=== PATIENT | female | born 2000 | race Caucasian/White ===

== ENCOUNTER 2020-08-25 10:22 | Emergency (ER) | payer OTHER, SELFPAY ==
[2020-08-25 10:36] VITALS: BP 128/79; PULSE 81; RESP 16; TEMP 37.4; O2SAT 96; BMI 24.1
--- NOTE | 2020-08-25 10:43 | ED.ABDPAIN ---
HPI - Abdominal Pain General Chief Complaint: Abdominal Pain Stated Complaint: ABD PAIN Time Seen by Provider: 08/25/20 10:35 Source: patient Mode of arrival: ambulatory Limitations: no limitations History of Present Illness HPI narrative: Patient comes to emergency room complaining of watery diarrhea for 1 week. Patient states she has mild intermittent abdominal cramping, at this time no pain. Patient denies vomiting, no fever. MD elicited complaint: other ( Diarrhea) Related Data Previous Rx's Medication Instructions Recorded loperamide 2 mg PO Q6H PRN #10 tab 08/25/20 Allergies Allergy/AdvReac Type Severity Reaction Status Date / Time No Known Allergies Allergy Unverified 07/18/20 16:43 [No Known Allergies*] Review of Systems Review of Systems Constitutional : No Weight loss, No Fever, No Chills, No Night Sweats, No Fatigue, No Malaise ENT/Mouth : No Hearing loss, No Ear Pain, No Nasal Congestion, No Sinus Pain, No Hoarseness, No sore throat, No Rhinorrhea, No Swallowing Difficulty Eyes: No Eye Pain, No Swelling, No Redness, No Foreign Body, No Discharge, No Vision Changes Cardiovascular : No Chest Pain, No SOB, No Dyspnea on Exertion, No Orthopnea, No Edema, No Palpitations Respiratory : No Cough, No Sputum, No Wheezing, No Smoke Exposure, No Dyspnea Gastrointestinal : No Nausea, No Vomiting, complaining of watery diarrhea, intermittent abdominal cramping Genitourinary : no irregular bleeding, No Dysuria, No Urinary Frequency, No Hematuria, No Urinary Incontinence, No Urgency, No Flank Pain, No Urinary Flow Changes, No Hesitancy Musculoskeletal : No joint pain, No Myalgias, No Joint Swelling Skin : No Skin Lesions, No rash Neuro : No Weakness, No Numbness, No Paresthesias, No Loss of Consciousness, No Dizziness, No Headache Psych : No Anxiety/Panic, No Depression, No SI/HI/AH/VH, No Social Issues, Heme/Lymph: No Bruising, No Bleeding,No Lymphadenopathy Endocrine : No Polyuria, No Polydipsia, No Temperature Intolerance Yes all other systems are reviewed and are negative Physical Exam Vital Signs: Vital Signs: Vital Signs Temp Pulse Resp BP Pulse Ox 08/25/20 11:48 99.6 F 75 16 119/63 98 08/25/20 10:36 99.4 F 81 16 128/79 96 Body Mass Index 24.1 Appearance: Alert. Oriented X3. No acute distress. Eyes: Pupils equal, round and reactive to light. ENT: Pharynx normal. Neck: Normal inspection. Neck supple. No lymph nodes noted. No crepitus CVS: Normal heart rate and rhythm. Pulses normal. Normal S1 and S2 Respiratory: No respiratory distress. Breath sounds normal. No Wheezing. No rales Abdomen: Soft and nontender. No rigidity. No distention. good BS x4 Skin: Skin warm and dry. Normal skin color. Normal skin turgor. Extremities: No lower extremity edema. No lower extremity edema. No Lacerations. No Rash Neuro: Oriented X 3. No motor deficit. No sensory deficit. Moving all extermities. No slurred speech. Course Course Course Narrative: patient feeling better, no longer having diarrhea no abdominal pain, no cramping. Patient's symptoms likely secondary to a viral illness MDM - Abdominal Pain Lab Data Result diagrams: 08/25/20 10:48 08/25/20 10:48 Labs: Lab Results 08/25/20 08/25/20 08/25/20 Range/Units 10:48 10:48 11:47 WBC 5.0 (4.8-10.8) X10*3/uL RBC 4.28 (4.20-5.50) X10*6/uL Hgb 12.3 (12.0-16.0) g/dl Hct 37.4 (37-47) % MCV 87.4 (80-98) fL MCH 28.7 (27.0-33.0) pg MCHC 32.9 (31.0-35.0) g/dl RDW 12.2 (11.0-16.0) % Plt Count 143 L (160-400) X10*3/uL MPV 10.1 (9.4-12.3) fL Immature Gran % (Auto) 0.0 (0.0-0.4) % Neut % (Auto) 51.1 (45-73) % Lymph % (Auto) 37.9 (20-40) % Sharkey % (Auto) 10.4 (2-11) % Eos % (Auto) 0.2 (0-4) % Baso % (Auto) 0.4 (0-2) % Lymph # (Auto) 1.9 (1.2-4.9) X10*3/uL Sharkey # (Auto) 0.5 (0.1-1.2) X10*3/uL Eos # (Auto) 0.0 (0.0-0.4) X10*3/uL Baso # (Auto) 0.0 (0.0-0.2) X10*3/uL Abs Immat Gran (auto) 0.00 (0.00-0.03) X10*3/uL Absolute Neuts (auto) 2.6 (2.0-8.3) X10*3/uL Absolute Nucleated RBC 0.000 (0.0-0.012) X10*3/uL Nucleated RBC % (auto) 0.0 (0.0-0.2) /100WBC Smear Tech's Comments VERIFIED Sodium 136 (135-145) mmol/L Potassium 3.5 (3.3-5.1) mmol/l Chloride 101 (96-108) mmol/L Carbon Dioxide 24 (22-29) mmol/L Anion Gap 15 (12-20) BUN 11 (9-16) mg/dL Creatinine 0.77 (0.5-1.4) mg/dL Estim Creat Clear Calc 94.7 Estimated GFR > 60 Random Glucose 107 (60-115) mg/dL Calcium 9.2 (8.4-10.2) mg/dL Total Bilirubin 0.5 (0.0-1.0) mg/dL Direct Bilirubin 0.2 (0.0-0.5) mg/dL AST 28 (5-31) U/L ALT 17 (0-31) U/L Alkaline Phosphatase 38 L (39-117) U/L Total Protein 7.4 (6.5-8.0) g/dL Albumin 4.4 (3.5-5.0) g/dL Lipase 21 (8-78) U/L Urine Color YELLOW Urine Appearance HAZY Urine pH 6.0 (5.0-8.0) Ur Specific [place] 1.020 (1.005-1.025) Urine Protein TRACE (NEG-TRACE) MG/DL Urine Glucose (UA) NEG (NEG) MG/DL Urine Ketones >=80 (NEG) MG/DL Urine Blood TRACE (NEG) Urine Nitrite NEG (NEG) Ur Leukocyte Esterase NEG (NEG) Urine RBC 0-2 (0) /HPF Urine WBC 0-2 (0-4) /HPF Ur Squamous Epith Cells 2+ /LPF Urine Bacteria 1+ /LPF Urine Mucus 2+ /LPF Urine Test NEGATIVE (NEGATIVE) Discharge Plan Discharge Clinical Impression: Diarrhea Qualifiers: Diarrhea type: unspecified type Qualified Code(s): R19.7 - Diarrhea, unspecified Patient Disposition: Home, Self-Care Instructions: Acute Diarrhea (ED) Additional Instructions: drink plenty of fluids ,especially drinks with electrolytes like Gatorade or Pedialyte. Please follow-up with your primary care physician tomorrow. If you have any worsening or new symptoms, please return to the emergency room or call 911 Prescriptions: New loperamide 2 mg tablet 2 mg PO Q6H PRN (Reason: loose stool) Qty: 10 RF: 0 PMFSH Past Medical History Medical History No known health problems Social History Social History Smoked in Last 30 Days: No Use of substances other than those prescribed or required for medical reasons: Yes Substance Use Type: Marijuana Advance Directives: No Advance Directives Information Provided: No
[2020-08-25] MEDS: Magnesium Hydrox/Alum Hydrox 30 ML ORAL.SUSP PO (10:52)
[2020-08-25] MEDS: 0.9 % Sodium Chloride 1,000 ML 999 ML IVCONT (10:52)
[2020-08-25] MEDS: Lidocaine HCl Viscous 2 % 15 ML SOLUTION MUCOUS MEM (10:52)
[2020-08-25] MEDS: PHENobarb/Hyoscy/Atropine/Scop 10 ML ELIXIR PO (10:53)
[2020-08-25 10:54] LABS: Basophils Percent Auto 0.4 % (0-2); Eosinophils Percent Auto 0.2 % (0-4); Hematocrit 37.4 % (37-47); Hemoglobin 12.3 g/dl (12.0-16.0); Lymphocytes Absolute Auto 1.9 X10*3/uL (1.2-4.9); Lymphocytes Percent Auto 37.9 % (20-40); MANUAL DIFF FLAG SCAN; Mean Corpuscular HGB Conc 32.9 g/dl (31.0-35.0); Mean Corpuscular Hemoglobin 28.7 pg (27.0-33.0); Mean Corpuscular Volume 87.4 fL (80-98); Mean Platelet Volume 10.1 fL (9.4-12.3); Monocytes Absolute Auto 0.5 X10*3/uL (0.1-1.2); Monocytes Percent Auto 10.4 % (2-11); Neutrophils Absolute Auto 2.6 X10*3/uL (2.0-8.3); Neutrophils Percent Auto 51.1 % (45-73); Platelet Count 143 X10*3/uL (160-400); Red Blood Count 4.28 X10*6/uL (4.20-5.50); Red Cell Distribution Width 12.2 % (11.0-16.0); SCAN SMEAR FLAG 1
[2020-08-25 11:26] LABS: SLIDE REVIEW VERIFIED
[2020-08-25 11:36] LABS: Alanine Aminotransferase 17 U/L (0-31); Albumin Level 4.4 g/dL (3.5-5.0); Alkaline Phosphatase 38 U/L (39-117); Anion Gap 15 (12-20); Aspartate Amino Transferase 28 U/L (5-31); Bilirubin Direct 0.2 mg/dL (0.0-0.5); Bilirubin Total 0.5 mg/dL (0.0-1.0); Blood Urea Nitrogen 11 mg/dL (9-16); Calcium 9.2 mg/dL (8.4-10.2); Carbon Dioxide 24 mmol/L (22-29); Chloride 101 mmol/L (96-108); Creatinine Clr Calc Pharmacy 94.7; Estimated Glomerular Filt Rate > 60; Glucose Random 107 mg/dL (60-115); Lipase 21 U/L (8-78); Potassium 3.5 mmol/l (3.3-5.1); Sodium 136 mmol/L (135-145); Total Protein 7.4 g/dL (6.5-8.0)
[2020-08-25 11:48] VITALS: BP 119/63; PULSE 75; RESP 16; TEMP 37.6; O2SAT 98
--- NOTE | 2020-08-25 11:50 | PC.NURSE ---
pt reports relief of pain/abdominal discomfort since medicated.
[2020-08-25 12:01] LABS: Glucose Urine UA NEG (NEG); Leukocyte Esterase Urine NEG (NEG); Nitrite Urine NEG (NEG); Urine Blood TRACE (NEG); Urine Ketones >=80 MG/DL (NEG); Urine Protein TRACE MG/DL (NEG-TRACE)
[2020-08-25 12:02] LABS: Appearance Urine HAZY; Color Urine YELLOW
[2020-08-25 12:07] LABS: Bacteria Urine 1+ /LPF; Mucus Urine 2+ /LPF; RBC Urine 0-2 /HPF (0); Squamous Epithelial Cell Urine 2+ /LPF; WBC Urine 0-2 /HPF (0-4)
[2020-08-25 12:09] LABS: UPreg QC Valid YES; Urine Pregnancy NEGATIVE (NEGATIVE)
== END 2020-08-25 13:17 | disposition home or self-care (01) ==
PROVIDERS: Emergency Provider Emergency Medicine
DX: R19.7 Diarrhea, unspecified (principal); R10.9 Unspecified abdominal pain; Z79.899 Other long term (current) drug therapy
CPT/HCPCS: 36415; 80048; 80076; 81001; 81003; 81025; 83690; 85025; 96360; 99284

== ENCOUNTER 2020-08-29 22:25 | Emergency (ER) | payer OTHER, SELFPAY ==
[2020-08-29 22:39] VITALS: BP 112/61; PULSE 100; RESP 16; TEMP 37.1; O2SAT 99; BMI 23.0
--- NOTE | 2020-08-29 22:53 | ED.URI ---
HPI - URI/Sore Throat General Chief Complaint: Fever Stated Complaint: FEVER Time Seen by Provider: 08/29/20 22:53 Source: patient Mode of arrival: ambulatory Limitations: no limitations History of Present Illness MD elicited complaint: fever, cough and sore throat Onset (ago): day(s) (5) Consistency: constant Severity: moderate Description of mucous: clear Able to tolerate fluids by mouth: Yes Exacerbating factors: nothing Relieving factors: nothing Context: sick contacts Associated symptoms: fever, chills, cough and diarrhea Treatments prior to arrival: none Related Data Previous Rx's Medication Instructions Recorded loperamide 2 mg PO Q6H PRN #10 tab 08/25/20 ondansetron 4 mg PO Q8H PRN #20 tab 08/29/20 Allergies Allergy/AdvReac Type Severity Reaction Status Date / Time No Known Allergies Allergy Unverified 07/18/20 16:43 [No Known Allergies*] Review of Systems Review of Systems: Constitutional : positive Fever, positive Chills, positive fatigue, positive Malaise ENT/Mouth : positive sore throat, positive runny nose Eyes: No Discharge Cardiovascular : No Chest Pain, No SOB Respiratory : pos Cough, No Sputum Gastrointestinal : No Nausea, No Vomiting, pos Diarrhea Genitourinary : No Dysuria, No Urinary Frequency Musculoskeletal : positive Myalgia Skin : No rash Neuro : No Headache PMFSH Past Medical History Medical History Migraine No known health problems Social History Social History Substance Use Type: Marijuana Advance Directives: No Advance Directives Information Provided: No Physical Exam Vital Signs: Vital Signs: Vital Signs Temp Pulse Resp BP Pulse Ox 08/29/20 22:39 98.7 F 100 16 112/61 99 Body Mass Index 23.0 Appearance: Alert. Oriented X3. No acute distress. Eyes: Pupils equal, round and reactive to light. ENT: Pharynx normal. Neck: Normal inspection. Neck supple. CVS: Normal heart rate and rhythm. Pulses normal. Respiratory: No respiratory distress. Breath sounds normal. Abdomen: Soft and nontender. Skin: Skin warm and dry. Normal skin color. Normal skin turgor. Extremities: No lower extremity edema. No calf ttp Neuro: Oriented X 3. No motor deficit. No sensory deficit. MDM - URI/Sore Throat MDM Narrative Medical decision making narrative: 20 yo female just seen this past week for fevers, diarrhea and URI symptoms dx with COVID - here with fevers and wants retest, not toxic, well hydrated, no hypoxia, clear lungs, stable for DC Discharge Plan Discharge Clinical Impression: Acute viral syndrome Patient Disposition: Home, Self-Care Instructions: COVID-19 (Coronavirus Disease 2019) (ED) Additional Instructions: you were tested for COVID we will call you with results in 2 to 4 days, wear a mask, socially distance Prescriptions: New ondansetron 4 mg tablet,disintegrating 4 mg PO Q8H PRN (Reason: nausea and vomiting) Qty: 20 RF: 0 No Action loperamide 2 mg tablet 2 mg PO Q6H PRN (Reason: loose stool) Qty: 10 RF: 0 Stand Alone Forms: Work/School Release
== END 2020-08-29 23:25 | disposition home or self-care (01) ==
PROVIDERS: Emergency Provider Emergency Medicine
DX: R50.9 Fever, unspecified (principal); B34.9 Viral infection, unspecified; Z20.828 Contact with and (suspected) exposure to other viral communicable diseases
CPT/HCPCS: 99283; 99284; U0003

== ENCOUNTER 2020-10-07 13:25 | Outpatient (REF) | payer OTHER, SELFPAY | END 2020-10-07 13:26 | disposition home or self-care (01) | LOC: HO.LAB 13:25 | PROVIDERS: Visit Provider Internal Medicine | DX: Z20.828 Contact with and (suspected) exposure to other viral communicable diseases (principal) | CPT/HCPCS: C9803; U0003 ==

== ENCOUNTER 2020-10-21 13:08 | Outpatient (REF) | payer MEDICAID, SELFPAY | END 2020-10-21 13:09 | disposition home or self-care (01) | LOC: HO.LAB 13:08 | PROVIDERS: Visit Provider Internal Medicine | DX: Z20.828 Contact with and (suspected) exposure to other viral communicable diseases (principal) | CPT/HCPCS: C9803; U0003 ==

== ENCOUNTER 2021-01-02 09:28 | Emergency (ER) | payer MEDICAID, SELFPAY ==
--- NOTE | ~2021-01-02 | US_ITS ---
EXAMINATION: ULTRASOUND ABDOMEN LIMITED AND ULTRASOUND OB LESS THAN 14 WEEKS. CLINICAL INFORMATION: Diffuse abdominal pain with prosthetic test. COMPARISON: None TECHNIQUE: Limited abdominal ultrasound was performed through the right upper quadrant. In addition routine transabdominal imaging of pelvis is performed. FINDINGS: Abdomen limited: The pancreas is homogeneous in echotexture and normal size. The gallbladder is well-visualized without any echogenic stones or wall thickening. No tenderness in right upper quadrant. CBD measures 0.5 cm. OB ultrasound: There is single intrauterine distal sac, pole or yolk sac. heart rate is 135 bpm. motion is not visualized at this time.. The crown-rump length measures 0.76 cm corresponding to 6 weeks 5 days and RICHARD of 08/23/2021. By LMP the clinical gestational age is 7 weeks 3 days and RICHARD of 08/18/2021. Incidental noted is a small subchorionic hypoechoic area consistent with bleed The right ovary measures 3.8 x 2.1 x 1.8 cm in. There is a corpus luteal cyst measuring 1.4 x 1.6 x 1.4 cm. The left ovary measures 1.6 x 1.7 x 2.2 cm. There is no free fluid in the cul-de-sac. US/US abdomen limited IMPRESSION: Unremarkable gallbladder and pancreas. Single live intrauterine fetus with an ultrasound gestational age of 6 weeks and 5 days and RICHARD of 08/23/2021. Suspect small subchorionic bleed
--- NOTE | ~2021-01-02 | US_ITS ---
EXAMINATION: ULTRASOUND ABDOMEN LIMITED AND ULTRASOUND OB LESS THAN 14 WEEKS. CLINICAL INFORMATION: Diffuse abdominal pain with prosthetic test. COMPARISON: None TECHNIQUE: Limited abdominal ultrasound was performed through the right upper quadrant. In addition routine transabdominal imaging of pelvis is performed. FINDINGS: Abdomen limited: The pancreas is homogeneous in echotexture and normal size. The gallbladder is well-visualized without any echogenic stones or wall thickening. No tenderness in right upper quadrant. CBD measures 0.5 cm. OB ultrasound: There is single intrauterine distal sac, pole or yolk sac. heart rate is 135 bpm. motion is not visualized at this time.. The crown-rump length measures 0.76 cm corresponding to 6 weeks 5 days and RICHARD of 08/23/2021. By LMP the clinical gestational age is 7 weeks 3 days and RICHARD of 08/18/2021. Incidental noted is a small subchorionic hypoechoic area consistent with bleed The right ovary measures 3.8 x 2.1 x 1.8 cm in. There is a corpus luteal cyst measuring 1.4 x 1.6 x 1.4 cm. The left ovary measures 1.6 x 1.7 x 2.2 cm. There is no free fluid in the cul-de-sac. US/US OB <= 14 weeks fetus IMPRESSION: Unremarkable gallbladder and pancreas. Single live intrauterine fetus with an ultrasound gestational age of 6 weeks and 5 days and RICHARD of 08/23/2021. Suspect small subchorionic bleed
[2021-01-02 09:30] VITALS: BP 142/88; PULSE 54; RESP 12; TEMP 37.1; O2SAT 97; BMI 24.6
--- NOTE | 2021-01-02 10:24 | PC.NURSE ---
SEEN BY PROVIDER. IV EST 20 G L AC. BLOOD, URINE AND COVID TEST TO LAB.
[2021-01-02 10:31] LABS: MANUAL DIFF FLAG NO
[2021-01-02] MEDS: Acetaminophen 325 MG TABLET 650 MG PO (10:32)
[2021-01-02] MEDS: 0.9 % Sodium Chloride 1,000 ML 999 ML IVCONT ×3 (10:32→14:22)
[2021-01-02] MEDS: ondansetron HCL 4 MG/2 ML VIAL IVPUSH (10:32)
--- NOTE | 2021-01-02 10:33 | PC.NURSE ---
MEDICATED PER ORDERS
[2021-01-02 10:34] LABS: Basophils Percent Auto 0.2 % (0-2); Eosinophils Percent Auto 0.1 % (0-4); Hemoglobin 13.3 g/dl (12.0-16.0); Imm Gran Abs Auto 0.07 X10*3/uL (0.00-0.03); Imm Gran Pct Auto 0.5 % (0.0-0.4); Lymphocytes Absolute Auto 2.6 X10*3/uL (1.2-4.9); Lymphocytes Percent Auto 19.6 % (20-40); Mean Corpuscular Hemoglobin 29.5 pg (27.0-33.0); Mean Corpuscular Volume 84.3 fL (80-98); Mean Platelet Volume 9.5 fL (9.4-12.3); Monocytes Absolute Auto 0.6 X10*3/uL (0.1-1.2); Monocytes Percent Auto 4.7 % (2-11); Neutrophils Absolute Auto 9.9 X10*3/uL (2.0-8.3); Neutrophils Percent Auto 74.9 % (45-73); Platelet Count 267 X10*3/uL (160-400); Red Blood Count 4.51 X10*6/uL (4.20-5.50); Red Cell Distribution Width 12.1 % (11.0-16.0); White Blood Count 13.2 X10*3/uL (4.8-10.8)
[2021-01-02 10:35] LABS: Glucose Urine UA NEG (NEG); Leukocyte Esterase Urine NEG (NEG); Nitrite Urine NEG (NEG); Specific Gravity - Urine 1.025 (1.005-1.025); UPreg QC Valid YES; Urine Blood NEG (NEG); Urine Ketones 15 MG/DL (NEG); Urine Pregnancy POSITIVE (NEGATIVE); Urine Protein NEG (NEG-TRACE)
[2021-01-02 10:36] LABS: Appearance Urine HAZY; Color Urine YELLOW
[2021-01-02 10:40] LABS: INTERNATIONAL NORM RATIO 1.1 (0.9-1.1); Prothrombin Time 13.5 SEC (10.8-13.0)
[2021-01-02 11:09] LABS: Influenza A PCR NEGATIVE (Negative); Influenza B PCR NEGATIVE (Negative); Resp Syncy Virus RNA Qual PCR NEGATIVE (Negative); SARS COV2 PCR INHOUSE NEGATIVE (Negative)
[2021-01-02 11:38] LABS: Alanine Aminotransferase 10 U/L (0-31); Albumin Level 4.6 g/dL (3.5-5.0); Alkaline Phosphatase 37 U/L (39-117); Anion Gap 13 (12-20); Aspartate Amino Transferase 16 U/L (5-31); Bilirubin Direct 0.2 mg/dL (0.0-0.5); Bilirubin Total 0.6 mg/dL (0.0-1.0); Blood Urea Nitrogen 7 mg/dL (9-16); Calcium 10.2 mg/dL (8.4-10.2); Carbon Dioxide 27 mmol/L (22-29); Chloride 98 mmol/L (96-108); Creatinine Clr Calc Pharmacy 109.8; Estimated Glomerular Filt Rate > 60; Glucose Random 110 mg/dL (60-115); Magnesium 2.2 mg/dL (1.6-2.6); Potassium 3.4 mmol/L (3.3-5.1); Sodium 135 mmol/L (135-145); Total Protein 7.9 g/dL (6.5-8.0)
--- NOTE | 2021-01-02 11:41 | ED_ITS ---
HPI - General Chief complaint: Nausea/Vomiting/Diarrhea Stated complaint: vomiting, abd pain Time Seen by Provider: 01/02/21 09:57 Source: patient Mode of arrival: ambulatory Limitations: no limitations History of Present Illness HPI Narrative: 20-year-old female with a past medical history of GERD and elsa aniket headaches to the ED with complaints of nausea/vomiting with epigastric abdominal pain for the past week and a half with a positive home test. Reports her last menstrual period was 09/20/2021. This is the patient's 1st . She denies ever having a miscarriage or . Reports that she was seen at [facility] recently for the same thing and had a positive test although they did not do an ultrasound for age. Patient reports that she has a follow-up appointment on January 06 with [facility]. Patient denies any fevers, headaches, dizziness, bloody emesis, chest pain, shortness of breath, dyspnea on exertion, orthopnea, palpitations, radiation of the abdominal pain, back pain, dysuria, hematuria, vaginal bleeding or vaginal discharge, diarrhea or constipation. Denies recent travel or sick contacts. Denies any other symptom complaints or concerns at this time. MD Complaint: abdominal pain Onset (ago): week(s) (A week and a half worse today) Pain Consistency: constant Location: abdomen (Epigastric area) Severity: severe Severity scale (1-10): >10 Quality: Cramping, Aching and Constant Relieving factors: none Exacerbating factors: eating and movement Associated symptoms: nausea and vomiting Vaginal discharge: none Vaginal bleeding: none Date of Last Menstrual Period: 11/11/20 Patient : Yes care: none Related Data Previous Rx's Medication Instructions Recorded loperamide 2 mg PO Q6H PRN #10 tab 08/25/20 ondansetron 4 mg PO Q8H PRN #20 tab 08/29/20 acetaminophen [Tylenol Extra 500 mg PO Q6H PRN #14 tab 01/02/21 Strength] metoclopramide HCl [Reglan] 10 mg PO Q6H PRN #30 tab 01/02/21 Allergies Allergy/AdvReac Type Severity Reaction Status Date / Time No Known Allergies Allergy Unverified 07/18/20 16:43 [No Known Allergies*] Review of Systems Review of Systems: Constitutional : No Fever, No Chills ENT/Mouth : No sore throat, No Rhinorrhea Eyes: No Eye Pain, No Redness Cardiovascular : No Chest Pain, No SOB Respiratory : No Cough, No Sputum, No Wheezing Gastrointestinal : + Nausea, + Vomiting, + Abdominal pain, No Diarrhea Genitourinary : No irregular bleeding, No Dysuria, No Urinary Frequency, No pelvic pain, No vaginal bleeding Musculoskeletal : No Myalgias Skin : No rash Neuro : No Weakness, No Headache Psych : No Anxiety/Panic, No Depression Heme/Lymph: No bruising, No Lymphadenopathy Endocrine : No Polyuria, No Polydipsia Yes all other systems are reviewed and are negative [facility] Past Medical History Attestation statement: The following information was validated with the patient. Medical History Migraine No known health problems Date of Last Menstrual Period: 11/11/20 Social History Social History Alcohol intake: never Smoking Status: Never smoker Use of substances other than those prescribed or required for medical reasons: No Substance Use Type: Marijuana Advance Directives: No Advance Directives Information Provided: No Physical Exam Vital Signs: Vital Signs: Last Vital Signs Temp 98.7 F 01/02/21 09:30 Pulse 57 01/02/21 12:22 Resp 16 01/02/21 12:22 BP 128/77 01/02/21 12:22 Pulse Ox 98 01/02/21 12:22 Body Mass Index 24.6 vital signs have been reviewed as normal and appeared to be correct. Blood pressure hypertensive at 142/88. Heart rate normal. Respiration rate normal. Temperature normal. Oxygen saturation normal. Appearance: Alert. Oriented X3. Very anxious and tearful throughout exam. Otherwise no other acute distress. Head: Normal external exam. Normocephalic. Eyes: PERRLA. EOMI. Conjunctiva and sclera normal. Eyelids normal. ENT: Pharynx normal. Uvula midline. Moist mucous membranes. No trismus noted. No drooling noted. No muffled voice noted. Neck: Normal inspection. Neck supple. FROM. No adenopathy. No meningeal signs. CVS: Normal heart rate and rhythm. Heart sound normal. No murmurs noted. Pulses normal throughout. Respiratory: No respiratory distress. Painless inspiration. Breath sounds normal. No wheezes/rales/rhonchi noted. Chest nontender. No accessory muscle usage noted or decreased air movement noted. Abdomen: Soft and tenderness to palpation to epigastric abdominal area. Nondistended. No guarding. No rigidity. Bowel sounds normal in all 4 quadrants. No distention noted. No organomegaly noted. No visible injury noted. No rebound tenderness. Negative Rovsing sign. Negative obturator's sign. N egative psoas sign. Negative Hoang sign. No point tenderness in the right lower quadrant noted. Back: No CVA tenderness. Full range of motion noted. Skin: Skin warm and dry. Normal skin color. Normal skin turgor. No rashes/lesions/lacerations noted. Extremities: Extremities exhibit normal range of motion. No calf tenderness noted. Extremities nontender. Neuro: Oriented X 3. No motor deficit. No sensory deficit. Reflexes normal. Course Course Course Narrative: 10am - 20-year-old female with a past medical history of GERD and migraine headaches to the ED with complaints of nausea/vomiting with epigastric abdominal pain for the past week and a half with a positive home test. - on exam patient is alert and oriented x3. Is very anxious and tearful throughout exam otherwise not on any other acute distress. Patient was noted to be hypertensive at 142/88 otherwise all other vitals are within normal limits. Patient is noted to have mild tenderness to palpation to the epigastric abdominal area. No point tenderness to the right lower quadrant noted. No CVA tenderness noted. No lower extremity edema or swelling noted. - Concern for hyperemesis vs cholecystitis vs ectopic - Plan: Labs, UA, UHCG, serum quant, limited abdominal ultrasound to the p ancreas and gallbladder and the ultrasound of the fetus. Provide a L of IV fluids with 4 mg of Zofran and re-evaluate. Reevaluation(s) Reevaluation #1: - white blood cell count [id number]. - alkaline phosphate 37 - serum quant is appropriately elevated - UA revealed 15 ketones otherwise no evidence of UTI. - patient negative for COVID/RSV/flu. - limited abdominal ultrasound was within normal limits no acute processes and no gallstones noted. ultrasound revealed a single intrauterine distal sac, pole or yolk sac. heart rate is 135 although no motion visualized at this time. They measured the fetus and based on the fetus measurements the patient is 6 weeks and 5 days with estimated delivery date of 08/23/2021. They also incidentally noted there was a small subchorionic hypoechoic area consistent with bleed - therefore consulted with Dr. Kaur the OBGYN and he recommended Pepcid IV if the patient could tolerate the Phenergan due to she vomited after the Zofran IV 4 mg was given. He reported the Phenergan does not work that the patient can have Reglan. He also stated that the patient should have another L fluid and that I should recheck the ketones until the ketones are 0 and the patient's UA. He also recommended to give the patient information for possible miscarriage .- I went back into the patient's room and patient reported that the Zofran did not help, the Phenergan helped mildly although now her symptoms are back therefore will give Reglan give another L of fluids. I explained to her about the possible miscarriage due to the subchorionic bleed and to watch for signs of vaginal bleeding. - therefore at this time will give another L of IV fluid. 10 mg of Reglan and attempt a p.o. trial and recheck the patient's ketones. Patient understands agrees with this plan. Time: 12:47 Reevaluation #2: - when I went to re-evaluate the patient patient reported that she felt completely better and she was tolerating p.o. fluids after giving the IV Reglan and 2 L of IV fluids. - although I checked the patient's ketones with a UA and it went from 15 to greater than 80 - therefore consulted with Dr. Kaur at 2pm and he reported that ketosis takes longer to reverse he recommended me to keep her for another hour to give another L of IV fluids and if the patient was still tolerating diet she would be able to be discharged on Reglan. - therefore at this time patient is receiving the 3rd L of fluid and she is still tolerating p.o. fluids therefore will plan to discharge. Time: 16:03 MDM - OB/Uterine Contractions Medical Records Attestation: I reviewed the patient's medical records. Lab Data Attestation: I reviewed the patient's lab results. Result diagrams: 01/02/21 10:23 01/02/21 10:23 Labs: Lab Results 01/02/21 01/02/21 01/02/21 Range/Units 10:17 10:17 10:18 WBC (4.8-10.8) X10*3/uL RBC (4.20-5.50) X10*6/uL Hgb (12.0-16.0) g/dl Hct (37-47) % MCV (80-98) fL MCH (27.0-33.0) pg MCHC (31.0-35.0) g/dl RDW (11.0-16.0) % Plt Count (160-400) X10*3/uL MPV (9.4-12.3) fL Immature Gran % (Auto) (0.0-0.4) % Neut % (Auto) (45-73) % Lymph % (Auto) (20-40) % [place] % (Auto) (2-11) % Eos % (Auto) (0-4) % Baso % (Auto) (0-2) % Lymph # (Auto) (1.2-4.9) X10*3/uL [place] # (Auto) (0.1-1.2) X10*3/uL Eos # (Auto) (0.0-0.4) X10*3/uL Baso # (Auto) (0.0-0.2) X10*3/uL Abs Immat Gran (auto) (0.00-0.03) X10*3/uL Absolute Neuts (auto) (2.0-8.3) X10*3/uL Absolute Nucleated RBC (0.0-0.012) X10*3/uL Nucleated RBC % (auto) (0.0-0.2) /100WBC PT (10.8-13.0) SEC INR (0.9-1.1) Sodium (135-145) mmol/L Potassium (3.3-5.1) mmol/L Chloride (96-108) mmol/L Carbon Dioxide (22-29) mmol/L Anion Gap (12-20) BUN (9-16) mg/dL Creatinine (0.5-1.4) mg/dL Estim Creat Clear Calc Estimated GFR Random Glucose (60-115) mg/dL Calcium (8.4-10.2) mg/dL Magnesium (1.6-2.6) mg/dL Total Bilirubin (0.0-1.0) mg/dL Direct Bilirubin (0.0-0.5) mg/dL AST (5-31) U/L ALT (0-31) U/L Alkaline Phosphatase (39-117) U/L Total Protein (6.5-8.0) g/dL Albumin (3.5-5.0) g/dL Beta HCG, Quant mIU/mL Urine Color YELLOW Urine Appearance HAZY Urine pH 6.0 (5.0-8.0) Ur Specific [place] 1.025 (1.005-1.025) Urine Protein NEG (NEG-TRACE) MG/DL Urine Glucose (UA) NEG (NEG) MG/DL Urine Ketones 15 (NEG) MG/DL Urine Blood NEG (NEG) Urine Nitrite NEG (NEG) Ur Leukocyte Esterase NEG (NEG) Urine Test POSITIVE H (NEGATIVE) Coronavirus (PCR) NEGATIVE (Negative) Influenza Type A (PCR) NEGATIVE (Negative) Influenza Type B (PCR) NEGATIVE (Negative) RSV RNA Qual (PCR) NEGATIVE (Negative) 01/02/21 01/02/21 01/02/21 Range/Units 10:23 10:23 10:23 WBC 13.2 H (4.8-10.8) X10*3/uL RBC 4.51 (4.20-5.50) X10*6/uL Hgb 13.3 (12.0-16.0) g/dl Hct 38.0 (37-47) % MCV 84.3 (80-98) fL MCH 29.5 (27.0-33.0) pg MCHC 35.0 (31.0-35.0) g/dl RDW 12.1 (11.0-16.0) % Plt Count 267 D (160-400) X10*3/uL MPV 9.5 (9.4-12.3) fL Immature Gran % (Auto) 0.5 H (0.0-0.4) % Neut % (Auto) 74.9 H (45-73) % Lymph % (Auto) 19.6 L (20-40) % [place] % (Auto) 4.7 (2-11) % Eos % (Auto) 0.1 (0-4) % Baso % (Auto) 0.2 (0-2) % Lymph # (Auto) 2.6 (1.2-4.9) X10*3/uL [place] # (Auto) 0.6 (0.1-1.2) X10*3/uL Eos # (Auto) 0.0 (0.0-0.4) X10*3/uL Baso # (Auto) 0.0 (0.0-0.2) X10*3/uL Abs Immat Gran (auto) 0.07 H (0.00-0.03) X10*3/uL Absolute Neuts (auto) 9.9 H (2.0-8.3) X10*3/uL Absolute Nucleated RBC 0.000 (0.0-0.012) X10*3/uL Nucleated RBC % (auto) 0.0 (0.0-0.2) /100WBC PT 13.5 H (10.8-13.0) SEC INR 1.1 (0.9-1.1) Sodium 135 (135-145) mmol/L Potassium 3.4 (3.3-5.1) mmol/L Chloride 98 (96-108) mmol/L Carbon Dioxide 27 (22-29) mmol/L Anion Gap 13 (12-20) BUN 7 L (9-16) mg/dL Creatinine 0.67 (0.5-1.4) mg/dL Estim Creat Clear Calc 109.8 Estimated GFR > 60 Random Glucose 110 (60-115) mg/dL Calcium 10.2 D (8.4-10.2) mg/dL Magnesium 2.2 (1.6-2.6) mg/dL Total Bilirubin 0.6 (0.0-1.0) mg/dL Direct Bilirubin 0.2 (0.0-0.5) mg/dL AST 16 D (5-31) U/L ALT 10 (0-31) U/L Alkaline Phosphatase 37 L (39-117) U/L Total Protein 7.9 (6.5-8.0) g/dL Albumin 4.6 (3.5-5.0) g/dL Beta HCG, Quant 85555 mIU/mL Urine Color Urine Appearance Urine pH (5.0-8.0) Ur Specific [place] (1.005-1.025) Urine Protein (NEG-TRACE) MG/DL Urine Glucose (UA) (NEG) MG/DL Urine Ketones (NEG) MG/DL Urine Blood (NEG) Urine Nitrite (NEG) Ur Leukocyte Esterase (NEG) Urine Test (NEGATIVE) Coronavirus (PCR) (Negative) Influenza Type A (PCR) (Negative) Influenza Type B (PCR) (Negative) RSV RNA Qual (PCR) (Negative) 01/02/21 Range/Units 13:48 WBC (4.8-10.8) X10*3/uL RBC (4.20-5.50) X10*6/uL Hgb (12.0-16.0) g/dl Hct (37-47) % MCV (80-98) fL MCH (27.0-33.0) pg MCHC (31.0-35.0) g/dl RDW (11.0-16.0) % Plt Count (160-400) X10*3/uL MPV (9.4-12.3) fL Immature Gran % (Auto) (0.0-0.4) % Neut % (Auto) (45-73) % Lymph % (Auto) (20-40) % [place] % (Auto) (2-11) % Eos % (Auto) (0-4) % Baso % (Auto) (0-2) % Lymph # (Auto) (1.2-4.9) X10*3/uL [place] # (Auto) (0.1-1.2) X10*3/uL Eos # (Auto) (0.0-0.4) X10*3/uL Baso # (Auto) (0.0-0.2) X10*3/uL Abs Immat Gran (auto) (0.00-0.03) X10*3/uL Absolute Neuts (auto) (2.0-8.3) X10*3/uL Absolute Nucleated RBC (0.0-0.012) X10*3/uL Nucleated RBC % (auto) (0.0-0.2) /100WBC PT (10.8-13.0) SEC INR (0.9-1.1) Sodium (135-145) mmol/L Potassium (3.3-5.1) mmol/L Chloride (96-108) mmol/L Carbon Dioxide (22-29) mmol/L Anion Gap (12-20) BUN (9-16) mg/dL Creatinine (0.5-1.4) mg/dL Estim Creat Clear Calc Estimated GFR Random Glucose (60-115) mg/dL Calcium (8.4-10.2) mg/dL Magnesium (1.6-2.6) mg/dL Total Bilirubin (0.0-1.0) mg/dL Direct Bilirubin (0.0-0.5) mg/dL AST (5-31) U/L ALT (0-31) U/L Alkaline Phosphatase (39-117) U/L Total Protein (6.5-8.0) g/dL Albumin (3.5-5.0) g/dL Beta HCG, Quant mIU/mL Urine Color STRAW Urine Appearance CLOUDY Urine pH 7.5 (5.0-8.0) Ur Specific [place] 1.010 (1.005-1.025) Urine Protein NEG (NEG-TRACE) MG/DL Urine Glucose (UA) NEG (NEG) MG/DL Urine Ketones >=80 (NEG) MG/DL Urine Blood NEG (NEG) Urine Nitrite NEG (NEG) Ur Leukocyte Esterase NEG (NEG) Urine Test (NEGATIVE) Coronavirus (PCR) (Negative) Influenza Type A (PCR) (Negative) Influenza Type B (PCR) (Negative) RSV RNA Qual (PCR) (Negative) Imaging Data Limited abdominal ultrasound and ultrasound: Attestation: I personally reviewed and interpreted this imaging study as follows: Radiologist's impression: FINDINGS: Abdomen limited: The pancreas is homogeneous in echotexture and normal size. The gallbladder is well-visualized without any echogenic stones or wall thickening. No tenderness in right upper quadrant. CBD measures 0.5 cm. OB ultrasound: There is single intrauterine distal sac, pole or yolk sac. heart rate is 135 bpm. motion is not visualized at this time.. The crown-rump length measures 0.76 cm corresponding to 6 weeks 5 days and RICHARD of 08/23/2021. By LMP the clinical gestational age is 7 weeks 3 days and RICHARD of 08/18/2021. Incidental noted is a small subchorionic hypoechoic area consistent with bleed The right ovary measures 3.8 x 2.1 x 1.8 cm in. There is a corpus luteal cyst measuring 1.4 x 1.6 x 1.4 cm. The left ovary measures 1.6 x 1.7 x 2.2 cm. There is no free fluid in the cul-de-sac. US/US abdomen limited IMPRESSION: Unremarkable gallbladder and pancreas. Single live intrauterine fetus with an ultrasound gestational age of 6 weeks and 5 days and RICHARD of 08/23/2021. Suspect small subchorionic bleed Critical Care Time Critical Care Time Critical Care Time: Yes Total Critical Care Time: 60 Attestation: I personally attest to this time spent taking care of the patient Discharge Plan Discharge Clinical Impression: , Subchorionic bleed, Nausea and vomiting during prior to 22 weeks gestation, Acute dehydration, Threatened miscarriage Patient Disposition: Home, Self-Care Instructions: Threatened Miscarriage (ED), Nausea and Vomiting in (ED), Dehydration (ED), at 7 to 10 Weeks (ED) Additional Instructions: If you have any worsening abdominal pain and are unable to keep anything down please return to the emergency department. Please watch for any vaginal bleeding if this develops you need to return immediately to the emergency department. Return if any new or worsening symptoms follow-up with her OBGYN as scheduled on January 06. Prescriptions: New metoclopramide HCl [Reglan] 10 mg tablet 10 mg PO Q6H PRN (Reason: nausea and vomiting) Qty: 30 RF: 0 acetaminophen [Tylenol Extra Strength] 500 mg tablet 500 mg PO Q6H PRN (Reason: pain) Qty: 14 RF: 0 No Action loperamide 2 mg tablet 2 mg PO Q6H PRN (Reason: loose stool) Qty: 10 RF: 0 ondansetron 4 mg tablet,disintegrating 4 mg PO Q8H PRN (Reason: nausea and vomiting) Qty: 20 RF: 0 Referrals: Wallace Kaur MD [Physician] - 2 days Print Language: Honduran
[2021-01-02 12:22] VITALS: BP 128/77; PULSE 57; RESP 16; O2SAT 98
[2021-01-02] MEDS: Metoclopramide HCl 10 MG/2 ML VIAL IVPUSH (12:55)
--- NOTE | 2021-01-02 13:26 | PC.NURSE ---
PT REPORTED ONGOING NAUSEA, WORSENED BY THIS [employer]OL MANAGER WAKING HER IN HER ROOM TO ADMINISTER NAUSEA RXS. VS WNL, DENIES ANY ABD PAIN AT THIS TIME. WILL CONTINUE TO MONITOR.
[2021-01-02 14:00] LABS: Glucose Urine UA NEG (NEG); Leukocyte Esterase Urine NEG (NEG); Nitrite Urine NEG (NEG); PH 7.5 (5.0-8.0); Urine Blood NEG (NEG); Urine Ketones >=80 MG/DL (NEG); Urine Protein NEG (NEG-TRACE)
[2021-01-02 14:01] LABS: Appearance Urine CLOUDY; Color Urine STRAW
[2021-01-02] MEDS: Dextrose 5 % and 0.9 % NaCl 1,000 ML 125 ML IVCONT (15:19)
--- NOTE | 2021-01-02 15:19 | PC.NURSE ---
DEXTROSE/NACL RUNNING AT 200MLS/HR PER VERBAL ORDER FROM MD TURCIOS.
[2021-01-02 16:19] VITALS: BP 106/66; PULSE 71; RESP 18; TEMP 36.8; O2SAT 98
--- NOTE | 2021-01-02 16:27 | PC.NURSE ---
CLEARED FOR DC BY PROVIDER. VITALS UPDATED. IV DC'ED
== END 2021-01-02 16:29 | disposition home or self-care (01) ==
PROVIDERS: Physician Assistant Medical; Emergency Provider Emergency Medicine
DX: O20.0 Threatened abortion (principal); O20.9 Hemorrhage in early pregnancy, unspecified; E86.0 Dehydration; Z3A.22 22 weeks gestation of pregnancy; Z20.822 Contact with and (suspected) exposure to COVID-19; Z79.899 Other long term (current) drug therapy
CPT/HCPCS: 99291; 0241U; 36415; 76705; 76801; 80048; 80076; 81003; 81025; 83735; 84702; 85025; 85610; 96361; 96365; 96375; 96376; 99284; J2405; J2765

== ENCOUNTER 2021-01-09 12:14 | Emergency (ER) | payer OTHER, SELFPAY ==
--- NOTE | ~2021-01-09 | US_ITS ---
EXAMINATION: US OBSTETRICAL ULTRASOUND CLINICAL INFORMATION: Abdominal cramping with nausea and vomiting and history of subchorionic bleed COMPARISON: 01/02/2021. TECHNIQUE: Transabdominal ultrasound was performed FINDINGS: There is a single intrauterine gestational sac with visible yolk sac, embryo/fetus, and cardiac activity. There is no significant subchorionic hemorrhage or hematoma. A gestational sac is present in the uterus with a yolk sac noted. A pole is seen, however there is no motion and no heart rate detected. The lack of the heartbeat was confirmed by 2 sonographers. The crown-rump length is 1.66 cm which would correspond with a gestational age of 8 weeks 1 day. No evidence of a subchorionic hemorrhage. US/US OB <= 14 weeks fetus IMPRESSION: A gestational sac is present. The visualized fetus has no heartbeat.
[2021-01-09 12:42] VITALS: BP 138/84; PULSE 60; RESP 18; TEMP 36.7; O2SAT 100; BMI 24.5
[2021-01-09 12:58] LABS: MANUAL DIFF FLAG NO
[2021-01-09 13:02] LABS: Basophils Percent Auto 0.1 % (0-2); Hematocrit 34.7 % (37-47); Hemoglobin 12.2 g/dl (12.0-16.0); Imm Gran Abs Auto 0.06 X10*3/uL (0.00-0.03); Imm Gran Pct Auto 0.4 % (0.0-0.4); Lymphocytes Absolute Auto 2.7 X10*3/uL (1.2-4.9); Lymphocytes Percent Auto 18.1 % (20-40); Mean Corpuscular HGB Conc 35.2 g/dl (31.0-35.0); Mean Corpuscular Hemoglobin 29.6 pg (27.0-33.0); Mean Corpuscular Volume 84.2 fL (80-98); Mean Platelet Volume 9.6 fL (9.4-12.3); Monocytes Absolute Auto 0.7 X10*3/uL (0.1-1.2); Monocytes Percent Auto 4.4 % (2-11); Neutrophils Absolute Auto 11.5 X10*3/uL (2.0-8.3); Platelet Count 262 X10*3/uL (160-400); Red Blood Count 4.12 X10*6/uL (4.20-5.50); Red Cell Distribution Width 12.1 % (11.0-16.0); White Blood Count 14.9 X10*3/uL (4.8-10.8)
[2021-01-09 13:29] LABS: Alanine Aminotransferase 8 U/L (0-31); Albumin Level 4.5 g/dL (3.5-5.0); Alkaline Phosphatase 34 U/L (39-117); Anion Gap 14 (12-20); Aspartate Amino Transferase 15 U/L (5-31); Bilirubin Total 0.7 mg/dL (0.0-1.0); Blood Urea Nitrogen 8 mg/dL (9-16); Calcium 10.1 mg/dL (8.4-10.2); Carbon Dioxide 27 mmol/L (22-29); Chloride 100 mmol/L (96-108); Creatinine Clr Calc Pharmacy 111.2; Estimated Glomerular Filt Rate > 60; Glucose Random 110 mg/dL (60-115); Lipase 14 U/L (8-78); Potassium 3.5 mmol/L (3.3-5.1); Sodium 137 mmol/L (135-145); Total Protein 7.6 g/dL (6.5-8.0)
[2021-01-09 13:37] LABS: Glucose Urine UA NEG (NEG); Leukocyte Esterase Urine NEG (NEG); Nitrite Urine NEG (NEG); Urine Blood TRACE (NEG); Urine Ketones >=80 MG/DL (NEG); Urine Protein NEG (NEG-TRACE)
[2021-01-09 13:43] LABS: Appearance Urine CLOUDY; Color Urine YELLOW
[2021-01-09 13:52] LABS: Amorphous Sediment Urine 3+ /LPF; Mucus Urine 1+ /LPF; RBC Urine 0-2 /HPF (0); Squamous Epithelial Cell Urine 2+ /LPF; WBC Urine 0 /HPF (0-4)
--- NOTE | 2021-01-09 17:01 | ED.NAVMDI ---
HPI - Nausea/Vomiting/Diarrhea General Chief complaint: Nausea/Vomiting/Diarrhea Stated complaint: VOMITING HIGH RISK Time Seen by Provider: 01/09/21 13:50 Source: patient Mode of arrival: ambulatory History of Present Illness HPI Narrative: 20-year-old female at about 7 weeks gestation with a past medical history of GERD, migraines, presenting to the ED complaining of nausea and vomiting with epigastric abdominal pain and lower abdominal cramping x multiple weeks. States has been unable to tolerate p.o. x 2 days. Denies fever, chills, vaginal bleeding, vaginal discharge, dysuria, hematuria, diarrhea, constipation MD elicited complaint: nausea, vomiting and abdominal pain Related Data Previous Rx's Medication Instructions Recorded loperamide 2 mg PO Q6H PRN #10 tab 08/25/20 ondansetron 4 mg PO Q8H PRN #20 tab 08/29/20 acetaminophen [Tylenol Extra 500 mg PO Q6H PRN #14 tab 01/02/21 Strength] metoclopramide HCl [Reglan] 10 mg PO Q6H PRN #30 tab 01/02/21 oxycodone 5 mg PO BID PRN #10 tab 01/02/21 famotidine [Pepcid] 20 mg PO DAILY #10 tab 01/09/21 ondansetron HCl [Zofran] 4 mg PO Q8H PRN #10 tab 01/09/21 Allergies Allergy/AdvReac Type Severity Reaction Status Date / Time No Known Allergies Allergy Unverified 07/18/20 16:43 [No Known Allergies*] Review of Systems Review of Systems: Constitutional: No Fever, No Chills, No Malaise Cardiovascular: No Chest Pain, No SOB Respiratory: No Cough Gastrointestinal: + Nausea, + Vomiting, No Diarrhea, No Constipation, +Abdominal pain Genitourinary: No irregular bleeding, No Dysuria, No Hematuria, No Flank Pain Musculoskeletal: No joint pain, No Myalgias Skin: No Skin Lesions, No rash Yes all other systems are reviewed and are negative PMFSH Past Medical History Attestation statement: The following information was validated with the patient. Medical History Migraine No known health problems Social History Social History Alcohol intake: never Smoking Status: Never smoker Use of substances other than those prescribed or required for medical reasons: No Substance Use Type: Marijuana Advance Directives: No Advance Directives Information Provided: No Physical Exam Vital Signs: Vital Signs: Last Vital Signs Temp 98.1 F 01/09/21 12:42 Pulse 60 01/09/21 12:42 Resp 18 01/09/21 12:42 BP 138/84 01/09/21 12:42 Pulse Ox 100 01/09/21 12:42 Body Mass Index 24.5 Const: General: cooperative, healthy appearing, alert and awake Orientation/consciousness: patient oriented x3 Limitations: no limitations HENMT: Head: Yes normal to inspection Ears: hearing grossly normal bilaterally General nose exam: Normal external nose present Face and sinus: Yes normal facial exam Eyes: General: appearance normal, both eyes and all related structures EOM: EOMs intact bilaterally Neck: Neck: Yes normal visual inspection Resp: Effort & Inspection: normal respiratory effort Cardio: Rate: regular rate GI: Inspection: Yes normal to inspection Palpation (GI): Soft to palpation, Tenderness to palpation present (GI) in the epigastrum and suprapubicly, no guarding and not rigid : General: Yes no CVA tenderness OB/external & speculum: Deferred OB/external & speculum exam Back/Spine/Pelvis: Back: no CVA tenderness Skin: Rashes: no rashes Wounds: no wounds Neuro: General: patient oriented x3 Gait exam (Neuro): Normal gait present Extrem: General: Yes normal to inspection and Yes no pedal edema Course Course Course Narrative: -mild leukocytosis of 14.9 likely reactive from dry heaving/vomiting -beta quant 94,001 -UA with >= 80 ketones >> will give IVF and repeat US OB <= 14 weeks fetus IMPRESSION: A gestational sac is present. The visualized fetus has no heartbeat. >> OBGYN consulted --case discussed with Dr. Kaur, likely patient had a missed Has follow-up in the office tomorrow. Rh positive, does not require RhoGAM. Patient was able to tolerate p.o. food/water in the ED with nausea, additional IVF/antiemetics given. Worrisome signs and symptoms/very strict return precautions discussed. Patient and family at bedside verbalized understanding -2100--ED care transferred to [facility] pending repeat UA, and re-evaluation MDM - Nausea/Vomiting/Diarrhea MDM Narrative Medical decision making narrative: 20-year-old female at about 7 weeks gestation with a past medical history of GERD, migraines, presenting to the ED complaining of nausea and vomiting with epigastric abdominal pain and lower abdominal cramping x multiple weeks. States has been unable to tolerate p.o. x 2 days. On exam VSS, NAD, abdomen soft with epigastric and suprapubic tenderness to palpation, no rebound or guarding. Of Note patient was seen and treated in the ED on 01/02 for similar sx, US showing small subchorionic bleed & patient required multiple L of IVF. Concern for hyperemesis/dehydration vs threatened vs GERD. Lower concern for pancreatitis/cholecystitis/cholelithiasis. Rule out UTI Plan: Labs, UA, Ob ultrasound, IVF, symptomatic treatment, re-evaluate Differential Diagnosis Differential diagnosis: Likely gastroenteritis Medical Records Attestation: I reviewed the patient's medical records. Lab Data Attestation: I reviewed the patient's lab results. Result diagrams: 01/09/21 12:54 01/09/21 12:54 Labs: Lab Results 01/09/21 01/09/21 01/09/21 Range/Units 12:54 12:54 13:08 WBC 14.9 H (4.8-10.8) X10*3/uL RBC 4.12 L (4.20-5.50) X10*6/uL Hgb 12.2 (12.0-16.0) g/dl Hct 34.7 L (37-47) % MCV 84.2 (80-98) fL MCH 29.6 (27.0-33.0) pg MCHC 35.2 H (31.0-35.0) g/dl RDW 12.1 (11.0-16.0) % Plt Count 262 (160-400) X10*3/uL MPV 9.6 (9.4-12.3) fL Immature Gran % (Auto) 0.4 (0.0-0.4) % Neut % (Auto) 77.0 H (45-73) % Lymph % (Auto) 18.1 L (20-40) % [place] % (Auto) 4.4 (2-11) % Eos % (Auto) 0.0 (0-4) % Baso % (Auto) 0.1 (0-2) % Lymph # (Auto) 2.7 (1.2-4.9) X10*3/uL [place] # (Auto) 0.7 (0.1-1.2) X10*3/uL Eos # (Auto) 0.0 (0.0-0.4) X10*3/uL Baso # (Auto) 0.0 (0.0-0.2) X10*3/uL Abs Immat Gran (auto) 0.06 H (0.00-0.03) X10*3/uL Absolute Neuts (auto) 11.5 H (2.0-8.3) X10*3/uL Absolute Nucleated RBC 0.000 (0.0-0.012) X10*3/uL Nucleated RBC % (auto) 0.0 (0.0-0.2) /100WBC Sodium 137 (135-145) mmol/L Potassium 3.5 (3.3-5.1) mmol/L Chloride 100 (96-108) mmol/L Carbon Dioxide 27 (22-29) mmol/L Anion Gap 14 (12-20) BUN 8 L (9-16) mg/dL Creatinine 0.66 (0.5-1.4) mg/dL Estim Creat Clear Calc 111.2 Estimated GFR > 60 Random Glucose 110 (60-115) mg/dL Calcium 10.1 (8.4-10.2) mg/dL Total Bilirubin 0.7 (0.0-1.0) mg/dL AST 15 (5-31) U/L ALT 8 (0-31) U/L Alkaline Phosphatase 34 L (39-117) U/L Total Protein 7.6 (6.5-8.0) g/dL Albumin 4.5 (3.5-5.0) g/dL Lipase 14 (8-78) U/L Beta HCG, Quant 32396 mIU/mL Urine Color YELLOW Urine Appearance CLOUDY Urine pH 7.0 (5.0-8.0) Ur Specific [place] 1.020 (1.005-1.025) Urine Protein NEG (NEG-TRACE) MG/DL Urine Glucose (UA) NEG (NEG) MG/DL Urine Ketones >=80 (NEG) MG/DL Urine Blood TRACE (NEG) Urine Nitrite NEG (NEG) Ur Leukocyte Esterase NEG (NEG) Urine RBC 0-2 (0) /HPF Urine WBC 0 (0-4) /HPF Ur Squamous Epith Cells 2+ /LPF Amorphous Sediment 3+ /LPF Urine Bacteria NONE /LPF Urine Mucus 1+ /LPF Urine Opiates Screen (Not Detect) Ur Barbiturates Screen (Not Detect) Ur Phencyclidine Scrn (Not Detect) Ur Amphetamines Screen (Not Detect) U Benzodiazepines Scrn (Not Detect) Urine Cocaine Screen (Not Detect) U Marijuana (THC) Screen (Not Detect) Blood Type 01/09/21 01/09/21 Range/Units 13:08 19:53 WBC (4.8-10.8) X10*3/uL RBC (4.20-5.50) X10*6/uL Hgb (12.0-16.0) g/dl Hct (37-47) % MCV (80-98) fL MCH (27.0-33.0) pg MCHC (31.0-35.0) g/dl RDW (11.0-16.0) % Plt Count (160-400) X10*3/uL MPV (9.4-12.3) fL Immature Gran % (Auto) (0.0-0.4) % Neut % (Auto) (45-73) % Lymph % (Auto) (20-40) % [place] % (Auto) (2-11) % Eos % (Auto) (0-4) % Baso % (Auto) (0-2) % Lymph # (Auto) (1.2-4.9) X10*3/uL [place] # (Auto) (0.1-1.2) X10*3/uL Eos # (Auto) (0.0-0.4) X10*3/uL Baso # (Auto) (0.0-0.2) X10*3/uL Abs Immat Gran (auto) (0.00-0.03) X10*3/uL Absolute Neuts (auto) (2.0-8.3) X10*3/uL Absolute Nucleated RBC (0.0-0.012) X10*3/uL Nucleated RBC % (auto) (0.0-0.2) /100WBC Sodium (135-145) mmol/L Potassium (3.3-5.1) mmol/L Chloride (96-108) mmol/L Carbon Dioxide (22-29) mmol/L Anion Gap (12-20) BUN (9-16) mg/dL Creatinine (0.5-1.4) mg/dL Estim Creat Clear Calc Estimated GFR Random Glucose (60-115) mg/dL Calcium (8.4-10.2) mg/dL Total Bilirubin (0.0-1.0) mg/dL AST (5-31) U/L ALT (0-31) U/L Alkaline Phosphatase (39-117) U/L Total Protein (6.5-8.0) g/dL Albumin (3.5-5.0) g/dL Lipase (8-78) U/L Beta HCG, Quant mIU/mL Urine Color Urine Appearance Urine pH (5.0-8.0) Ur Specific [place] (1.005-1.025) Urine Protein (NEG-TRACE) MG/DL Urine Glucose (UA) (NEG) MG/DL Urine Ketones (NEG) MG/DL Urine Blood (NEG) Urine Nitrite (NEG) Ur Leukocyte Esterase (NEG) Urine RBC (0) /HPF Urine WBC (0-4) /HPF Ur Squamous Epith Cells /LPF Amorphous Sediment /LPF Urine Bacteria /LPF Urine Mucus /LPF Urine Opiates Screen Not Detected (Not Detect) Ur Barbiturates Screen Not Detected (Not Detect) Ur Phencyclidine Scrn Not Detected (Not Detect) Ur Amphetamines Screen Not Detected (Not Detect) U Benzodiazepines Scrn Not Detected (Not Detect) Urine Cocaine Screen Not Detected (Not Detect) U Marijuana (THC) Screen POSITIVE H (Not Detect) Blood Type A Positive Discharge Plan Discharge Clinical Impression: Missed Instructions: Miscarriage (ED) Additional Instructions: You are dehydrated. Your ultrasound did not show any evidence of a heartbeat today. It is suspected you had a miscarriage. Will be discussed further tomorrow at your OBGYN appointment It is crucial you follow-up with her OBGYN appointment tomorrow. If you develop constant worsening abdominal pain, any vaginal bleeding, discharge, fever, or persistent nausea/vomiting, or unable to eat or drink return to the ED immediately It is recommended that you have a repeat ultrasound and 11-14 days to confirm these findings Pepcid helps with acid reflux symptoms, Zofran as an antinausea medication, take as needed. It is important her staying hydrated at home Prescriptions: New ondansetron HCl [Zofran] 4 mg tablet 4 mg PO Q8H PRN (Reason: nausea and vomiting) Qty: 10 RF: 0 famotidine [Pepcid] 20 mg tablet 20 mg PO DAILY Qty: 10 RF: 0 No Action loperamide 2 mg tablet 2 mg PO Q6H PRN (Reason: loose stool) Qty: 10 RF: 0 ondansetron 4 mg tablet,disintegrating 4 mg PO Q8H PRN (Reason: nausea and vomiting) Qty: 20 RF: 0 metoclopramide HCl [Reglan] 10 mg tablet 10 mg PO Q6H PRN (Reason: nausea and vomiting) Qty: 30 RF: 0 acetaminophen [Tylenol Extra Strength] 500 mg tablet 500 mg PO Q6H PRN (Reason: pain) Qty: 14 RF: 0 oxycodone 5 mg tablet 5 mg PO BID PRN (Reason: pain) Qty: 10 RF: 0 Referrals: Wallace Kaur MD [Physician] - 1 day (As scheduled)
[2021-01-09 18:06] LABS: Amphetamine Screen Urine Not Detected (Not Detect); Barbiturates, Urine Not Detected (Not Detect); Benzodiazepines Screen Urine Not Detected (Not Detect); Cannabinoid Screen Urine POSITIVE (Not Detect); Cocaine Screen Urine Not Detected (Not Detect); Opiate Screen Urine Not Detected (Not Detect); Phencyclidine Screen Urine Not Detected (Not Detect)
[2021-01-09] MEDS: Metoclopramide HCl 10 MG/2 ML VIAL IVPUSH (18:16)
[2021-01-09] MEDS: diphenhydrAMINE HCL 50 MG/ML VIAL 12.5 MG IVPUSH (18:16)
[2021-01-09] MEDS: 0.9 % Sodium Chloride 1,000 ML 999 ML IVCONT ×2 (18:16→21:26)
[2021-01-09] MEDS: Pyridoxine HCl (Vitamin B6) 50 MG TABLET 25 MG PO (18:16)
--- NOTE | 2021-01-09 18:35 | PM.GYNCN ---
COMMISSARY REPRESENTATIVE - CN: HPI Data of Consult Consult date: 01/09/21 Primary Care Provider: None Physician Consult Narrative Narrative: I was consulted by Betty Rodríguez regarding Lidia Farias is a 20 year old female who presented emergency room at 8 weeks of gestation with nausea and vomiting epigastric pain. Workup the done was the following white count of 14.3 H and H 12.2/34.9 chemistry within normal including AST/AST, ultrasound showed a CRL measuring 16.6 mm and a pole with no heart rate. Ultrasound done on 01/02 showed a CRL measuring 7.6 mm positive heart rate with small subchorionic bleed. The patient does not have any vaginal bleeding cc:: CC: BUILDING SERVICE WORKER - Review of Systems Review of Systems ROS Unobtainable: All systems reviewed & are unremarkable except as noted in HPI and below Cardiovascular: Denies Palpatations, Loss of consciousness and Chest pain Respiratory: Denies Cough, Wheezing and Shortness of breath Musculoskeletal: Denies Low back pain Gastrointestinal: Denies Heartburn, Constipation, Diarrhea, Nausea and Vomiting Genitourinary: Denies Pain with urination, Burning with urination and Urinary frequency Neurological: Denies Migranes Psychological: Denies Depression OB PMFSH Past Medical History Medical History Migraine No known health problems Social History Social History Alcohol intake: never Smoking Status: Never smoker Substance Use Type: Marijuana Advance Directives: No Advance Directives Information Provided: No Meds Allergies Allergy/AdvReac Type Severity Reaction Status Date / Time No Known Allergies Allergy Unverified 07/18/20 16:43 [No Known Allergies*] COMMISSARY REPRESENTATIVE Physical Exam Vitals Vital signs: Temp Pulse Resp BP Pulse Ox 98.1 F 60 18 138/84 100 01/09/21 12:42 01/09/21 12:42 01/09/21 12:42 01/09/21 12:42 01/09/21 12:42 Body Mass Index 24.5 Constitutional General Appearance: Healthy appearing, Well-nourished and Well-developed Psychiatric Mood and Affect: active and alert, normal mood and normal affect Skin Appearance: No rashes and No lesions Lungs Respiratory Effort: No intercostal retractions Auscultation: Clear to auscultation Cardiovascular Auscultation: RRR Abdomen Auscultation/Inspection/Palpation: Normal bowel sounds, Soft, Non-distended and No tenderness COMMISSARY REPRESENTATIVE - Results Labs CBC & Chem 7: 01/09/21 12:54 01/09/21 12:54 Labs: Short CBC 01/09/21 Range/Units 12:54 WBC 14.9 H (4.8-10.8) X10*3/uL Hgb 12.2 (12.0-16.0) g/dl Hct 34.7 L (37-47) % Plt Count 262 (160-400) X10*3/uL BMP 01/09/21 12:54 Sodium 137 Potassium 3.5 Chloride 100 Carbon Dioxide 27 BUN 8 L Creatinine 0.66 Calcium 10.1 Liver Function 01/09/21 Range/Units 12:54 Total Bilirubin 0.7 (0.0-1.0) mg/dL AST 15 (5-31) U/L ALT 8 (0-31) U/L Alkaline Phosphatase 34 L (39-117) U/L Albumin 4.5 (3.5-5.0) g/dL Urine 01/09/21 Range/Units 13:08 Urine Color YELLOW Urine Appearance CLOUDY Urine pH 7.0 (5.0-8.0) Ur Specific [place] 1.020 (1.005-1.025) Urine Protein NEG (NEG-TRACE) MG/DL Urine Glucose (UA) NEG (NEG) MG/DL Assessment and Plan (1) Nausea and vomiting during : Status: Acute Recommended IV hydration, antiemetic and Pepcid IV. P.o. diet to be challenged was tolerated repeat urine Q void till ketones clear then discharged on p.o. antiemetic and antacid and follow-up in the OBGYN office tomorrow (2) Missed with demise before 20 completed weeks of gestation: Status: Acute Discussed the criteria for demise by ultrasound CRL of 7 mm and above with no heart rate. Ultrasound done on 01/02 CRL measured 7.6 mm and heart rate was positive today's ultrasound CRL is 16.6 cm with no heart rate. Blood type to be sent, SAB warnings to be given to patient follow-up in the office tomorrow for counseling regarding options of treatment, in addition will discuss with the patient the possibility of missing heartbeat by ultrasound and possibly repeat ultrasound to confirm no heart rate, if confirmed will discussed different options of treatment.
[2021-01-09] MEDS: Famotidine/PF 20 MG/2 ML VIAL IVPUSH (19:01)
[2021-01-09] MEDS: ondansetron HCL 4 MG/2 ML VIAL IVPUSH (21:27)
[2021-01-09 21:32] VITALS: BP 151/84; PULSE 56; RESP 18; TEMP 37.7; O2SAT 100
--- NOTE | 2021-01-09 21:34 | PC.NURSE ---
pt still having n/v. IV fluid and medicated per mar.
--- NOTE | 2021-01-09 22:25 | PC.NURSE ---
Second attempt for po challenge. provider in to assess pt.
== END 2021-01-09 23:11 | disposition home or self-care (01) ==
PROVIDERS: Physician Assistant; Emergency Provider Internal Medicine
DX: O02.1 Missed abortion (principal); O21.9 Vomiting of pregnancy, unspecified; O99.281 Endocrine, nutritional and metabolic diseases complicating pregnancy, first trimester; E86.0 Dehydration; O99.321 Drug use complicating pregnancy, first trimester; F12.90 Cannabis use, unspecified, uncomplicated; Z3A.01 Less than 8 weeks gestation of pregnancy
CPT/HCPCS: 36415; 76801; 80053; 80307; 81001; 83690; 84702; 85025; 86900; 86901; 96361; 96365; 96374; 96375; 99283; 99284; J1200; J2405; J2765

== ENCOUNTER 2021-01-16 08:19 | Outpatient (REF) | payer OTHER, SELFPAY ==
[2021-01-17 15:14] LABS: CT PCR NOT DETECTED (Not Detect.)
[2021-01-17 15:15] LABS: NG PCR NOT DETECTED (Not Detect.)
== END 2021-01-16 08:20 | disposition home or self-care (01) ==
LOC: HO.LAB 08:19
PROVIDERS: Visit Provider Obstetrics & Gynecology
DX: O02.1 Missed abortion (principal)
CPT/HCPCS: 87491; 87591

== ENCOUNTER 2021-01-16 09:16 | Outpatient (REF) | payer OTHER, SELFPAY ==
--- NOTE | ~2021-01-16 | US_ITS ---
EXAMINATION: US OBSTETRICAL ULTRASOUND CLINICAL INFORMATION: Missed . No heart activity demonstrated on prior ultrasound with crown-rump length 1.66 cm. Follow-up. COMPARISON: Obstetrical ultrasound 01/09/2021, 01/02/2021. LMP: 11/11/2020. Gestational age by maternal dates is 9 weeks 3 days. Estimated date of delivery by maternal dates is 08/18/2021. TECHNIQUE: Ultrasound of the maternal pelvis is performed using transabdominal transducer. M-mode Doppler is also performed. FINDINGS: There is single intrauterine gestational sac with visible embryo. No subchorionic hemorrhage or hematoma. No visible embryo/ motion. HR: No cardiac activity demonstrated. CRL (crown rump length): 1.5 cm (8 weeks 0 days +/- 4 days). No growth from prior ultrasound 01/09/2021. Prior CRL 01/09/2021: 1.66 cm (8 weeks 1 day +/- 4 days). MATERNAL ADNEXA: The right maternal ovary measures 4.0 x 2.4 x 2.4 cm. Probable small hyperechoic corpus luteum 1.6 x 0.7 x 1.2 cm. The left maternal ovary measures 3.7 x 1.6 x 2.2 cm. There is no significant maternal adnexal mass. No maternal pelvic ascites. US/US OB <= 14 weeks fetus IMPRESSION: 1. Single intrauterine gestation, crown-rump length 1.5 cm (8 weeks 0 days size). No growth from prior ultrasound 01/09/2021 (CRL 1.66 cm). 2. No motion, no visible cardiac activity. 3. Findings consistent with clinical history missed .
== END 2021-01-16 09:17 | disposition home or self-care (01) ==
LOC: HO.US 09:16
PROVIDERS: Visit Provider Obstetrics & Gynecology
DX: O02.1 Missed abortion (principal)
CPT/HCPCS: 76801; 99212

== ENCOUNTER 2021-01-20 12:49 | Emergency (ER) | payer OTHER, SELFPAY ==
[2021-01-20 12:58] VITALS: BP 131/67; PULSE 66; RESP 18; TEMP 37.1; O2SAT 100; BMI 21.4
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
[2021-01-20 14:38] LABS: MANUAL DIFF FLAG NO
[2021-01-20 14:40] LABS: Basophils Percent Auto 0.2 % (0-2); Eosinophils Absolute Auto 0.1 X10*3/uL (0.0-0.4); Eosinophils Percent Auto 0.4 % (0-4); Hematocrit 33.5 % (37-47); Hemoglobin 11.6 g/dl (12.0-16.0); Imm Gran Abs Auto 0.03 X10*3/uL (0.00-0.03); Imm Gran Pct Auto 0.2 % (0.0-0.4); Lymphocytes Absolute Auto 2.8 X10*3/uL (1.2-4.9); Lymphocytes Percent Auto 22.1 % (20-40); Mean Corpuscular HGB Conc 34.6 g/dl (31.0-35.0); Mean Corpuscular Hemoglobin 29.8 pg (27.0-33.0); Mean Corpuscular Volume 86.1 fL (80-98); Mean Platelet Volume 9.5 fL (9.4-12.3); Monocytes Absolute Auto 0.6 X10*3/uL (0.1-1.2); Monocytes Percent Auto 4.5 % (2-11); Neutrophils Absolute Auto 9.3 X10*3/uL (2.0-8.3); Neutrophils Percent Auto 72.6 % (45-73); Platelet Count 214 X10*3/uL (160-400); Red Blood Count 3.89 X10*6/uL (4.20-5.50); Red Cell Distribution Width 13.1 % (11.0-16.0); White Blood Count 12.8 X10*3/uL (4.8-10.8)
--- NOTE | 2021-01-20 14:52 | PC.NURSE ---
pt refusing cytogenics, pt states she is speaking with her mother to determine if she wishes to have bury remains and a home.
[2021-01-20 15:04] LABS: Alanine Aminotransferase 12 U/L (0-31); Alkaline Phosphatase 29 U/L (39-117); Anion Gap 14 (12-20); Aspartate Amino Transferase 15 U/L (5-31); Bilirubin Direct 0.2 mg/dL (0.0-0.5); Bilirubin Total 0.4 mg/dL (0.0-1.0); Blood Urea Nitrogen 3 mg/dL (9-16); Calcium 9.5 mg/dL (8.4-10.2); Carbon Dioxide 23 mmol/L (22-29); Chloride 101 mmol/L (96-108); Creatinine Clr Calc Pharmacy 132.8; Estimated Glomerular Filt Rate > 60; Glucose Random 88 mg/dL (60-115); Potassium 3.7 mmol/L (3.3-5.1); Sodium 134 mmol/L (135-145); Total Protein 6.6 g/dL (6.5-8.0)
--- NOTE | 2021-01-20 15:32 | PC.NURSE ---
THIS PCT SET UP AND ASSIST LABOR GANG SUPERVISOR QI WITH PATIENT PELVIC EXAM .
[2021-01-20 15:33] VITALS: BP 133/66; PULSE 69; RESP 16; TEMP 37.1; O2SAT 99
--- NOTE | 2021-01-20 15:40 | PC.NURSE ---
internal exam performed by provider with tech assist
--- NOTE | 2021-01-20 15:59 | PC.NURSE ---
poc brought to lab with paperwork
== END 2021-01-20 16:17 | disposition home or self-care (01) ==
PROVIDERS: Nurse Practitioner Family; Emergency Provider Emergency Medicine; PCP Internal Medicine
DX: O36.4XX0 Maternal care for intrauterine death, not applicable or unspecified (principal); O26.891 Other specified pregnancy related conditions, first trimester; R10.30 Lower abdominal pain, unspecified; Z3A.08 8 weeks gestation of pregnancy
CPT/HCPCS: 36415; 80048; 80076; 85025; 88305; 99284

== ENCOUNTER 2021-01-30 11:23 | Outpatient (REF) | payer OTHER, SELFPAY ==
[2021-01-30 13:52] LABS: HCG Quantitative 243 mIU/mL
== END 2021-01-30 11:24 | disposition home or self-care (01) ==
LOC: HO.LAB 11:23
PROVIDERS: PCP Internal Medicine; Visit Provider Obstetrics & Gynecology
DX: O02.1 Missed abortion (principal)
CPT/HCPCS: 36415; 84702; 99212

== ENCOUNTER 2021-08-18 23:35 | Emergency (ER) | payer OTHER, SELFPAY ==
[2021-08-18 23:48] VITALS: BP 123/84; PULSE 103; RESP 18; TEMP 36.9; O2SAT 99; BMI 22.1
[2021-08-18 23:55] VITALS: BP 137/86; PULSE 106; O2SAT 99
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
[2021-08-19 00:30] LABS: Appearance Urine CLEAR; Color Urine YELLOW; Glucose Urine UA NEG (NEG); Leukocyte Esterase Urine NEG (NEG); Nitrite Urine NEG (NEG); Specific Gravity - Urine 1.025 (1.005-1.025); UACC Culture Trigger NO; Urine Blood NEG (NEG); Urine Ketones 5 MG/DL (NEG); Urine Protein 1+ MG/DL (NEG-TRACE)
[2021-08-19 00:31] LABS: UPreg QC Valid YES; Urine Pregnancy POSITIVE (NEGATIVE)
[2021-08-19 00:41] LABS: Amphetamine Screen Urine Not Detected (Not Detect); Barbiturates, Urine Not Detected (Not Detect); Benzodiazepines Screen Urine Not Detected (Not Detect); Cannabinoid Screen Urine POSITIVE (Not Detect); Cocaine Screen Urine Not Detected (Not Detect); Fentanyl, urine Not Detected (Not Detect); Opiate Screen Urine Not Detected (Not Detect); Phencyclidine Screen Urine Not Detected (Not Detect)
--- NOTE | 2021-08-19 00:45 | PC.NURSE ---
EDT to bedside for vitals and blood draw. PT noted to be tearful and on the phone; this RN approached to inquire and pt reported she just received news she was not expecting; pt . Pt unsure as to when LMP was and HCG quant to be drawn. pt discussed with care team and BRAND INSPECTOR; plan is for full crisis protocol to be followed at this time. pt to be changed over and belongings secured once blood work obtained education to be provided. Care team spoke with mom and dad prior to them leaving and plan is for section 12 and evaluation as family concerned. reports this month is when patient was due to have child from previous that ended in miscarriage December 2020.
[2021-08-19 00:48] VITALS: BP 116/70; PULSE 93; RESP 15; TEMP 36.8; O2SAT 99
[2021-08-19 00:55] LABS: RBC Urine 0-2 /HPF (0); Squamous Epithelial Cell Urine 3+ /LPF
[2021-08-19 00:56] LABS: Bacteria Urine TRACE /LPF; Mucus Urine 4+ /LPF
[2021-08-19 01:27] LABS: Ethanol 101 mg/dL
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
[2021-08-19 01:45] LABS: HCG Quantitative 2304 mIU/mL
--- NOTE | 2021-08-19 01:50 | PC.NURSE ---
PT changed over and items secured with help from ED security. Pt aware of and agreeable to plan for Care Team or BHN evaluation prior to discharge home. Pt with active section 12 on file. Pt remains calm and cooperative without distress noted at this time, RN will continue to monitor.
[2021-08-19 02:33] VITALS: BP 105/49; PULSE 72; RESP 16; TEMP 36.2; O2SAT 99
[2021-08-19] MEDS: Ondansetron ODT 4 MG TAB.RAPDIS TRANSLINGU (03:22)
--- NOTE | 2021-08-19 03:26 | PC.NURSE ---
pt is tearful and states she is stressed. pt also reports of having nausea and medicated per Mar.
[2021-08-19] MEDS: diphenhydrAMINE HCL 50 MG/ML VIAL IM (04:04)
--- NOTE | 2021-08-19 04:27 | PC.NURSE ---
medicated per Dec. pt given a cold cloth. Pt assisted to the bathroom. pt continues to have nausea, provider is aware. Report given to Ben Cavazos.
[2021-08-19 08:38] VITALS: BP 117/64; PULSE 65; RESP 14; TEMP 37.1; O2SAT 99
[2021-08-19] MEDS: Metoclopramide HCl 10 MG/2 ML VIAL IM (09:13)
--- NOTE | 2021-08-19 09:42 | PC.NURSE ---
Pt denying SI to this RN and denies prior attempts. States abd pain from stress and dry heaving at times without acute vomiting noted. Medicated as charted. Referred to BHN at 0800, unk if completed on prior shift. Ate small amount of breakfast. Pt observer at bedside for safety
--- NOTE | 2021-08-19 10:19 | PC.NURSE ---
CARE team at bedside
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
== END 2021-08-19 11:42 | disposition home or self-care (01) ==
PROVIDERS: Nurse Practitioner Family; Emergency Provider Student in an Organized Health Care Education/Training Program
DX: F33.1 Major depressive disorder, recurrent, moderate (principal); F10.10 Alcohol abuse, uncomplicated
CPT/HCPCS: 36415; 80307; 81001; 81025; 82077; 84702; 96372; 99285; J1200; J2765

== ENCOUNTER 2021-08-22 08:11 | Emergency (ER) | payer OTHER, SELFPAY ==
--- NOTE | ~2021-08-22 | US_ITS ---
EXAMINATION: US OBSTETRICAL ULTRASOUND CLINICAL INFORMATION: Abdominal cramping. . Question ectopic. COMPARISON: January 16, 2021. LMP: July 14, 2021. Gestational age by maternal dates is 5 weeks 4 days. Estimated date of delivery by maternal dates is April 20 2022. TECHNIQUE: Ultrasound of the maternal pelvis is performed using transabdominal transducer. M-mode Doppler is also performed. FINDINGS: There is a single intrauterine gestational sac with visible yolk sac. There is no significant subchorionic hemorrhage or hematoma. Gestational sac size: 0.78 cm diameter. This corresponds to ultrasound age of 5 weeks 3 days RICHARD (estimated date of delivery): April 20, 2022 +/- 4 days. MATERNAL ADNEXA: The right maternal ovary measures 3.4 x 2.0 x 2.3 cm. No suspicious adnexal findings. The left maternal ovary measures 3.2 x 1.6 x 3.9 cm. No suspicious adnexal findings. No maternal pelvic ascites. US/US OB <= 14 weeks fetus IMPRESSION: 1. Single intrauterine gestation with ultrasound gestational age of 5 weeks 3 days +/- 4 days. 2. Estimated date of delivery is April 20, 2022 +/- 4 days. 3. No maternal adnexal mass or pelvic ascites. No evidence of ectopic .
[2021-08-22 08:19] VITALS: BP 144/81; PULSE 72; RESP 18; TEMP 36.4; O2SAT 100; BMI 21.6
[2021-08-22] MEDS: Lactated Ringers 1,000 ML 999 ML IV ×2 (08:52→09:42)
[2021-08-22 09:00] LABS: MANUAL DIFF FLAG NO
[2021-08-22 09:07] LABS: Appearance Urine HAZY; Color Urine YELLOW; Glucose Urine UA NEG (NEG); Leukocyte Esterase Urine NEG (NEG); Nitrite Urine NEG (NEG); Specific Gravity - Urine >= 1.030 (1.005-1.025); UACC Culture Trigger NO; Urine Blood NEG (NEG); Urine Ketones >=80 MG/DL (NEG); Urine Protein 2+ MG/DL (NEG-TRACE)
[2021-08-22 09:10] LABS: UPreg QC Valid YES; Urine Pregnancy POSITIVE (NEGATIVE)
[2021-08-22 09:11] LABS: INTERNATIONAL NORM RATIO 1.1 (0.9-1.1); Prothrombin Time 12.6 SEC (9.9-13.0)
[2021-08-22 09:14] LABS: Partial Thromboplastin Time 25.6 SEC (24.1-38.0)
[2021-08-22] MEDS: ondansetron HCL 4 MG/2 ML VIAL IVPUSH ×2 (09:16→09:52)
[2021-08-22] MEDS: Famotidine/PF 20 MG/2 ML VIAL IVPUSH (09:16)
[2021-08-22 09:18] LABS: Bacteria Urine TRACE /LPF; RBC Urine 0 /HPF (0); Squamous Epithelial Cell Urine 1+ /LPF; WBC Urine 0 /HPF (0-4)
[2021-08-22 09:19] LABS: Mucus Urine 1+ /LPF
[2021-08-22 09:24] LABS: Basophils Percent Auto 0.1 % (0-2); Eosinophils Percent Auto 0.2 % (0-4); Hematocrit 33.6 % (37-47); Hemoglobin 12.2 g/dl (12.0-16.0); Imm Gran Abs Auto 0.07 X10*3/uL (0.00-0.03); Imm Gran Pct Auto 0.5 % (0.0-0.4); Lymphocytes Absolute Auto 2.6 X10*3/uL (1.2-4.9); Lymphocytes Percent Auto 19.1 % (20-40); Mean Corpuscular HGB Conc 36.3 g/dl (31.0-35.0); Mean Corpuscular Hemoglobin 30.6 pg (27.0-33.0); Mean Corpuscular Volume 84.2 fL (80-98); Mean Platelet Volume 9.9 fL (9.4-12.3); Monocytes Absolute Auto 0.7 X10*3/uL (0.1-1.2); Neutrophils Absolute Auto 10.3 X10*3/uL (2.0-8.3); Neutrophils Percent Auto 75.1 % (45-73); Platelet Count 257 X10*3/uL (160-400); Red Blood Count 3.99 X10*6/uL (4.20-5.50); Red Cell Distribution Width 12.1 % (11.0-16.0); White Blood Count 13.8 X10*3/uL (4.8-10.8)
[2021-08-22 09:26] LABS: Alanine Aminotransferase 25 U/L (0-31); Albumin Level 4.7 g/dL (3.5-5.0); Alkaline Phosphatase 35 U/L (39-117); Anion Gap 16 (12-20); Aspartate Amino Transferase 27 U/L (5-31); Bilirubin Direct 0.5 mg/dL (0.0-0.5); Blood Urea Nitrogen 13 mg/dL (9-16); Calcium 10.4 mg/dL (8.4-10.2); Carbon Dioxide 23 mmol/L (22-29); Chloride 101 mmol/L (96-108); Creatinine Clr Calc Pharmacy 97.9; Estimated Glomerular Filt Rate > 60; Glucose Random 99 mg/dL (60-115); Lipase 10 U/L (8-78); Potassium 3.3 mmol/L (3.3-5.1); Sodium 137 mmol/L (135-145); Total Protein 7.8 g/dL (6.5-8.0)
--- NOTE | 2021-08-22 09:27 | ED.GENADULT ---
HPI - General Adult General Chief complaint: Nausea/Vomiting/Diarrhea Stated complaint: vomiting - Time Seen by Provider: 08/22/21 09:20 Source: patient Mode of arrival: ambulatory Limitations: no limitations History of Present Illness HPI narrative: [age] female presents to ED for nausea, vomiting, and inability to keep anything down. Patient states she just found out she was and last menstruation was July. Patient states yesterday she was in [facility] and woman and was treated for dehydration and discharged. Patient denies any chest pain, shortness of breath weakness, dizziness, or abdominal pain. Patient discharged with Zofran. This is patient's 2nd . Patient 1st was a miscarriage. Patient states mild white discharge. Related Data Previous Rx's Medication Instructions Recorded loperamide 2 mg tablet 2 mg PO Q6H PRN #10 tab 08/25/20 ondansetron 4 mg disintegrating 4 mg PO Q8H PRN #20 tab 08/29/20 tablet acetaminophen 500 mg tablet 500 mg PO Q6H PRN #14 tab 01/02/21 (Tylenol Extra Strength) metoclopramide HCl 10 mg tablet 10 mg PO Q6H PRN #30 tab 01/02/21 (Reglan) oxycodone 5 mg tablet 5 mg PO BID PRN #10 tab 01/02/21 famotidine 20 mg tablet (Pepcid) 20 mg PO DAILY #10 tab 01/09/21 ondansetron HCl 4 mg tablet 4 mg PO Q8H PRN #10 tab 01/09/21 (Zofran) misoprostol 200 mcg tablet 800 mcg VAGINAL Q3H 3 Days #96 tab 01/16/21 ondansetron 4 mg disintegrating 4 mg PO Q8H PRN #20 tab 08/19/21 tablet pyridoxine (vitamin B6) 25 mg 25 mg PO TID PRN 5 Days #15 tab 08/22/21 tablet Allergies Allergy/AdvReac Type Severity Reaction Status Date / Time No Known Allergies Allergy Verified 08/18/21 23:48 [No Known Allergies*] Review of Systems Review of Systems: Yes all other systems are reviewed and are negative Constitutional: Constitutional: Reports as per HPI and Reports no additional constitutional complaints Eyes: Eyes: Reports as per HPI and Reports no additional eye complaints ENT: Reports system reviewed and no additional complaints, except as documented and Reports as per HPI Cardiovascular: Cardiovascular: Reports as per HPI and Reports no additional cardiovascular complaints Respiratory: Respiratory: Reports as per HPI and Reports no additional respiratory complaints Gastrointestinal: Gastrointestinal: Reports abdominal pain (Very mild), Reports nausea and Reports vomiting Musculoskeletal: Musculoskeletal: Reports no additional musculoskeletal complaints and Reports as per HPI Integumentary/Breasts: Skin/Breast: Reports system reviewed and no additional complaints, except as docu and Reports as per HPI Neurologic: Reports system reviewed and no additional complaints, except as documented and Reports as per HPI Psychiatric: Psychiatric: Reports no additional psychiatric complaints and Reports as per HPI [facility] Past Medical History Medical History Migraine No known health problems Social History Social History Alcohol intake: current Alcohol intake frequency: holidays/special occasions only Patient Tobacco Use Status: Never used Tobacco Use of substances other than those prescribed or required for medical reasons: No Substance Use Type: Marijuana Advance Directives: No Patient : Yes Physical Exam Vital Signs: Vital Signs: Last Vital Signs Temp 98.2 F 08/22/21 13:31 Pulse 71 08/22/21 13:31 Resp 18 08/22/21 13:31 BP 108/70 08/22/21 13:31 Pulse Ox 99 08/22/21 13:31 Body Mass Index 21.6 Const: General: cooperative, healthy appearing, comfortable, no acute distress, well developed, alert, awake and Physically active Orientation/consciousness: patient oriented x3 HENMT: Head: Yes normal to inspection, Yes No palpable skull fracture present, Yes normocephalic, Yes atraumatic and No abrasion Eyes: General: appearance normal, both eyes and all related structures Neck: Neck: Yes normal visual inspection, Yes full ROM, Yes no lymphadenopathy, Yes no meningeal signs, Yes trachea midline, Yes supple and No tender Chest: Chest palpation & inspection: normal inspection of the chest and normal palpation of entire chest wall Resp: Effort & Inspection: normal respiratory effort and able to speak in complete sentences Cardio: Jugular venous distension: no JVD Heart sounds: S1 normal heart sound present and S2 normal heart sound present GI: Inspection: Yes normal to inspection and No abdominal wall ecchymosis Palpation (GI): Soft to palpation, not firm, Tenderness to palpation present (GI) (mild) in the LLQ and in the RLQ, no guarding and not rigid : General: No CVA tenderness and Yes no CVA tenderness External Female Exam: normal external appearance Speculum Exam - Vagina: abnormal vaginal discharge white Speculum Exam - Cervix: normal appearance of the cervix, normal palpation and Cervical os closed Bimanual exam- vagina & uterus: normal palpation Back/Spine/Pelvis: Back: no CVA tenderness, No CVA tenderness and No back tenderness Skin: General skin exam: no rashes or lesions noted and elasticity normal Neuro: General: patient oriented x3, gait normal, no meningeal signs and CN's II-XI intact bilaterally Cranial nerves: Yes CN's II-XII intact bilaterally Extrem: General: Yes normal to inspection and Yes full ROM Psych: Appearance: grossly normal, well kempt and not disheveled Course Course Course Narrative: Patient will be treated as hyperemesis and be given lactated Ringer's and Zofran/Pepcid. Beta-hCG is high will send for ultrasound to rule out any abnormal ultrasound result miscarriage. Reevaluation(s) Reevaluation #1: Patient labs negative for SCOTTY. Negative for any electrolyte abnormality. CBC normal. HCG over 6000 was sent for ultrasound to rule out ectopic. Pelvic exam negative any vaginal bleeding. Cervical os closed. Whitish clear discharge. BV, trich, and CT and sent. Waiting for ultrasound results. Reevaluation #2: Patient passed p.o. challenge. Ultrasound negative for ectopic . Ultrasound shows IUP and 5 weeks. Patient will be discharged vitamin B6. Patient informed Dr. Kaur for OBGYN. Patient is safe for discharge Time: 14:04 Medical Decision Making [facility] Narrative Medical decision making narrative: Hyperemesis Lab Data Result diagrams: 08/22/21 08:45 08/22/21 08:45 Labs: Lab Results 08/22/21 08/22/21 08/22/21 Range/Units 08:45 08:45 08:45 WBC 13.8 H (4.8-10.8) X10*3/uL RBC 3.99 L (4.20-5.50) X10*6/uL Hgb 12.2 (12.0-16.0) g/dl Hct 33.6 L (37-47) % MCV 84.2 (80-98) fL MCH 30.6 (27.0-33.0) pg MCHC 36.3 H (31.0-35.0) g/dl RDW 12.1 (11.0-16.0) % Plt Count 257 (160-400) X10*3/uL MPV 9.9 (9.4-12.3) fL Immature Gran % (Auto) 0.5 H (0.0-0.4) % Neut % (Auto) 75.1 H (45-73) % Lymph % (Auto) 19.1 L (20-40) % [place] % (Auto) 5.0 (2-11) % Eos % (Auto) 0.2 (0-4) % Baso % (Auto) 0.1 (0-2) % Lymph # (Auto) 2.6 (1.2-4.9) X10*3/uL [place] # (Auto) 0.7 (0.1-1.2) X10*3/uL Eos # (Auto) 0.0 (0.0-0.4) X10*3/uL Baso # (Auto) 0.0 (0.0-0.2) X10*3/uL Abs Immat Gran (auto) 0.07 H (0.00-0.03) X10*3/uL Absolute Neuts (auto) 10.3 H (2.0-8.3) X10*3/uL Absolute Nucleated RBC 0.000 (0.0-0.012) X10*3/uL Nucleated RBC % (auto) 0.0 (0.0-0.2) /100WBC PT 12.6 (9.9-13.0) SEC INR 1.1 (0.9-1.1) APTT 25.6 (24.1-38.0) SEC Sodium 137 (135-145) mmol/L Potassium 3.3 (3.3-5.1) mmol/L Chloride 101 (96-108) mmol/L Carbon Dioxide 23 (22-29) mmol/L Anion Gap 16 (12-20) BUN 13 D (9-16) mg/dL Creatinine 0.68 (0.5-1.4) mg/dL Estim Creat Clear Calc 97.9 Estimated GFR > 60 Random Glucose 99 (60-115) mg/dL Calcium 10.4 H D (8.4-10.2) mg/dL Total Bilirubin 1.0 (0.0-1.0) mg/dL Direct Bilirubin 0.5 (0.0-0.5) mg/dL AST 27 D (5-31) U/L ALT 25 (0-31) U/L Alkaline Phosphatase 35 L D (39-117) U/L Total Protein 7.8 (6.5-8.0) g/dL Albumin 4.7 (3.5-5.0) g/dL Lipase 10 (8-78) U/L Beta HCG, Quant 6465 mIU/mL Urine Color Urine Appearance Urine pH (5.0-8.0) Ur Specific [place] (1.005-1.025) Urine Protein (NEG-TRACE) MG/DL Urine Glucose (UA) (NEG) MG/DL Urine Ketones (NEG) MG/DL Urine Blood (NEG) Urine Nitrite (NEG) Ur Leukocyte Esterase (NEG) Urine RBC (0) /HPF Urine WBC (0-4) /HPF Ur Squamous Epith Cells /LPF Urine Bacteria /LPF Urine Mucus /LPF Urine Test (NEGATIVE) Chlam trachomat DNA PCR (Not Detect.) N.gonorrhoeae DNA (PCR) (Not Detect.) Blood Type 08/22/21 08/22/21 08/22/21 Range/Units 08:45 08:45 08:45 WBC (4.8-10.8) X10*3/uL RBC (4.20-5.50) X10*6/uL Hgb (12.0-16.0) g/dl Hct (37-47) % MCV (80-98) fL MCH (27.0-33.0) pg MCHC (31.0-35.0) g/dl RDW (11.0-16.0) % Plt Count (160-400) X10*3/uL MPV (9.4-12.3) fL Immature Gran % (Auto) (0.0-0.4) % Neut % (Auto) (45-73) % Lymph % (Auto) (20-40) % [place]ward % (Auto) (2-11) % Eos % (Auto) (0-4) % Baso % (Auto) (0-2) % Lymph # (Auto) (1.2-4.9) X10*3/uL [place] # (Auto) (0.1-1.2) X10*3/uL Eos # (Auto) (0.0-0.4) X10*3/uL Baso # (Auto) (0.0-0.2) X10*3/uL Abs Immat Gran (auto) (0.00-0.03) X10*3/uL Absolute Neuts (auto) (2.0-8.3) X10*3/uL Absolute Nucleated RBC (0.0-0.012) X10*3/uL Nucleated RBC % (auto) (0.0-0.2) /100WBC PT (9.9-13.0) SEC INR (0.9-1.1) APTT (24.1-38.0) SEC Sodium (135-145) mmol/L Potassium (3.3-5.1) mmol/L Chloride (96-108) mmol/L Carbon Dioxide (22-29) mmol/L Anion Gap (12-20) BUN (9-16) mg/dL Creatinine (0.5-1.4) mg/dL Estim Creat Clear Calc Estimated GFR Random Glucose (60-115) mg/dL Calcium (8.4-10.2) mg/dL Total Bilirubin (0.0-1.0) mg/dL Direct Bilirubin (0.0-0.5) mg/dL AST (5-31) U/L ALT (0-31) U/L Alkaline Phosphatase (39-117) U/L Total Protein (6.5-8.0) g/dL Albumin (3.5-5.0) g/dL Lipase (8-78) U/L Beta HCG, Quant mIU/mL Urine Color YELLOW Urine Appearance HAZY Urine pH 6.0 (5.0-8.0) Ur Specific [place] >= 1.030 H (1.005-1.025) Urine Protein 2+ H (NEG-TRACE) MG/DL Urine Glucose (UA) NEG (NEG) MG/DL Urine Ketones >=80 (NEG) MG/DL Urine Blood NEG (NEG) Urine Nitrite NEG (NEG) Ur Leukocyte Esterase NEG (NEG) Urine RBC 0 (0) /HPF Urine WBC 0 (0-4) /HPF Ur Squamous Epith Cells 1+ /LPF Urine Bacteria TRACE /LPF Urine Mucus 1+ /LPF Urine Test POSITIVE H (NEGATIVE) Chlam trachomat DNA PCR (Not Detect.) N.gonorrhoeae DNA (PCR) (Not Detect.) Blood Type A Positive 08/22/21 08/22/21 08/22/21 Range/Units 11:34 12:36 13:13 WBC (4.8-10.8) X10*3/uL RBC (4.20-5.50) X10*6/uL Hgb (12.0-16.0) g/dl Hct (37-47) % MCV (80-98) fL MCH (27.0-33.0) pg MCHC (31.0-35.0) g/dl RDW (11.0-16.0) % Plt Count (160-400) X10*3/uL MPV (9.4-12.3) fL Immature Gran % (Auto) (0.0-0.4) % Neut % (Auto) (45-73) % Lymph % (Auto) (20-40) % [place] % (Auto) (2-11) % Eos % (Auto) (0-4) % Baso % (Auto) (0-2) % Lymph # (Auto) (1.2-4.9) X10*3/uL [place] # (Auto) (0.1-1.2) X10*3/uL Eos # (Auto) (0.0-0.4) X10*3/uL Baso # (Auto) (0.0-0.2) X10*3/uL Abs Immat Gran (auto) (0.00-0.03) X10*3/uL Absolute Neuts (auto) (2.0-8.3) X10*3/uL Absolute Nucleated RBC (0.0-0.012) X10*3/uL Nucleated RBC % (auto) (0.0-0.2) /100WBC PT (9.9-13.0) SEC INR (0.9-1.1) APTT (24.1-38.0) SEC Sodium (135-145) mmol/L Potassium (3.3-5.1) mmol/L Chloride (96-108) mmol/L Carbon Dioxide (22-29) mmol/L Anion Gap (12-20) BUN (9-16) mg/dL Creatinine (0.5-1.4) mg/dL Estim Creat Clear Calc Estimated GFR Random Glucose (60-115) mg/dL Calcium (8.4-10.2) mg/dL Total Bilirubin (0.0-1.0) mg/dL Direct Bilirubin (0.0-0.5) mg/dL AST (5-31) U/L ALT (0-31) U/L Alkaline Phosphatase (39-117) U/L Total Protein (6.5-8.0) g/dL Albumin (3.5-5.0) g/dL Lipase (8-78) U/L Beta HCG, Quant mIU/mL Urine Color YELLOW YELLOW Urine Appearance CLOUDY HAZY Urine pH 8.0 7.5 (5.0-8.0) Ur Specific [place] 1.015 1.015 (1.005-1.025) Urine Protein NEG NEG (NEG-TRACE) MG/DL Urine Glucose (UA) NEG NEG (NEG) MG/DL Urine Ketones >=80 >=80 (NEG) MG/DL Urine Blood NEG NEG (NEG) Urine Nitrite NEG NEG (NEG) Ur Leukocyte Esterase NEG NEG (NEG) Urine RBC (0) /HPF Urine WBC (0-4) /HPF Ur Squamous Epith Cells /LPF Urine Bacteria /LPF Urine Mucus /LPF Urine Test (NEGATIVE) Chlam trachomat DNA PCR NOT DETECTED (Not Detect.) N.gonorrhoeae DNA (PCR) NOT DETECTED (Not Detect.) Blood Type Discharge Plan Discharge Clinical Impression: Hyperemesis gravidarum Patient Disposition: Home, Self-Care Instructions: Hyperemesis Gravidarum (ED) Additional Instructions: blood work came back normal. Ultrasound shows you about 5 weeks . Please follow-up with Dr. Vincent davila OBGYN as soon as possible. Return to the ED for inability tolerate solid food/liquid, vaginal bleeding, abdominal pain, vaginal discharge, flank pain, fever, chills, or any other concerning symptoms. Prescriptions: New pyridoxine (vitamin B6) 25 mg tablet 25 mg PO TID PRN (Reason: nausea and vomiting) 5 Days Qty: 15 RF: 0 No Action loperamide 2 mg tablet 2 mg PO Q6H PRN (Reason: loose stool) Qty: 10 RF: 0 ondansetron 4 mg tablet,disintegrating 4 mg PO Q8H PRN (Reason: nausea and vomiting) Qty: 20 RF: 0 metoclopramide HCl [Reglan] 10 mg tablet 10 mg PO Q6H PRN (Reason: nausea and vomiting) Qty: 30 RF: 0 acetaminophen [Tylenol Extra Strength] 500 mg tablet 500 mg PO Q6H PRN (Reason: pain) Qty: 14 RF: 0 oxycodone 5 mg tablet 5 mg PO BID PRN (Reason: pain) Qty: 10 RF: 0 ondansetron HCl [Zofran] 4 mg tablet 4 mg PO Q8H PRN (Reason: nausea and vomiting) Qty: 10 RF: 0 famotidine [Pepcid] 20 mg tablet 20 mg PO DAILY Qty: 10 RF: 0 ondansetron 4 mg tablet,disintegrating 4 mg PO Q8H PRN (Reason: nausea and vomiting) Qty: 20 RF: 0 misoprostol 200 mcg tablet 800 mcg vaginal Q3H 3 Days Qty: 96 RF: 0 Referrals: Wallace Kaur MD [Physician] - 2 days (Hyperemesis ) Stand Alone Forms: Work/School Release Interventions: ED Discharge Assessment Last Done: 08/22/21 14:24 Discharge Date/Time: 08/22/21 14:24 Print Language: Hungarian
[2021-08-22 09:32] LABS: HCG Quantitative 6465 mIU/mL
[2021-08-22 09:55] VITALS: BP 130/63; PULSE 70; RESP 16; TEMP 36.7; O2SAT 100
[2021-08-22] MEDS: 0.9 % Sodium Chloride 1,000 ML 999 ML IV (10:36)
--- NOTE | 2021-08-22 10:54 | PC.NURSE ---
PT OFF TO ULTRASOUND VIA STRETCHER.
[2021-08-22 11:45] LABS: Appearance Urine CLOUDY; Color Urine YELLOW; Glucose Urine UA NEG (NEG); Leukocyte Esterase Urine NEG (NEG); Nitrite Urine NEG (NEG); Specific Gravity - Urine 1.015 (1.005-1.025); Urine Blood NEG (NEG); Urine Ketones >=80 MG/DL (NEG); Urine Protein NEG (NEG-TRACE)
[2021-08-22 12:00] VITALS: BP 122/63; PULSE 60; RESP 14; TEMP 36.8; O2SAT 99
[2021-08-22 13:19] LABS: Appearance Urine HAZY; Color Urine YELLOW; Glucose Urine UA NEG (NEG); Leukocyte Esterase Urine NEG (NEG); Nitrite Urine NEG (NEG); PH 7.5 (5.0-8.0); Specific Gravity - Urine 1.015 (1.005-1.025); Urine Blood NEG (NEG); Urine Ketones >=80 MG/DL (NEG); Urine Protein NEG (NEG-TRACE)
[2021-08-22 13:31] VITALS: BP 108/70; PULSE 71; RESP 18; TEMP 36.8; O2SAT 99
--- NOTE | 2021-08-22 13:58 | PC.NURSE ---
pt clement po fluids (water) well, mlp (june) aware.
[2021-08-22 14:33] LABS: CT PCR NOT DETECTED (Not Detect.); NG PCR NOT DETECTED (Not Detect.)
[2021-08-24 12:35] LABS: BV Int Neg Control Negative (Negative); BV Int Pos Control Positive (Positive)
== END 2021-08-22 14:24 | disposition home or self-care (01) ==
PROVIDERS: Physician Assistant; Emergency Provider Emergency Medicine
DX: O21.0 Mild hyperemesis gravidarum (principal); Z79.899 Other long term (current) drug therapy
CPT/HCPCS: 36415; 76801; 76817; 80053; 81001; 81003; 81025; 82248; 83690; 84702; 85025; 85610; 85730; 86900; 86901; 87480; 87491; 87510; 87591; 87660; 96361; 96374; 96375; 99284; J2405

== ENCOUNTER 2021-08-23 08:28 | Emergency (ER) | payer OTHER, SELFPAY ==
[2021-08-23 08:29] VITALS: BP 141/86; PULSE 57; RESP 16; TEMP 36.7; O2SAT 99; BMI 21.5
--- NOTE | 2021-08-23 09:19 | ED_ITS ---
HPI - Nausea/Vomiting/Diarrhea General Chief complaint: Nausea/Vomiting/Diarrhea Stated complaint: vomiting Time Seen by Provider: 08/23/21 09:07 Source: patient Mode of arrival: ambulatory History of Present Illness HPI Narrative: 21-year-old female at 5 weeks gestation presenting to the ED complaining of persistent nausea & vomiting with inability to keep anything down since yesterday. Patient was seen and treated in our ED yesterday for similar symptoms, had labs and ultrasound yesterday. Reports continued lower abdominal cramping, unchanged from yesterday, continued clear vaginal discharge unchanged from yesterday. Denies fever, chills, dysuria, vaginal bleeding MD elicited complaint: nausea and vomiting Related Data Previous Rx's Medication Instructions Recorded loperamide 2 mg tablet 2 mg PO Q6H PRN #10 tab 08/25/20 ondansetron 4 mg disintegrating 4 mg PO Q8H PRN #20 tab 08/29/20 tablet acetaminophen 500 mg tablet 500 mg PO Q6H PRN #14 tab 01/02/21 (Tylenol Extra Strength) metoclopramide HCl 10 mg tablet 10 mg PO Q6H PRN #30 tab 01/02/21 (Reglan) oxycodone 5 mg tablet 5 mg PO BID PRN #10 tab 01/02/21 famotidine 20 mg tablet (Pepcid) 20 mg PO DAILY #10 tab 01/09/21 ondansetron HCl 4 mg tablet 4 mg PO Q8H PRN #10 tab 01/09/21 (Zofran) misoprostol 200 mcg tablet 800 mcg VAGINAL Q3H 3 Days #96 tab 01/16/21 ondansetron 4 mg disintegrating 4 mg PO Q8H PRN #20 tab 08/19/21 tablet pyridoxine (vitamin B6) 25 mg 25 mg PO TID PRN 5 Days #15 tab 08/22/21 tablet metoclopramide HCl 10 mg tablet 10 mg PO Q6H PRN #20 tab 08/23/21 (Reglan) Allergies Allergy/AdvReac Type Severity Reaction Status Date / Time No Known Allergies Allergy Verified 08/18/21 23:48 [No Known Allergies*] Review of Systems Review of Systems: Constitutional: No Fever, No Chills, No Fatigue, No Malaise ENT/Mouth: No Ear Pain, No Nasal Congestion,No Hoarseness, No sore throat, No R hinorrhea, No Swallowing Difficulty Eyes: No Eye Pain, No Swelling, No Discharge, No Vision Changes Cardiovascular: No Chest Pain, No SOB, No Edema, No Palpitations Respiratory: No Cough, No Sputum, No Dyspnea Gastrointestinal: + Nausea, + Vomiting, No Diarrhea, No Constipation, + Abdominal cramping Genitourinary: No irregular bleeding, No Dysuria, No Urinary Frequency, + vaginal discharge Musculoskeletal: No joint pain, No Myalgias Skin: No Skin Lesions, No rash Neuro: No Weakness, No Numbness, No Loss of Consciousness, No Dizziness, No Headache Yes all other systems are reviewed and are negative PMFSH Past Medical History Attestation statement: The following information was validated with the patient. Medical History Migraine No known health problems Social History Social History Alcohol intake: current Alcohol intake frequency: does not drink Patient Tobacco Use Status: Never used Tobacco Use of substances other than those prescribed or required for medical reasons: Yes Substance Use Type: Marijuana Substance Use Frequency: Daily Substance Use Frequency Other:: smoked last week, trying not smoke because of pregancy Advance Directives: No Patient : No Physical Exam Vital Signs: Vital Signs: Last Vital Signs Temp 98.6 F 08/23/21 11:58 Pulse 63 08/23/21 11:58 Resp 18 08/23/21 11:58 BP 126/67 08/23/21 11:58 Pulse Ox 100 08/23/21 11:58 Body Mass Index 21.5 Const: General: cooperative, healthy appearing, no acute distress and anxious Orientation/consciousness: patient oriented x3 Limitations: no limitations HENMT: Head: Yes normal to inspection Ears: hearing grossly normal bilaterally General nose exam: Normal external nose present Face and sinus: Yes normal facial exam Eyes: General: appearance normal, both eyes and all related structures EOM: EOMs intact bilaterally Neck: Neck: Yes normal visual inspection, Yes no lymphadenopathy and Yes no meningeal signs Resp: Effort & Inspection: normal respiratory effort and no respiratory distress Cardio: Rate: regular rate Heart sounds: S1 normal heart sound present and S2 normal heart sound present GI: Inspection: Yes normal to inspection Palpation (GI): Soft to palpation, nontender, no guarding and not rigid : Other: Pelvic exam deferred (performed yesterday) Skin: Rashes: no rashes Wounds: no wounds Neuro: General: patient oriented x3 and no meningeal signs Gait exam (Neuro): Normal gait present Extrem: General: Yes normal to inspection Course Course Course Narrative: -1038--improved leukocytosis 12.6. H&H stable. Mild hyponatremia 130, bilirubin slightly elevated T bili 1.3, D bili 0.6 -beta quant 7904. UA with greater than 80 ketones -1400--patient received a total of 2L normal saline, 1L of lactated Ringer's, is tolerating p.o., patient feels safe for discharge at this time. Reports Nava not working, will initiate Reglan. Discussed with patient worrisome signs and symptoms and strict return precautions and needed follow-up with OBGYN, she verbalized understanding feel safe for discharge home at this time MDM - Nausea/Vomiting/Diarrhea MDM Narrative Medical decision making narrative: 21-year-old female at 5 weeks gestation presenting to the ED complaining of persistent nausea & vomiting with inability to keep anything down since yesterday. On exam vital signs stable, NAD, nontoxic appearing, abdomen soft/nontender. Concern for hyperemesis/dehydration. Labs/ultrasound reviewed from yesterday. UA with greater than 80 ketones yesterday. Ultrasound showing single IUP at 5 weeks 3 days. Plan: Repeat labs, UA, IVF, symptomatic treatment, p.o. challenge Medical Records Attestation: I reviewed the patient's medical records. Lab Data Attestation: I reviewed the patient's lab results. Result diagrams: 08/23/21 09:28 08/23/21 09:28 Labs: Lab Results 08/23/21 08/23/21 08/23/21 Range/Units 09:28 09:28 09:41 WBC 12.6 H (4.8-10.8) X10*3/uL RBC 3.92 L (4.20-5.50) X10*6/uL Hgb 11.9 L (12.0-16.0) g/dl Hct 33.2 L (37-47) % MCV 84.7 (80-98) fL MCH 30.4 (27.0-33.0) pg MCHC 35.8 H (31.0-35.0) g/dl RDW 12.1 (11.0-16.0) % Plt Count 235 (160-400) X10*3/uL MPV 9.6 (9.4-12.3) fL Immature Gran % (Auto) 0.4 (0.0-0.4) % Neut % (Auto) 66.3 (45-73) % Lymph % (Auto) 28.0 (20-40) % [place] % (Auto) 4.6 (2-11) % Eos % (Auto) 0.5 (0-4) % Baso % (Auto) 0.2 (0-2) % Lymph # (Auto) 3.5 (1.2-4.9) X10*3/uL [place] # (Auto) 0.6 (0.1-1.2) X10*3/uL Eos # (Auto) 0.1 (0.0-0.4) X10*3/uL Baso # (Auto) 0.0 (0.0-0.2) X10*3/uL Abs Immat Gran (auto) 0.05 H (0.00-0.03) X10*3/uL Absolute Neuts (auto) 8.4 H (2.0-8.3) X10*3/uL Absolute Nucleated RBC 0.000 (0.0-0.012) X10*3/uL Nucleated RBC % (auto) 0.0 (0.0-0.2) /100WBC Sodium 130 L (135-145) mmol/L Potassium 3.3 (3.3-5.1) mmol/L Chloride 98 (96-108) mmol/L Carbon Dioxide 19 L (22-29) mmol/L Anion Gap 16 (12-20) BUN 9 (9-16) mg/dL Creatinine 0.65 (0.5-1.4) mg/dL Estim Creat Clear Calc 102.4 Estimated GFR > 60 Random Glucose 74 (60-115) mg/dL Calcium 10.0 (8.4-10.2) mg/dL Magnesium 2.2 (1.6-2.6) mg/dL Total Bilirubin 1.3 H (0.0-1.0) mg/dL Direct Bilirubin 0.6 H (0.0-0.5) mg/dL AST 22 (5-31) U/L ALT 25 (0-31) U/L Alkaline Phosphatase 33 L (39-117) U/L Total Protein 7.5 (6.5-8.0) g/dL Albumin 4.5 (3.5-5.0) g/dL Lipase 11 (8-78) U/L Beta HCG, Quant 7904 mIU/mL Urine Color YELLOW Urine Appearance HAZY Urine pH 6.0 (5.0-8.0) Ur Specific [place] >= 1.030 H (1.005-1.025) Urine Protein 1+ H (NEG-TRACE) MG/DL Urine Glucose (UA) NEG (NEG) MG/DL Urine Ketones >=80 (NEG) MG/DL Urine Blood NEG (NEG) Urine Nitrite NEG (NEG) Ur Leukocyte Esterase NEG (NEG) Urine RBC 0 (0) /HPF Urine WBC 0-2 (0-4) /HPF Ur Squamous Epith Cells TRACE /LPF Urine Bacteria NONE /LPF Urine Mucus TRACE /LPF Discharge Plan Discharge Clinical Impression: Hyperemesis gravidarum Patient Disposition: Home, Self-Care Instructions: Hyperemesis Gravidarum (ED) Additional Instructions: It is very important that you stay hydrated at home Eat small frequent meals Continue to take vitamin B6 to help with nausea You may also take Benadryl at home to help with nausea, however this will make you drowsy Reglan is an additional medication to help for nausea and vomiting, take as needed Call your OBGYN for follow-up in the next 1-2 days if you are unable to tolerate food or liquid, you are not making urine, you develop abdominal pain, persistent nausea/vomiting please return to the ED If you develop vaginal bleeding or discharge please return to the ED Prescriptions: New metoclopramide HCl [Reglan] 10 mg tablet 10 mg PO Q6H PRN (Reason: nausea and vomiting) Qty: 20 RF: 0 No Action loperamide 2 mg tablet 2 mg PO Q6H PRN (Reason: loose stool) Qty: 10 RF: 0 ondansetron 4 mg tablet,disintegrating 4 mg PO Q8H PRN (Reason: nausea and vomiting) Qty: 20 RF: 0 metoclopramide HCl [Reglan] 10 mg tablet 10 mg PO Q6H PRN (Reason: nausea and vomiting) Qty: 30 RF: 0 acetaminophen [Tylenol Extra Strength] 500 mg tablet 500 mg PO Q6H PRN (Reason: pain) Qty: 14 RF: 0 oxycodone 5 mg tablet 5 mg PO BID PRN (Reason: pain) Qty: 10 RF: 0 ondansetron HCl [Zofran] 4 mg tablet 4 mg PO Q8H PRN (Reason: nausea and vomiting) Qty: 10 RF: 0 famotidine [Pepcid] 20 mg tablet 20 mg PO DAILY Qty: 10 RF: 0 ondansetron 4 mg tablet,disintegrating 4 mg PO Q8H PRN (Reason: nausea and vomiting) Qty: 20 RF: 0 pyridoxine (vitamin B6) 25 mg tablet 25 mg PO TID PRN (Reason: nausea and vomiting) 5 Days Qty: 15 RF: 0 misoprostol 200 mcg tablet 800 mcg vaginal Q3H 3 Days Qty: 96 RF: 0 Referrals: Wallace Kaur MD [Physician] - 2 days
[2021-08-23] MEDS: diphenhydrAMINE HCL 50 MG/ML VIAL 12.5 MG IVPUSH (09:29)
[2021-08-23] MEDS: Acetaminophen 325 MG TABLET 650 MG PO (09:29)
[2021-08-23] MEDS: 0.9 % Sodium Chloride 1,000 ML 999 ML IVCONT (09:30)
[2021-08-23 09:31] VITALS: BP 142/89; PULSE 77; RESP 20; O2SAT 100
[2021-08-23 09:34] LABS: MANUAL DIFF FLAG NO
[2021-08-23] MEDS: Famotidine/PF 20 MG/2 ML VIAL IVPUSH (09:34)
[2021-08-23] MEDS: Pyridoxine HCl (Vitamin B6) 50 MG TABLET 25 MG PO (09:34)
[2021-08-23 09:35] LABS: Basophils Percent Auto 0.2 % (0-2); Eosinophils Absolute Auto 0.1 X10*3/uL (0.0-0.4); Eosinophils Percent Auto 0.5 % (0-4); Hematocrit 33.2 % (37-47); Hemoglobin 11.9 g/dl (12.0-16.0); Imm Gran Abs Auto 0.05 X10*3/uL (0.00-0.03); Imm Gran Pct Auto 0.4 % (0.0-0.4); Lymphocytes Absolute Auto 3.5 X10*3/uL (1.2-4.9); Mean Corpuscular HGB Conc 35.8 g/dl (31.0-35.0); Mean Corpuscular Hemoglobin 30.4 pg (27.0-33.0); Mean Corpuscular Volume 84.7 fL (80-98); Mean Platelet Volume 9.6 fL (9.4-12.3); Monocytes Absolute Auto 0.6 X10*3/uL (0.1-1.2); Monocytes Percent Auto 4.6 % (2-11); Neutrophils Absolute Auto 8.4 X10*3/uL (2.0-8.3); Neutrophils Percent Auto 66.3 % (45-73); Platelet Count 235 X10*3/uL (160-400); Red Blood Count 3.92 X10*6/uL (4.20-5.50); Red Cell Distribution Width 12.1 % (11.0-16.0); White Blood Count 12.6 X10*3/uL (4.8-10.8)
--- NOTE | 2021-08-23 09:36 | PC.NURSE ---
pt is alert and oriented, skin slightly pale in appearance, respirations even and unlabored, pt is 6 weeks preg, reports not being able to eat anything in the last 5 days, trying to drink different liquids but also vomits it right back. pt also reprots feelign really anxious due to a previous miscarriage. pt also used to smoke marijuana daily but since she found out she is not smoking much, lst time smoke was a week ago
[2021-08-23 09:47] LABS: Appearance Urine HAZY; Color Urine YELLOW; Glucose Urine UA NEG (NEG); Leukocyte Esterase Urine NEG (NEG); Nitrite Urine NEG (NEG); Specific Gravity - Urine >= 1.030 (1.005-1.025); UACC Culture Trigger NO; Urine Blood NEG (NEG); Urine Ketones >=80 MG/DL (NEG); Urine Protein 1+ MG/DL (NEG-TRACE)
[2021-08-23 10:02] LABS: Alanine Aminotransferase 25 U/L (0-31); Albumin Level 4.5 g/dL (3.5-5.0); Alkaline Phosphatase 33 U/L (39-117); Anion Gap 16 (12-20); Aspartate Amino Transferase 22 U/L (5-31); Bilirubin Direct 0.6 mg/dL (0.0-0.5); Bilirubin Total 1.3 mg/dL (0.0-1.0); Blood Urea Nitrogen 9 mg/dL (9-16); Carbon Dioxide 19 mmol/L (22-29); Chloride 98 mmol/L (96-108); Creatinine Clr Calc Pharmacy 102.4; Estimated Glomerular Filt Rate > 60; Glucose Random 74 mg/dL (60-115); Lipase 11 U/L (8-78); Magnesium 2.2 mg/dL (1.6-2.6); Potassium 3.3 mmol/L (3.3-5.1); Sodium 130 mmol/L (135-145); Total Protein 7.5 g/dL (6.5-8.0)
[2021-08-23 10:12] LABS: HCG Quantitative 7904 mIU/mL
[2021-08-23] MEDS: 0.9 % Sodium Chloride 1,000 ML 999 ML IV (10:29)
--- NOTE | 2021-08-23 10:32 | PC.NURSE ---
pt reports feeling slightly better after the medications, no vomiting since the pt's arrival to the ed
[2021-08-23 11:23] LABS: Mucus Urine TRACE /LPF; RBC Urine 0 /HPF (0); Squamous Epithelial Cell Urine TRACE /LPF; WBC Urine 0-2 /HPF (0-4)
[2021-08-23 11:58] VITALS: BP 126/67; PULSE 63; RESP 18; TEMP 37; O2SAT 100
[2021-08-23] MEDS: Lactated Ringers 1,000 ML 999 ML IV (12:12)
--- NOTE | 2021-08-23 12:43 | PC.NURSE ---
pt is tolerating ice chips at this time, no vomiting noticed
[2021-08-23 14:27] VITALS: BP 129/73; PULSE 61; RESP 18; O2SAT 100
== END 2021-08-23 14:44 | disposition home or self-care (01) ==
PROVIDERS: Physician Assistant; Emergency Provider Emergency Medicine
DX: O21.0 Mild hyperemesis gravidarum (principal); O26.91 Pregnancy related conditions, unspecified, first trimester; Z3A.01 Less than 8 weeks gestation of pregnancy; Z79.899 Other long term (current) drug therapy
CPT/HCPCS: 36415; 80048; 80076; 81001; 83690; 83735; 84702; 85025; 96361; 96374; 96375; 99284; J1200

== ENCOUNTER 2021-09-11 09:48 | Outpatient (REF) | payer OTHER, SELFPAY ==
[2021-09-11 11:26] LABS: Appearance Urine HAZY; Color Urine YELLOW; Glucose Urine UA NEG (NEG); Leukocyte Esterase Urine NEG (NEG); Nitrite Urine NEG (NEG); Specific Gravity - Urine >= 1.030 (1.005-1.025); Urine Blood NEG (NEG); Urine Ketones NEG (NEG); Urine Protein NEG (NEG-TRACE)
== END 2021-09-11 09:49 | disposition home or self-care (01) ==
LOC: HO.LAB 09:48
PROVIDERS: Visit Provider Advanced Practice Midwife
DX: O21.9 Vomiting of pregnancy, unspecified (principal); O26.891 Other specified pregnancy related conditions, first trimester; R82.90 Unspecified abnormal findings in urine; K59.00 Constipation, unspecified; Z3A.08 8 weeks gestation of pregnancy
CPT/HCPCS: 81003; 99212

== ENCOUNTER 2021-09-12 09:14 | Outpatient (REF) | payer OTHER, SELFPAY ==
--- NOTE | ~2021-09-12 | US_ITS ---
EXAMINATION: OBSTETRICAL ULTRASOUND, FIRST TRIMESTER HISTORY: 21-year-old with the uncertain LMP LMP: 07/14/2021 COMPARISON: 08/22/2021 TECHNIQUE: Real time transabdominal imaging with color and M-mode Doppler. FINDINGS: A single, live IUP CRL of 18.0 mm c/w 8.3wks is noted. Heart Rate: 176 beats per minute. Both maternal ovaries are seen and appear normal. GESTATIONAL AGE: 1. GA from LMP: 8.4 wks 2. GA from AUA: 8.3 wks ESTIMATED DATE OF DELIVERY: 1. RICHARD from LMP: 04/20/2022 2. RICHARD from AUA: 04/21/2022 US/US OB <= 14 weeks fetus IMPRESSION: 1. A single live IUP 2. CRL is consistent with 8 weeks 3 days. This confirms that her LMP based RICHARD of 04/20/2022. 3. Normal ovaries Thank you very much for this referral. This note was generated with a voice recognition program. Please excuse any errors which may have been overlooked during my review of this note. Sometimes these errors may affect the content or meaning of a given sentence.
== END 2021-09-12 09:15 | disposition home or self-care (01) ==
LOC: HO.US 09:14
PROVIDERS: Visit Provider Advanced Practice Midwife
DX: O09.299 Supervision of pregnancy with other poor reproductive or obstetric history, unspecified trimester (principal)
CPT/HCPCS: 76801

== ENCOUNTER 2021-09-19 10:02 | Outpatient (REF) | payer OTHER, SELFPAY ==
[2021-09-19 12:06] LABS: Hematocrit 36.7 % (37.0-47.0); Hemoglobin 12.5 g/dl (12.0-16.0); Mean Corpuscular HGB Conc 34.1 g/dl (31.0-35.0); Mean Corpuscular Hemoglobin 30.3 pg (27.0-33.0); Mean Corpuscular Volume 88.9 fL (80.0-98.0); Mean Platelet Volume 9.5 fL (9.4-12.3); Platelet Count 288 X10*3/uL (160-400); Red Blood Count 4.13 X10*6/uL (4.20-5.50); Red Cell Distribution Width 12.6 % (11.0-16.0); White Blood Count 11.2 X10*3/uL (4.8-10.8)
[2021-09-19 12:44] LABS: HIV AB/AG Nonreactive (Nonreactive); HIV Num 1 0.07 S/CO (0.00-0.99); ~HepC Num1 0.05 S/CO (0.00-0.79); ~Hepatitis C Antibody Nonreactive (Nonreactive)
[2021-09-19 12:56] LABS: HBsAGNum1 0.18 S/CO (0.00-0.99); Hepatitis B Surface Antigen Negative (Negative)
[2021-09-19 13:33] LABS: Amphetamine Screen Urine Not Detected (Not Detect); Barbiturates, Urine Not Detected (Not Detect); Benzodiazepines Screen Urine Not Detected (Not Detect); Cannabinoid Screen Urine POSITIVE (Not Detect); Cocaine Screen Urine Not Detected (Not Detect); Fentanyl, urine Not Detected (Not Detect); Opiate Screen Urine Not Detected (Not Detect); Phencyclidine Screen Urine Not Detected (Not Detect)
[2021-09-19 14:11] LABS: Syphilis Screen Nonreactive (Nonreactive)
[2021-09-23 17:47] LABS: Rubella IgG Antibody 6.61 Index
== END 2021-09-19 10:03 | disposition home or self-care (01) ==
LOC: HO.LAB 10:02
PROVIDERS: Visit Provider Advanced Practice Midwife
DX: Z34.91 Encounter for supervision of normal pregnancy, unspecified, first trimester (principal); Z3A.09 9 weeks gestation of pregnancy
CPT/HCPCS: 80307; 85027; 86762; 86780; 86787; 86803; 86850; 86900; 86901; 87086; 87340; 87389; 99212

== ENCOUNTER 2021-10-03 08:54 | Outpatient (REF) | payer OTHER, SELFPAY ==
[2021-10-04 14:52] LABS: CT PCR NOT DETECTED (Not Detect.); NG PCR NOT DETECTED (Not Detect.)
== END 2021-10-03 08:55 | disposition home or self-care (01) ==
LOC: HO.LAB 08:54
PROVIDERS: Visit Provider Advanced Practice Midwife
DX: Z34.91 Encounter for supervision of normal pregnancy, unspecified, first trimester (principal)
CPT/HCPCS: 87491; 87591; 88142

== ENCOUNTER 2021-10-03 09:03 | Outpatient (REF) | payer OTHER, SELFPAY ==
--- NOTE | ~2021-10-03 | US_ITS ---
EXAMINATION: OBSTETRICAL ULTRASOUND, FIRST TRIMESTER HISTORY: 21-year-old at 11.4 weeks of gestation NT screening COMPARISON: 09/12/2021 TECHNIQUE: Real time transabdominal imaging with color and M-mode Doppler. FINDINGS: A single, live IUP CRL of 45.8 mm c/w 11.3wks is noted. Heart Rate: 174 beats per minute. Normal yolk sac seen. NT was 0.75.mm. NB Present The embryo appears sonographically wnl for this GA. Both maternal ovaries are seen and appear normal. GESTATIONAL AGE: 1. Established GA: 11.4 wks 2. GA from AUA: 11.3 wks ESTIMATED DATE OF DELIVERY: 1. Established RICHARD: 04/20/2022 2. RICHARD from AUA: 04/21/2022 US/US OB 1T nuc measure IMPRESSION: 1. Single live IUP 2. Size equals dates 3. NT of 0.75 mm MFM Consultation: I reviewed the ultrasound findings along with significance of NT measurement. The NT of less than 3mm is generally reassuring. However, the sensitivity for T21 detection is only 60%. I reviewed the availability of serum aneuploidy screening which includes cell-free DNA and placental protein based tests. I discussed the sensitivity, false-positive rate, and other limitations associated with each test. I also reviewed the availability of invasive diagnostic tests that are associated small but definite risk of miscarriage. We also reviewed the differences between screening tests and diagnostic tests. After our discussion, she opted for the First trimester screening that is based on cell-free DNA or non-invasive testing (NIPT). The result will be faxed to your office in approximately 7 days. A follow up at 18 weeks for survey has been scheduled. Thank you very much for this referral. Total time 30 minutes. The time spent was devoted to counseling the patient about the disease and diagnosis, coordinating care including reviewing her records, pertinent lab data and studies, as well as discussing diagnostic evaluation and workup, plan therapeutic interventions and future disposition of care. This includes any additional research needed to obtain further information in formulating the plan of care of this patient. This note was generated with a voice recognition program. Please excuse any errors which may have been overlooked during my review of this note. Sometimes these errors may affect the content or meaning of a given sentence.
== END 2021-10-03 09:04 | disposition home or self-care (01) ==
LOC: HO.US 09:03
PROVIDERS: Visit Provider Advanced Practice Midwife
DX: O09.291 Supervision of pregnancy with other poor reproductive or obstetric history, first trimester (principal); O99.341 Other mental disorders complicating pregnancy, first trimester; F41.9 Anxiety disorder, unspecified; F32.9 Major depressive disorder, single episode, unspecified; O99.321 Drug use complicating pregnancy, first trimester; F12.90 Cannabis use, unspecified, uncomplicated; Z3A.11 11 weeks gestation of pregnancy
CPT/HCPCS: 76813; 99212

== ENCOUNTER → 2021-11-12 09:33 | Outpatient (BNVA) | payer OTHER, SELFPAY | PROVIDERS: Visit Provider Obstetrics & Gynecology | DX: O99.342 Other mental disorders complicating pregnancy, second trimester (principal); F41.8 Other specified anxiety disorders; F32.A Depression, unspecified; O09.292 Supervision of pregnancy with other poor reproductive or obstetric history, second trimester; O99.322 Drug use complicating pregnancy, second trimester; F12.90 Cannabis use, unspecified, uncomplicated; Z3A.17 17 weeks gestation of pregnancy | CPT/HCPCS: 99212 ==

== ENCOUNTER 2021-11-28 10:08 | Outpatient (REF) | payer OTHER, SELFPAY ==
--- NOTE | ~2021-11-28 | US_ITS ---
EXAMINATION: US OBSTETRICAL CLINICAL INFORMATION: 21-year-old at 19.4 weeks of gestation Screening for anomaly COMPARISON: 10/03/2021 TECHNIQUE: Real-time transabdominal ultrasound was performed using C1-5 megahertz transducer. Transvaginal ultrasound was performed using an endovaginal probe. FINDINGS: A single, active, fetus is seen in vertex presentation. The placenta is anterior without previa, and the amniotic fluid volume is wnl. MEASUREMENTS: 1. Biparietal Diameter: 4.6 cm; 20.1 wks 2. Occipital Frontal Diameter: 6.1 cm 3. Head Circumference: 17.1 cm; 19.5 wks 4. Abdominal Circumference: 14.8 cm; 20.1 wks 5. Femur Length: 3.0 cm; 19.2 wks 6. Humerus Length: 2.85 cm; 19.2 wks 7. Tibia Length: 2.5 cm; 19.0 wks 8. Ulna Length: 2.6 cm; 19.5 wks 9. Lateral ventricle: 0.7 cm 10. Cerebellum: 1.98 cm; 20.2 wks 11. Cisterna Magna: 0.4 cm 12. Nuchal Fold: 3.3 mm 13. Heart Rate: 140 beats per minute Rt ovary: normal Lt ovary: normal Cervical length 3.8 cm on T/V. GESTATIONAL AGE: 1. Established GA: 19.4 wks 2. GA from [facility]: 19.6 wks ESTIMATED DATE OF DELIVERY: 1. Established RICHARD: 04/20/2022 2. RICHARD from [facility]: 04/18/2020 ANATOMY: The visualized anatomy includes but not limited to: 1. Cranium: Normal 2. Intracranial anatomy: cavum septum pellucidi, lateral ventricles, choroid plexus, cerebellum, posterior fossa, third and fourth ventricles. 3. face: orbits, lip/palate, profile, nasal bone 4. Heart: four-chamber view of the heart, ventricular septum, foramen ovale, pulmonary vein, left and right outflow tracts, three-vessel view, 3 vessel trachea view, aortic and ductal arches, situs.. 5. Diaphragm: Normal 6. Abdominal wall: Normal 7. Cord Insertion: Normal 8. Spine: Cervical, thoracic, lumbar, sacral. 9. Stomach: Normal size and shape 10. Right Kidney: Normal 11. Left Kidney: Normal 12. 3 vessel cord: Normal 13. Upper extremity: Open hands, fifth digit. 14. Lower extremity: Tibia, fibula, bilateral feet. 15. Bladder: Normal 16. Genitalia: Male, patient aware US/US OB /maternal detail IMPRESSION: 1. Single, living, intrauterine with appropriate biometry. 2. Normal survey 3. Normal cervical length DISCUSSION: I reviewed today's ultrasound findings. We discussed the limitations of ultrasound in diagnosing aneuploidy and other congenital abnormalities. I reviewed the differences between screening test and diagnostic test. Amniocentesis was discussed and declined. She was informed that the baseline incidence of congenital abnormalities is approximately 3-5%. Not all these conditions are diagnosable in utero. RECOMMENDATIONS: Follow-up when necessary Thank you for allowing me to participate in her care. Total time 20 minutes. The time spent was devoted to counseling the patient about the disease and diagnosis, coordinating care including reviewing her records, pertinent lab data and studies, as well as discussing diagnostic evaluation and workup, plan therapeutic interventions and future disposition of care. This includes any additional research needed to obtain further information in formulating the plan of care of this patient. This note was generated with a voice recognition program. Please excuse any errors which may have been overlooked during my review of this note. Sometimes these errors may affect the content or meaning of a given sentence.
--- NOTE | ~2021-11-28 | US_ITS ---
Please refer to the dictation for the survey performed on the same day. Transvaginal ultrasound was performed. The cervical length was 3.8 cm without funneling.
== END 2021-11-28 10:09 | disposition home or self-care (01) ==
LOC: HO.US 10:08
PROVIDERS: Visit Provider Advanced Practice Midwife
DX: Z34.92 Encounter for supervision of normal pregnancy, unspecified, second trimester (principal); Z3A.19 19 weeks gestation of pregnancy
CPT/HCPCS: 76811; 76817

== ENCOUNTER → 2021-12-10 10:45 | Outpatient (BNVA) | payer OTHER, SELFPAY | PROVIDERS: Visit Provider Advanced Practice Midwife | DX: O26.892 Other specified pregnancy related conditions, second trimester (principal); R39.15 Urgency of urination; Z3A.21 21 weeks gestation of pregnancy | CPT/HCPCS: 81003; 99212 ==

== ENCOUNTER → 2022-01-07 13:31 | Outpatient (BNVA) | payer OTHER, SELFPAY | PROVIDERS: Visit Provider Advanced Practice Midwife | DX: O09.292 Supervision of pregnancy with other poor reproductive or obstetric history, second trimester (principal); O99.342 Other mental disorders complicating pregnancy, second trimester; F32.A Depression, unspecified; F41.9 Anxiety disorder, unspecified; Z3A.25 25 weeks gestation of pregnancy | CPT/HCPCS: 81003; 99212 ==

== ENCOUNTER 2022-01-28 14:21 | Outpatient (REF) | payer OTHER, SELFPAY ==
[2022-01-28 16:03] LABS: Hematocrit 29.1 % (37.0-47.0); Hemoglobin 9.8 g/dl (12.0-16.0); Mean Corpuscular HGB Conc 33.7 g/dl (31.0-35.0); Mean Corpuscular Hemoglobin 30.4 pg (27.0-33.0); Mean Corpuscular Volume 90.4 fL (80.0-98.0); Mean Platelet Volume 9.7 fL (9.4-12.3); Platelet Count 228 X10*3/uL (160-400); Red Blood Count 3.22 X10*6/uL (4.20-5.50); Red Cell Distribution Width 12.1 % (11.0-16.0); White Blood Count 12.7 X10*3/uL (4.8-10.8)
[2022-01-28 16:32] LABS: Glucose 1 Hour PP 50gm Dose 156 mg/dL (60-140)
[2022-01-28 17:03] LABS: Syphilis Screen Nonreactive (Nonreactive)
[2022-01-28 17:19] LABS: Amphetamine Screen Urine Not Detected (Not Detect); Barbiturates, Urine Not Detected (Not Detect); Benzodiazepines Screen Urine Not Detected (Not Detect); Cannabinoid Screen Urine Not Detected (Not Detect); Cocaine Screen Urine Not Detected (Not Detect); Fentanyl, urine Not Detected (Not Detect); Opiate Screen Urine Not Detected (Not Detect); Phencyclidine Screen Urine Not Detected (Not Detect)
== END 2022-01-28 14:22 | disposition home or self-care (01) ==
LOC: HO.LAB 14:21
PROVIDERS: Obstetrics & Gynecology; Visit Provider Advanced Practice Midwife
DX: Z34.92 Encounter for supervision of normal pregnancy, unspecified, second trimester (principal)
CPT/HCPCS: 36415; 80307; 85027; 86780

== ENCOUNTER → 2022-01-29 13:32 | Outpatient (BNVA) | payer OTHER, SELFPAY | PROVIDERS: Visit Provider Advanced Practice Midwife | DX: O99.013 Anemia complicating pregnancy, third trimester (principal); Z3A.28 28 weeks gestation of pregnancy | CPT/HCPCS: 81003; 99212 ==

== ENCOUNTER 2022-02-07 07:20 | Outpatient (REF) | payer OTHER, SELFPAY ==
[2022-02-07 08:37] LABS: Glucose Fasting 89 mg/dL (60-99)
[2022-02-07 09:53] LABS: Glucose 1 Hour 199 mg/dL
[2022-02-07 10:19] LABS: Glucose 2 Hour 169 mg/dL
[2022-02-07 13:07] LABS: Glucose 3 Hour 105 mg/dL
== END 2022-02-07 07:21 | disposition home or self-care (01) ==
LOC: HO.LAB 07:20
PROVIDERS: Visit Provider Advanced Practice Midwife
DX: R73.09 Other abnormal glucose (principal)
CPT/HCPCS: 36415; 82951

== ENCOUNTER → 2022-02-12 13:11 | Outpatient (BNVA) | payer OTHER, SELFPAY | PROVIDERS: Visit Provider Advanced Practice Midwife | DX: O24.410 Gestational diabetes mellitus in pregnancy, diet controlled (principal); O99.013 Anemia complicating pregnancy, third trimester; D64.9 Anemia, unspecified; O99.810 Abnormal glucose complicating pregnancy; R73.09 Other abnormal glucose; Z3A.30 30 weeks gestation of pregnancy | CPT/HCPCS: 81003; 99212 ==

== ENCOUNTER → 2022-02-25 09:04 | Outpatient (BNVA) | payer OTHER, SELFPAY | PROVIDERS: Visit Provider Advanced Practice Midwife | DX: O24.410 Gestational diabetes mellitus in pregnancy, diet controlled (principal); O99.013 Anemia complicating pregnancy, third trimester; D64.9 Anemia, unspecified; Z3A.32 32 weeks gestation of pregnancy | CPT/HCPCS: 81003; 99211; 99212 ==

== ENCOUNTER 2022-02-27 13:30 | Outpatient (REF) | payer OTHER, SELFPAY ==
--- NOTE | ~2022-02-27 | US_ITS ---
EXAMINATION: OBSTETRICAL ULTRASOUND, Follow up HISTORY: 21-year-old at 32.4 weeks of gestation Gestational diabetes Size date discrepancy COMPARISON: 11/28/2021 TECHNIQUE: Real time transabdominal imaging with color and M-mode Doppler. PRESENTATION: Vertex PLACENTA LOCATION: Anterior without previa AMNIOTIC FLUID: OLE 15.2 MEASUREMENTS: 1. Biparietal Diameter: 8.3 cm; 33.3 wks 2. Head Circumference: 30.2 cm; 33.4 wks 3. Abdominal Circumference: 29.0 cm; 33.1 wks 4. Femur Length: 5.9 cm; 30.6 wks 5. Heart Rate: 153 beats per minute WEIGHT: EFW: 1978 grams (4 lbs 6 oz) -- 36 %. BIOPHYSICAL PROFILE: Motion: 2 Tone: 2 Breathin Amniotic Fluid: 2 Total score: 8/8 Right renal pelvis measured 5.7 mm and the left, 5.4 mm. GESTATIONAL AGE: 1. Established GA: 32.4 wks 2. GA from AUA: 32.6 wks ESTIMATED DATE OF DELIVERY: 1. Established RICHARD: 04/20/2022 2. RICHARD from AUA: 04/18/2022 US/US OB follow up IMPRESSION: 1. A single active fetus is in vertex presentation 2. Size equals dates 3. Normal BPP and OLE 4. Bilateral renal pelvises sees are at the upper limit of normal range. No evidence of hydroureter or caliectasis. She informs me that the her glycemic control has been within the target range. She is in the process of being transferred to [facility] remainder of her care. No further ultrasound has been scheduled. Thank you very much for this referral. Total time 30 minutes. The time spent was devoted to counseling the patient about the disease and diagnosis, coordinating care including reviewing her records, pertinent lab data and studies, as well as discussing diagnostic evaluation and workup, plan therapeutic interventions and future disposition of care. This includes any additional research needed to obtain further information in formulating the plan of care of this patient. This note was generated with a voice recognition program. Please excuse any errors which may have been overlooked during my review of this note. Sometimes these errors may affect the content or meaning of a given sentence.
== END 2022-02-27 13:31 | disposition home or self-care (01) ==
LOC: HO.US 13:30
PROVIDERS: Visit Provider Advanced Practice Midwife
DX: O24.419 Gestational diabetes mellitus in pregnancy, unspecified control (principal); O99.013 Anemia complicating pregnancy, third trimester; O26.843 Uterine size-date discrepancy, third trimester; Z3A.32 32 weeks gestation of pregnancy
CPT/HCPCS: 76816

== ENCOUNTER → 2022-03-05 11:16 | Outpatient (BNVA) | payer OTHER, SELFPAY | PROVIDERS: Visit Provider Advanced Practice Midwife | DX: O24.419 Gestational diabetes mellitus in pregnancy, unspecified control (principal); O99.013 Anemia complicating pregnancy, third trimester; Z3A.33 33 weeks gestation of pregnancy | CPT/HCPCS: 81003; 99212 ==

== ENCOUNTER 2023-02-02 08:49 | Emergency (ER) | payer OTHER, SELFPAY ==
[2023-02-02 09:05] VITALS: BP 121/75; PULSE 67; RESP 16; TEMP 36.6; O2SAT 98; BMI 33.6
--- OUTSIDE RECORDS SUMMARY | 2023-02-02 09:31 | XMS_ITS | Continuity of Care Document ---
Author Name Unknown Organization [facility] Address [address] [place] [id number] Care Team Providers Care Truck Sales Representative Name Role Phone Brody MONROE, Crissy Urbina Primary Care Physician [phone] Encounter [facility] [place] R [id number] Date(s): 01/16/21 - 02/15/[address] [id number] Attending Physician: Palmira Garnica Admitting Physician: Palmira Garnica Referring Physician: AdmtrPalmira Allergies, Adverse Reactions, Alerts No Known Medication Allergies Medications acetaminophen/butalbital/caffeine 325 mg-50 mg-40 mg oral tablet See Instructions, 1-2 tablet by mouth every 6 hours as needed for headache, no more than 2 headaches per week, # 30 tablet, 0 Refills, Maintenance, 01/15/16 10:17:29, 1-2 tablet by mouth every 6 hours as needed for headache, no more than 2 headaches p... Start Date: 01/15/16 Status: Ordered Ibuprofen Maintenance, 11/27/15 10:26:20 Start Date: 11/27/15 Status: Ordered propranolol 120 mg oral capsule, extended release 1 capsule = 120 mg, By Mouth, Daily, D/C PRIOR SCRIPT, # 30 capsule, 5 Refills, Maintenance, 06/07/19 11:02:33 EDT, CR Capsule Start Date: 06/07/19 Stop Date: 12/04/19 Status: Ordered Zofran 4 mg oral tablet 1 tablet = 4 mg, By Mouth, Every 8 hours, # 30 tablet, 0 Refills, Maintenance, 12/19/20 14:17:00 EST, Tablet, [id number], Partial fill upon patient request if the prescription is for a schedule II opioid drug., 157, cm, 03/20/19 13:02:00 EDT,... Start Date: 12/19/20 Status: Ordered Problem List Condition Effective Dates Status Health Status Inform ant Anxiety(Confirmed) Active Social History Social History Type Response Smoking Status Never smoker; Tobacc o user in household: No entered on: 02/06/16 Sex
--- OUTSIDE RECORDS SUMMARY | 2023-02-02 09:31 | XMS_ITS | Continuity of Care Document ---
Author Name Unknown Organization [facility] Address Unknown Care Team Providers Care Aoc [employer] Operations Staff Officer Name Role Phone Crissy Skinner MD Primary Care Physician [place] [facility] [place]): 02/24/22 - 03/26/22 [facility] Allergies, Adverse Reactions, Alerts No Known Allergies Immunizations Given and Recorded Vaccine Date Status Refusal Reason tetanus/diphtheria/pertussis, acel(Tdap) 03/13/22 Given influenza virus vaccine, inactivated 11/17/18 Paulo rded influenza virus vaccine, inactivated 07/16/16 Paulo rded Meningococcal Conjugate Vaccine 12/19/15 Recorded Medications Acetaminophen 0 Refills, Maintenance, 03/13/22 11:05:00 EDT, Partial fill upon patient request if the prescription is for a schedule II opioid drug. Start Date: 03/13/22 Status: Ordered Alcohol Wipes See Instructions, # 1 each, Refills 5, Tot. Refills 5, Maintenance, Use QID to test blood sugars, 03/13/22 11:04:00 EDT, Supply, 157, cm, 03/09/22 13:07:00 EDT, Height, 73.4, kg, 02/16/22 12:00:00 EDT, Dry Weight Start Date: 03/13/22 Status: Ordered ferrous sulfate 325 mg oral enteric coated tablet 325 mg, 1, tablet, By Mouth, 3 times a day, Refills 0, Maintenance, 03/09/22 13:26:00 EDT, Partial fill upon patient request if the prescription is for a schedule II opioid drug. Start Date: 03/09/22 Status: Ordered Freestyle Lite Lancets See Instructions, # 200 each, Refills 5, Tot. Refills 5, Maintenance, Use QID to test blood sugars,03/13/22 11:04:00 EDT, Supply, 157, cm, 03/09/22 13:07:00 EDT, Height, 73.4, kg, 02/16/22 12:00:00 EDT, Dry Weight Start Date: 03/13/22 Stop Date: 09/09/22 Status: Ordered Freestyle Lite Monitor See Instructions, # 1 each, Maintenance, use as directed for Gestational Diabetes Mellitus, 03/13/22 11:04:00 EDT, Supply, 157, cm, 03/09/22 13:07:00 EDT, Height, 73.4, kg, 02/16/22 12:00:00 EDT, DryWeight Start Date: 03/13/22 Stop Date: 04/12/22 Status: Ordered Freestyle Lite Test Strips See Instructions, # 200 each, Refills 5, Tot. Refills 5, Maintenance, Use QID to test blood sugars,03/13/22 11:04:00 EDT, Supply, 157, cm, 03/09/22 13:07:00 EDT, Height, 73.4, kg, 02/16/22 12:00:00 EDT, Dry Weight Start Date: 03/13/22 Stop Date: 09/09/22 Status: Ordered PNV By Mouth, Daily, 0 Refills, Maintenance, 03/09/22 13:26:00 EDT, Partial fill upon patient request if the prescription is for a schedule II opioid drug. Start Date: 03/09/22 Status: Ordered Problem List Condition Effective Dates Status Health Status Inform ant Anxiety(Confirmed) Active COVID(Confirmed) 10/01/20 Active History of depression(Confirmed) Active Migraines(Confirmed) Active Obese class I(Confirmed) Active Social History Social History Type Response Smoking Status Never (less than 100 in lifetime) entered on: 03/09/22 Sex
--- OUTSIDE RECORDS SUMMARY | 2023-02-02 09:31 | XMS_ITS | Continuity of Care Document ---
Author Name Unknown Organization [facility] Address [address] [facility]. [address] [place] [address]- Care Team Providers Care Application Development Specialist Name Role Phone Crissy Skinner MD Primary Care Physician En[place] [facility] [place] Date(s): 05/01/22 - 07/15/22 [facility] [address] [address] Attending Physician: Mariel Smiley CNM Admitting Physician: Mariel Smiley CNM Referring Physician: Bonita Chávez CNM Allergies, Adverse Reactions, Alerts No Known Allergies [...] opioid drug. Start Date: 03/13/22 Status: Ordered acetaminophen 325 mg oral tablet 650 mg, By Mouth, Every 4 hours, (1-3), may give 325mg per patient preference and re-dose with 325mg within 4 hours, if needed. Patient should only receive a total of 650mg of Acetaminophen every 4 hours., # 50 tablet, Refills 0, Tot. Refills 0, Roxy... Start Date: 05/03/22 Status: Ordered Alcohol Wipes See Instructions, # 1 each, Refills 5, Tot. Refills 5, Maintenance, Use QID to test blood sugars, 03/13/22 11:04:00 EDT, Supply, 157, cm, 03/09/22 13:07:00 EDT, Height, 73.4, kg, 02/16/22 12:00:00 EDT, Dry Weight Start Date: 03/13/22 Status: Ordered docusate sodium 100 mg oral tablet = 100 mg, By Mouth, 2 times a day, # 20 tablet, 0 Refills, Maintenance, 05/03/22 4:07:00 EDT, Tablet, [facility]/pharmacy #[id number], Partial fill upon patient request if the prescription is for a schedule II opioid drug., 158.3, cm, 05/02/22 18:49:00 EDT, Height... Start Date: 05/03/22 Status: Ordered ferrous sulfate 325 mg oral [...] Date: 03/13/22 Stop Date: 09/09/22 Status: Ordered ibuprofen 800 mg oral tablet 800 mg, 1, tablet, By Mouth, Every 8 hours, (4-6), may give 400mg per patient preference and re-dose with 400mg within 8 hours, if needed. Patient should only receive a total of 800mg of Ibuprofen every 8 hours., # 50 tablet, Refills 0, Tot. Refills... Start Date: 05/03/22 Status: Ordered oxyCODONE 5 mg oral tablet 5 mg, 1, tablet, By Mouth, Every 3 hours, PRN, (7-10), # 7 tablet, Refills 0, Tot. Refills 0, Maintenance, Pain , Severe, 05/03/22 4:08:00 EDT, Route to Pharmacy Electronically, [facility]/pharmacy #[id number], Partial fill upon patient request if the prescription... Start Date: 05/03/22 Status: Ordered PNV By Mouth, Daily, 0 Refills, Maintenance, 03/09/22 13:26:00 EDT, Partial fill upon patient request if the prescription is for a schedule II opioid drug. Start Date: 03/09/22 Status: Ordered simethicone 80 mg oral tablet, chewable 80 mg, Chew, 3 times a day, PRN, # 36 tablet, Refills 0, Tot. Refills 0, Maintenance, Gas, 224:08:00 EDT, Route to Pharmacy Electronically, [facility]/pharmacy #[id number], Partial fill upon patient request if the prescription is for a schedule II opioid Start Date: 05/03/22 Status: Ordered Problem List Condition Effective Dates Status Health Status Inform ant Anxiety(Confirmed) Active COVID(Confirmed) 10/01/20 Active History of depression(Confirmed) Active Migraines(Confirmed) Active Social History Social History Type Response Smoking Status Never (less than 100 in lifetime) entered on: 03/09/22 Sex Care Team Personnel Name: Crissy Skinner MD Address: [address] [place] [address]
--- OUTSIDE RECORDS SUMMARY | 2023-02-02 09:31 | XMS_ITS | Continuity of Care Document ---
Author Name Unknown Organization [facility] ter Address [address] [place] [address]- Care Team Providers Care Ethnographic Materials Conservator Name Role Phone Crissy Skinner MD Primary Care Physician [phone] Encounter [facility] [place] Date(s): 01/10/21 - 01/10/[address] [address]- Discharge Disposition: A-D/C Home Attending Physician: Gale Ramos DO Admitting Physician: Gale Ramos DO Referring Physician: Gale Ramos DO Allergies, Adverse Reactions, Alerts No Known Medication [...] Refills, Maintenance, 12/19/20 14:17:00 EST, Tablet, [id number], Partial fill upon patient request if the prescription is for a schedule II opioid drug., 157, cm, 03/20/19 13:02:00 EDT,... Start Date: 12/19/20 Status: Ordered Vital Signs Most recent to oldest [Reference Range]: 1 Weight 53.7 kg (01/10/21 7:53 AM) Oxygen Saturation [94-100 %] 100 % (01/10/21 7:53 AM) Pulse Rate [55-90 bpm] 51 bpm *L* (01/10/21 7:53 AM) Blood Pressure [90-138/55-84 mm Hg] 145/ 83mm Hg *H* (01/10/21 7:53 AM) Respiratory Rate [16-30 br/min] 17 br/mi n (01/10/21 7:53 AM) Temperature [96.8-100.4 DegF] 98.0 DegF (01/10/21 7:53 AM) Blood pressure sites Arm, right (01/10/21 7:53 AM) Temperature Route Oral (01/10/21 7:53 AM) Social History Social History Type Response Smoking Status Never smoker; Tobacc o user in household: No entered on: 02/06/16 Sex
--- OUTSIDE RECORDS SUMMARY | 2023-02-02 09:31 | XMS_ITS | Continuity of Care Document ---
Author Name Unknown Organization [facility] ter Address [address] [place] [address]- Care Team Providers Care Manager Poker Name Role Phone Brody MONROE, Crissy Urbina Primary Care Physician Encounter [facility] [place] Date(s): 04/29/22 - 05/03/[address] [address] Discharge Disposition: A-D/C Home Attending Physician: Bernadette Solis MD Admitting Physician: Bernadette Solis MD Referring Physician: Bernadette Solis MD Allergies, Adverse Reactions, Alerts No Known Allergies [...] 0, Roxy... Start Date: 05/03/22 Status: Ordered Acetaminophen Tablet 650 mg, Tablet, By Mouth, (1-3), may give 325mg per patient preference and re- dose with 325mg within 4 hours, if needed. Patient should only receive a total of 650mg of Acetaminophen every 4 hours., 05/03/22 13:00:00 EDT Start Date: 05/03/22 Stop Date: 05/03/22 Status: Completed Alcohol Wipes See Instructions, # 1 each, [...] 0 Refills, Maintenance, 05/03/22 4:07:00 EDT, Tablet, [facility]/pharmacy #[id number], Partial fill upon patient [...] 05/03/22 4:08:00 EDT, Route to Pharmacy Electronically, [facility]/pharmacy #[id number], Partial fill upon patient request if the prescription... Start Date: 05/03/22 Status: Ordered OxyCODONE IR Tablet 5 mg, Tablet, By Mouth, Every 3 hours, PRN for Pain , Severe, (7-10), Routine, 05/01/22 8:17:00 EDT Start Date: 05/01/22 Stop Date: 05/03/22 Status: Discontinued PNV By Mouth, Daily, 0 Refills, Maintenance, 03/09/22 13:26:00 EDT, Partial fill upon patient request if the prescription is for a schedule II opioid drug. Start Date: 03/09/22 Status: Ordered simethicone 80 mg oral tablet, chewable 80 mg, Chew, 3 times a day, PRN, # 36 tablet, Refills 0, Tot. Refills 0, Maintenance, Gas, 224:08:00 EDT, Route to Pharmacy Electronically, [facility]/pharmacy #[id number], Partial fill upon patient request if the prescription is for a schedule II opioid drReji. Start Date: 05/03/22 Status: Ordered Problem List Condition Effective Dates Status Health Status Inform ant Anxiety(Confirmed) Active COVID(Confirmed) 10/01/20 Active History of depression(Confirmed) Active Migraines(Confirmed) Active Obese class I(Confirmed) Active Procedures Procedure Date Related Diagnosis Body Site Status delivery only; 04/30/22 C ompleted Vital Signs Most recent to oldest [Reference Range]: 1 2 3 Height 158.3 cm (05/03/22 8:00 AM) 158.3 cm (05/02/22 11:42 PM) 158.3 cm (05/02/22 3:15 PM) Weight 81.3 kg (04/29/22 11:24 PM) 81.3 kg (04/29/22 11:15 PM) 83.2 kg (04/29/22 8:29 PM) Oxygen Saturation [94-100 %] 99 % (05/02/22 3:15 PM) 98 % (05/02/22 12:00 AM) 98 % (05/01/22 12:00 AM) Pulse Rate [55-90 bpm] 80 bpm (05/03/22 8:00 AM) 74 bpm (05/02/22 11:42 PM) 72 bpm (05/02/22 3:15 PM) Body Mass Index [18.5-24.99] 32.44 *>HHI* (04/29/22 11:15 PM) Blood Pressure [90-138/55-84 mm Hg] 129/80mm Hg (05/03/22 8:00 AM) 118/72mm Hg (05/02/22 11:42 PM) 108/66mm Hg (05/02/22 3:15 PM) Respiratory Rate [16-30 br/min] 18 br/min (05/03/22 1:13 PM) 18 br/min (05/03/22 1:12 PM) 18 br/min (05/03/22 12:13 PM) Temperature [96.8-100.4 DegF] 98.1 DegF (05/03/22 8:00 AM) 97.8 DegF (05/02/22 11:42 PM) 98.2 DegF (05/02/22 3:15 PM) Mode of Delivery (Oxygen) Room air (05/01/22 12:00 AM) Room air (04/30/22 8:00 PM) Room air (04/30/22 8:27 AM) Blood pressure sites Arm, right (05/03/22 8:00 AM) Arm, right (04/30/22 4:30 PM) Arm, right (04/30/22 8:27 AM) Temperature Route Oral (05/03/22 8:00 AM) Oral (05/02/22 11:42 PM) Oral (05/02/22 3:15 PM) Dry Weight 81.3 kg (04/29/22 11:15 PM) Weight Obtained Via Patient/family stated (04/29/22 11:24 PM) Standing scale (04/29/22 8:29 PM) Social History Social History Type Response Smoking Status Never (less than 100 in lifetime) entered on: 03/09/22 Sex
--- OUTSIDE RECORDS SUMMARY | 2023-02-02 09:32 | XMS_ITS | Continuity of Care Document ---
Author Name Unknown Organization [facility] ter Address [address] [place] [address]- Care Team Providers Care Professor Of Education Name Role Phone Crissy Skinner MD Primary Care Physician Encounter [facility] [place] Date(s): 02/16/22 - 02/16/[address] [address] Discharge Disposition: A-D/C Home Attending Physician: Tano Moreno MD Admitting Physician: Tano Moreno MD Referring Physician: Tano Moreno MD Allergies, Adverse Reactions, Alerts No Known Medication Allergies Medications Tylenol 325 mg oral tablet 975 mg, Tablet, By Mouth, Every 6 hours, PRN for Pain , Mild, STAT, 02/16/22 12:32:00 EDT Start Date: 02/16/22 Stop Date: 02/16/22 Status: Discontinued Problem List Condition Effective Dates Status Health Status Inform ant Anxiety(Confirmed) Active COVID(Confirmed) 10/01/20 Active History of depression(Confirmed) Active Migraines(Confirmed) Active Vital Signs Most recent to oldest [Reference Range]: 1 2 Weight 73.4 kg (02/16/22 12:00 PM) Oxygen Saturation [94-100 %] 100 % (02/16/22 12:00 PM) Pulse Rate [55-90 bpm] 104 bpm *H* (02/16/22 12:00 PM) Blood Pressure [90-138/55-84 mm Hg] 124/ 72mm Hg (02/16/22 12:00 PM) Respiratory Rate [16-30 br/min] 18 br/mi n (02/16/22 1:40 PM) 18 br/min (02/16/22 12:00 PM) Temperature [96.8-100.4 DegF] 98.2 DegF (02/16/22 12:00 PM) Mode of Delivery (Oxygen) Room air (02/16/22 12:00 PM) Blood pressure sites Arm, left (02/16/22 12:00 PM) Temperature Route Oral (02/16/22 12:00 PM) Dry Weight 73.4 kg (02/16/22 12:00 PM) Weight Obtained Via Standing scale (02/16/22 12:00 PM) Dry Weight Obtained Via Standing scale (02/16/22 12:00 PM) Social History Social History Type Response Smoking Status Never smoker; Tobacc o user in household: No entered on: 02/06/16 Sex
--- OUTSIDE RECORDS SUMMARY | 2023-02-02 09:32 | XMS_ITS | Continuity of Care Document ---
Author Name Unknown Organization [facility] ter Address [address] [place] [address]- Care Team Providers Care Sewing Line Baler Name Role Phone Crissy Skinner MD Primary Care Physician [phone] Encounter [facility] [place] Date(s): 08/20/21 - 08/20/[address] [address]- Discharge Disposition: A-D/C Home Attending Physician: Bernadette [...] Refills, Maintenance, 12/19/20 14:17:00 EST, [facility]t, [id number], Partial fill upon patient request if the prescription is for a schedule II opioid drug., 157, cm, 03/20/19 13:02:00 EDT,... Start Date: 12/19/20 Status: Ordered Problem List Condition Effective Dates Status Health Status Inform ant Anxiety(Confirmed) Active History of depression(Confirmed) Active Migraines(Confirmed) Active Vital Signs Most recent to oldest [Reference Range]: 1 2 Height 156 cm (08/20/21 3:38 PM) Weight 51.9 kg (08/20/21 3:26 PM) Pulse Rate [55-90 bpm] 54 bpm *L* (08/20/21 3:38 PM) Blood Pressure [90-138/55-84 mm Hg] 127/ 76mm Hg (08/20/21 3:38 PM) Respiratory Rate [16-30 br/min] 128 br/m in *H* (08/20/21 3:38 PM) Temperature [96.8-100.4 DegF] 98.6 DegF (08/20/21 3:26 PM) Blood pressure sites Arm, right (08/20/21 3:38 PM) Temperature Route Oral (08/20/21 3:38 PM) Oral (08/20/21 3:26 PM) Dry Weight 51.9 kg (08/20/21 3:26 PM) Weight Obtained Via Standing scale (08/20/21 3:26 PM) Dry Weight Obtained Via Standing scale (08/20/21 3:26 PM) Social History Social History Type Response Smoking Status Never smoker; Tobacc o user in household: No entered on: 02/06/16 Sex
--- OUTSIDE RECORDS SUMMARY | 2023-02-02 09:32 | XMS_ITS | Continuity of Care Document ---
Author Name Unknown Organization [facility] Address Unknown Care Team Providers Care Press Operator Heavy Duty Name Role Phone Brody MONROE, Crissy Urbina Primary Care Physician Encounter [facility] [place] Date(s): 02/27/22 - 04/19/22 [facility] Attending Physician: Not on Staff, Attending MD Referring Physician: Mariel Smiley CNM Allergies, Adverse Reactions, Alerts No Known [...]
--- OUTSIDE RECORDS SUMMARY | 2023-02-02 09:32 | XMS_ITS | Continuity of Care Document ---
Author Name Unknown Organization [facility] Address [address] [place] [address]- Care Team Providers Care Grain Commodity Manager Name Role Phone Crissy Skinner MD Primary Care Physician Encounter [facility] [place] Date(s): 02/12/22 - 03/14/22 [facility] [address] [place] [address] Attending Physician: Palmira Garnica Admitting Physician: Palmira Garnica Referring Physician: AdmtrPalmira Allergies, Adverse Reactions, Alerts No Known Allergies Immunizations Given and Recorded Vaccine Date Status Refusal Reason tetanus/diphtheria/pertussis, acel(Tdap) 03/13/22 Given Medications Acetaminophen 0 Refills, Maintenance, 03/13/22 11:05:00 [...]
--- OUTSIDE RECORDS SUMMARY | 2023-02-02 09:32 | XMS_ITS | Continuity of Care Document ---
Author Name Unknown Organization [facility] Address Unknown Care Team Providers Care Strength And Conditioning Coach Name Role Phone Brody MONROE, Crissy Urbina Primary Care Physician [place] [facility] [place] [id number] Date(s): 03/13/22 - 04/19/22 [facility] Attending Physician: Not on Staff, Attending MD Referring Physician: Shantell Hair CNM Allergies, Adverse Reactions, Alerts No Known [...]
--- OUTSIDE RECORDS SUMMARY | 2023-02-02 09:32 | XMS_ITS | Continuity of Care Document ---
Author Name Unknown Organization [facility] Address [address] [place] [address]- Care Team Providers Care Folder Stitcher Operator Name Role Phone Brody MONROE, Crissy Urbina Primary Care Physician Encounter [facility] [place] Date(s): 01/10/21 - 02/15/[address] [address] Attending Physician: Not on Staff, Attending MD Referring Physician: Paty MONROE (OB), Roan Cox Allergies, Adverse Reactions, Alerts No Known Medication [...] Refills, Maintenance, 12/19/20 14:17:00 EST, Tablet, [id number], Partial fill upon patient request if the [...]
--- OUTSIDE RECORDS SUMMARY | 2023-02-02 09:32 | XMS_ITS | Continuity of Care Document ---
Author Name Unknown Organization [facility] Address [address] [place] [address]- Care Team Providers Care Chain Saw Operator Name Role Phone Crissy Skinner MD Primary Care Physician Encounter [facility] [place] Date(s): 01/29/22 - 03/14/22 [facility] [address] [place] [address] Attending Physician: Not on Staff, Attending MD Allergies, Adverse Reactions, Alerts No Known [...]
--- OUTSIDE RECORDS SUMMARY | 2023-02-02 09:32 | XMS_ITS | Continuity of Care Document ---
Author Name Unknown Organization [facility] ter Address [address] [place] [address]- Care Team Providers Care Programming Coordinator Name Role Phone Crissy Skinner MD Primary Care Physician Encounter [facility] [place] Date(s): 12/19/20 - 12/19/[address] [address]- Encounter Diagnosis Early stage of (Final) - 12/19/20 Discharge Disposition: A-D/C Home Attending Physician: Jody Tsang MD Admitting Physician: Jody Tsang MD Referring Physician: Not on Staff, Referring MD Allergies, Adverse Reactions, Alerts No Known [...] Refills, Maintenance, 12/19/20 14:17:00 EST, Tablet, [id number], Partial fill upon patient request if the prescription is for a schedule II opioid drug., 157, cm, 03/20/19 13:02:00 EDT,... Start Date: 12/19/20 Status: Ordered Vital Signs Most recent to oldest [Reference Range]: 1 2 3 Oxygen Saturation [94-100 %] 100 % (12/19/20 2:48 PM) 100 % (12/19/20 9:53 AM) 100 % (12/19/20 9:40 AM) Pulse Rate [55-90 bpm] 66 bpm (12/19/20 2:48 PM) 87 bpm (12/19/20 9:53 AM) 101 bpm *H* (12/19/20 9:40 AM) Blood Pressure [90-138/55-84 mm Hg] 121/85mm Hg (12/19/20 2:48 PM) 135/78mm Hg (12/19/20 9:53 AM) Respiratory Rate [16-30 br/min] 19 br/min (12/19/20 2:48 PM) 20 br/min (12/19/20 9:53 AM) Temperature [96.8-100.4 DegF] 97.8 DegF (12/19/20 2:48 PM) 97.2 DegF (12/19/20 9:53 AM) Liters per Minute 0 L/min (12/19/20 9:40 AM) Mode of Delivery (Oxygen) Room air (12/19/20 2:48 PM) Room air (12/19/20 9:53 AM) Room air (12/19/20 9:40 AM) Blood pressure sites Arm, right (12/19/20 2:48 PM) Arm, right (12/19/20 9:53 AM) Temperature Route Oral (12/19/20 2:48 PM) Oral (12/19/20 9:53 AM) Social History Social History Type Response Smoking Status Never smoker; Tobacc o user in household: No entered on: 02/06/16 Sex
--- OUTSIDE RECORDS SUMMARY | 2023-02-02 09:32 | XMS_ITS | Continuity of Care Document ---
Author Name Unknown Organization [facility] ter Address [address] [place] [address]- Care Team Providers Care Assistant Floor Covering Printer Name Role Phone Crissy Skinner MD Primary Care Physician [place] [facility] [place] Date(s): 01/19/22 - 01/19/[address] [address] Discharge Disposition: A-D/C Home Attending Physician: Gucci Newman MD Admitting Physician: Gucci Newman MD Referring Physician: Gucci Newman MD Allergies, Adverse Reactions, Alerts No Known Medication Allergies Medications No Known Medications Problem List Condition Effective Dates Status Health Status Inform ant Anxiety(Confirmed) Active COVID(Confirmed) 10/01/20 Active History of depression(Confirmed) Active Migraines(Confirmed) Active Vital Signs Most recent to oldest [Reference Range]: 1 Weight 71.3 kg (01/19/22 5:55 PM) Oxygen Saturation [94-100 %] 100 % (01/19/22 5:55 PM) Blood Pressure [90-138/55-84 mm Hg] 130/ 60mm Hg (01/19/22 5:55 PM) Temperature [96.8-100.4 DegF] 97.8 DegF (01/19/22 5:55 PM) Liters per Minute 18 L/min (01/19/22 5:55 PM) Mode of Delivery (Oxygen) Room air (01/19/22 5:55 PM) Blood pressure sites Arm, right (01/19/22 5:55 PM) Temperature Route Oral (01/19/22 5:55 PM) Dry Weight 71.3 kg (01/19/22 5:55 PM) Weight Obtained Via Standing scale (01/19/22 5:55 PM) Dry Weight Obtained Via Standing scale (01/19/22 5:55 PM) Social History Social History Type Response Smoking Status Never smoker; Tobacc o user in household: No entered on: 02/06/16 Sex
--- OUTSIDE RECORDS SUMMARY | 2023-02-02 09:32 | XMS_ITS | Continuity of Care Document ---
Author Name Unknown Organization [facility] Address [address] [place] [address], [address] [place] [address]- Care Team Providers Care Pain Management Nurse Name Role Phone Brody MONROE, Crissy Urbina Primary Care Physician Encounter [facility] [place] Date(s): 09/11/21 - 10/11/21 [facility] [address] [facility], 4th Floor [place], [place] [address] Allergies, Adverse Reactions, Alerts No Known Medication [...] 0 Refills, Maintenance, 12/19/20 14:17:00 EST, Tablet, [facility]/pharmacy #[id number], Partial fill upon patient request if the [...]
--- OUTSIDE RECORDS SUMMARY | 2023-02-02 09:32 | XMS_ITS | Continuity of Care Document ---
Author Name Unknown Organization [facility] Address [address] [address]- Care Team Providers Care Manager General Name Role Phone Brody MONROE, Crissy Urbina Primary Care Physician Encounter [facility] [place] Date(s): 05/01/22 - 06/24/[address] [address] Attending Physician: Not on Staff, Attending MD Referring Physician: Bonita Chávez CNM Allergies, Adverse [...] 0 Refills, Maintenance, 05/03/22 4:07:00 EDT, Tablet, [facility]/pharmacy #[id number], Partial fill upon patient request if the [...] 05/03/22 4:08:00 EDT, Route to Pharmacy Electronically, [facility]/pharmacy #[id number], Partial fill upon patient [...] Gas, 224:08:00 EDT, Route to Pharmacy Electronically, [facility]/pharmacy #[id number], Partial fill upon patient [...]
--- OUTSIDE RECORDS SUMMARY | 2023-02-02 09:32 | XMS_ITS | Continuity of Care Document ---
Author Name Unknown Organization [facility] Address [address] [address]- Care Team Providers Care Bag Bundler Name Role Phone Crissy Skinner MD Primary Care Physician [phone] En[place] [facility] [place] Date(s): 05/29/22 - 06/28/[address] [address] Allergies, Adverse Reactions, Alerts No Known Allergies [...] 0 Refills, Maintenance, 05/03/22 4:07:00 EDT, Tablet, [facility]/pharmacy #[id number], Partial fill upon [...] 05/03/22 4:08:00 EDT, Route to Pharmacy Electronically, [facility]/pharmacy #[id number], Partial fill upon [...] Refills 0, Tot. Refills 0, Maintenance, Gas, :08:00 EDT, Route to Pharmacy Electronically, [facility]/pharmacy #[id number], Partial fill upon [...] Team Personnel Name: Crissy Skinner MD Address: [address] [place] [address]
--- OUTSIDE RECORDS SUMMARY | 2023-02-02 09:32 | XMS_ITS | Continuity of Care Document ---
Author Name Unknown Organization [facility] ter Address [address] [place] [address]- Care Team Providers Care Claims Associate Name Role Phone Crissy Skinner MD Primary Care Physician [phone] [place] [facility] [place] - 09/25/[address] [address] Discharge Disposition: A-D/C Home Attending Physician: Mane Redman DO Admitting Physician: Mane Redman DO Referring Physician: Mane Redman DO Allergies, Adverse Reactions, Alerts No Known [...] Refills, Maintenance, 12/19/20 14:17:00 EST, Tablet, [id number], Partial fill upon patient request if the prescription is for a schedule II opioid drug., 157, cm, 03/20/19 13:02:00 EDT,... Start Date: 12/19/20 Status: Ordered Problem List Condition Effective Dates Status Health Status Inform ant Anxiety(Confirmed) Active History of depression(Confirmed) Active Migraines(Confirmed) Active Vital Signs Most recent to oldest [Reference Range]: 1 Oxygen Saturation [94-100 %] 100 % (09/25/21 11:53 AM) Blood Pressure [90-138/55-84 mm Hg] 133/ 81mm Hg (09/25/21 11:53 AM) Respiratory Rate [16-30 br/min] 18 br/mi n (09/25/21 11:53 AM) Temperature [96.8-100.4 DegF] 98.1 DegF (09/25/21 11:53 AM) Mode of Delivery (Oxygen) Room air (09/25/21 11:53 AM) Blood pressure sites Arm, left (09/25/21 11:53 AM) Temperature Route Oral (09/25/21 11:53 AM) Dry Weight 52.9 kg (09/25/21 11:53 AM) Dry Weight Obtained Via Standing scale (09/25/21 11:53 AM) Social History Social History Type Response Smoking Status Never smoker; Tobacc o user in household: No entered on: 02/06/16 Sex
--- OUTSIDE RECORDS SUMMARY | 2023-02-02 09:32 | XMS_ITS | Continuity of Care Document ---
Author Name Unknown Organization [facility] ter Address [address] [place] [id number]- Care Team Providers Care Compounding Assistant Name Role Phone Crissy Skinner MD Primary Care Physician [phone] [place] [facility] [place] 05/01/[address] [id number] Attending Physician: Tano Moreno MD Referring Physician: Lm Crockett CNM Allergies, Adverse Reactions, Alerts No Known [...]
--- OUTSIDE RECORDS SUMMARY | 2023-02-02 09:32 | XMS_ITS | Continuity of Care Document ---
Author Name Unknown Organization [facility] Address [address] [place] [id number]- Care Team Providers Care Asphalt Surface Heater Operator Name Role Phone Brody MONROE, Crissy Urbina Primary Care Physician [phone] [place] [facility] [place] - 01/22/[address] [address] Allergies, Adverse Reactions, Alerts No Known Medication [...] 0 Refills, Maintenance, 12/19/20 14:17:00 EST, Tablet, [facility]/pharmacy #[id number], Partial fill upon patient request if the [...]
--- OUTSIDE RECORDS SUMMARY | 2023-02-02 09:32 | XMS_ITS | Continuity of Care Document ---
Author Name Unknown Organization [facility] Address Unknown Care Team Providers Care Travel Director Name Role Phone Crissy Skinner MD Primary Care Physician [place] [facility] [id number] Date(s): 04/02/22 - 05/02/22 [facility] Allergies, Adverse Reactions, Alerts No Known [...]
--- OUTSIDE RECORDS SUMMARY | 2023-02-02 09:32 | XMS_ITS | Continuity of Care Document ---
Author Name Unknown Organization [facility] Address [address] [place] [id number]- Care Team Providers Care Treating And Pumping Supervisor Name Role Phone Crissy Skinner MD Primary Care Physician [phone] [place] [facility] [place]/15/22 - 07/15/[address] [address] Attending Physician: Palmira Garnica Admitting Physician: AdmPalmira velez Referring Physician: AdmtrPalmira Allergies, Adverse Reactions, Alerts [...] 0 Refills, Maintenance, 05/03/22 4:07:00 EDT, Tablet, [facility]/pharmacy #[id number], Partial fill upon patient request if [...] 05/03/22 4:08:00 EDT, Route to Pharmacy Electronically, [facility]/pharmacy #[id number], Partial fill upon patient request if [...] Gas, 224:08:00 EDT, Route to Pharmacy Electronically, [facility]/pharmacy #[id number], Partial fill upon patient request if the prescription is for a schedule II opioid dr... Start Date: 05/03/22 Status: Ordered Problem List Condition Effective Dates Status Health Status Inform ant Anxiety(Confirmed) Active COVID(Confirmed) 10/01/20 Active History of depression(Confirmed) Active Migraines(Confirmed) Active Social History Social History Type Response Smoking Status Never (less than 100 in lifetime) entered on: 03/09/22 Sex Care Team Personnel Name: Crissy Skinner MD Address: [address] [place] [address]
[2023-02-02 10:25] VITALS: BP 126/82; PULSE 68; RESP 16; TEMP 36.3; O2SAT 98
--- NOTE | 2023-02-02 10:37 | ED.HA ---
HPI - Headache General Chief Complaint: Headache Stated Complaint: Migraine Time Seen by Provider: 02/02/23 10:23 Source: patient Mode of arrival: ambulatory Limitations: no limitations History of Present Illness HPI Narrative: 22-year-old female with history of migraine headaches who presents emergency department for evaluation of persistent headache. She states that her headache started 3 days prior. She cannot recall what she was doing the time the headache but she states that came on suddenly. She describes the pain is a throbbing pulsating sensation that starts at the back of the left side of her head in the occipital area and radiates to her left forehead. She states the headache is been constant since onset but waxes and wanes in intensity. She states the pain is been as bad as 10/10 at time of evaluation her headache is 10/10. She has had associated nausea with 1 or 2 episodes of vomiting per day. The patient does have a history of migraines and normally takes Fioricet. She states she has been taking Fioricet with no relief of her pain. She has also had significant photophobia. She denied fever, chills, rhinorrhea, sore throat, cough, chest pain, shortness of breath, numbness or weakness. Related Data Previous Rx's Medication Instructions Recorded acetaminophen 500 mg tablet 500 mg PO Q6H PRN pain #14 tabs 01/02/21 (Tylenol Extra Strength) vitamin with calcium 1 tab PO DAILY #30 tabs 09/11/21 no.72-iron 27 mg-folic acid 1 mg tablet ( Vitamins Plus Low Iron) doxylamine succinate 25 mg tablet 25 mg PO BEDTIME PRN sleep #30 tabs 12/10/21 (Unisom (doxylamine)) ferrous sulfate 324 mg (65 mg 324 mg PO TID #180 tabs 01/29/22 iron) tablet,delayed release blood sugar diagnostic (FreeStyle #150 ea 02/11/22 Lite Strips) blood-glucose meter (FreeStyle #1 ea 02/11/22 [place] Lite kit) lancets 28 gauge (FreeStyle #100 ea 02/11/22 Lancets) metoclopramide HCl 10 mg tablet 10 mg PO Q6H PRN nausea and 02/02/23 (Reglan) vomiting #14 tabs Allergies Allergy/AdvReac Type Severity Reaction Status Date / Time No Known Allergies Allergy Verified 02/02/23 09:05 [No Known Allergies*] Review of Systems Review of Systems: Yes all other systems are reviewed and are negative [facility] Past Medical History [facility] Narrative: Social history: She denies tobacco, alcohol use, occasionally smokes marijuana. Medical History Complete GERD (gastroesophageal reflux disease) Migraine Missed with demise before 20 completed weeks of gestation No known health problems Family History Family History Mother Arthritis Lupus (systemic lupus erythematosus) History of depression Brother Autism disorder Social History Social History Household Members: Family Alcohol intake: never Patient Tobacco Use Status: Never used Tobacco Smoked in Last 30 Days: Yes Use of substances other than those prescribed or required for medical reasons: No Substance Use Type: Marijuana Trauma History: current partner a few mos ago. Special peyton needs: No Agree to transfusion: Yes Advance Directives: No Advance Directives Information Provided: Yes Patient : No Physical Exam Vital Signs: Vital Signs: Last Vital Signs Temp 97.3 F 02/02/23 10:25 Pulse 64 02/02/23 11:58 Resp 14 02/02/23 11:58 BP 114/62 02/02/23 11:58 Pulse Ox 99 02/02/23 11:58 O2 Del Method Room Air 02/02/23 11:58 BMI result Body Mass Index 33.6 Const: General: cooperative and no acute distress Orientation/consciousness: oriented to person and oriented to place Limitations: no limitations HEENT: Head: Yes normal to inspection, Yes normocephalic and Yes atraumatic Ears: external ears normal General nose exam: Normal external nose present Face and sinus: Yes normal facial exam Mouth: Normal oral and palatal mucosa present Throat: Yes posterior oropharynx normal Eyes: General: appearance normal, both eyes and all related structures Pupils: Equal, round and reactive pupils present Neck: Neck: Yes normal visual inspection, Yes no lymphadenopathy, Yes trachea midline and Yes supple Chest: Chest palpation & inspection: normal inspection of the chest and normal palpation of entire chest wall Resp: Effort & Inspection: normal respiratory effort and able to speak in complete sentences Auscultation: clear to auscultation bilaterally Cardio: Rate: regular rate Rhythm: regular rhythm Heart sounds: S1 normal heart sound present, S2 normal heart sound present and no murmurs GI: Inspection: Yes normal to inspection Palpation (GI): Soft to palpation, nontender and no guarding Auscultation: normal bowel sounds : General: Yes no CVA tenderness Back/Spine/Pelvis: Back: no CVA tenderness Skin: General skin exam: no rashes or lesions noted Neuro: General: oriented to person and oriented to place Cranial nerves: Yes CN's II-XII intact bilaterally and Yes Equal, round and reactive pupils present Cognition (Neuro): normal cognition Motor exam (neuro): 5/5 motor strength present throughout Extrem: General: Yes normal to inspection Psych: Appearance: grossly normal Speech and movement: Normal speech and movement present Affect: normal affect Attitude: cooperative Medications Administered Discontinued Medications Generic Name Dose Route Start Last Admin Trade Name Freq PRN Reason Stop Dose Admin Diphenhydramine HCl 50 mg 02/02/23 10:35 02/02/23 11:00 Diphenhydramine Hcl 50 Mg/Ml Vial IVPUSH 02/02/23 10:36 50 mg ONCE STA Administration Sodium Chloride 1,000 mls @ 999 mls/hr 02/02/23 10:35 02/02/23 11:00 Ns IV 02/02/23 11:35 999 mls/hr .Q1H1M STA Administration Ketorolac Tromethamine 15 mg 02/02/23 10:35 02/02/23 11:00 Ketorolac Tromethamine 15 Mg/Ml Vial IVPUSH 02/02/23 10:36 15 mg ONCE STA Administration Metoclopramide HCl 10 mg 02/02/23 10:35 02/02/23 11:01 Metoclopramide Hcl 10 Mg/2 Ml Vial IVPUSH 02/02/23 10:36 10 mg ONCE STA Administration Medical Decision Making Medical Decision Making MDM Narrative: 22-year-old female who presents emergency department for evaluation of headache x3 days. The headache did come on suddenly and has been constant but waxes and wanes in intensity. Headache is on the left side of her head and is a throbbing sensation associated with photophobia, nausea and vomiting. She has had no numbness or weakness. She does have a history of migraine headaches and has been taking your set with no relief for pain. The patient's vital signs were unremarkable. Physical examination was also unremarkable. I ordered a urine test which was negative. Urinalysis was also negative. 1243: Patient was treated with Reglan 10 mg IV, Benadryl 50 mg IV, Toradol 15 mg IV. She also received normal saline x1 L. the patient is feeling significantly better and she states that her headache is completely resolved. Patient will be discharged home and prescribed the migraine regimen of Reglan 10 mg, Benadryl 50 mg Excedrin migraine 2 pills orally every 6 hours as needed for headache. She was given printed and verbal instructions and discharged home. Differential Diagnosis Differential diagnosis includes but is not limited to subarachnoid hemorrhage, aneurysm bleed, migraine headache, nonspecific headache Lab Data MDM Lab Attestation statement: I reviewed the patient's lab results. Labs: Lab Results 02/02/23 02/02/23 Range/Units 10:42 10:42 Urine Color Yellow Urine Appearance Clear Urine pH 7.5 (5.0-9.0) Ur Specific [place] 1.020 (1.005-1.025) Urine Protein Negative (Neg-Trace) mg/dL Urine Glucose (UA) Negative (Negative) mg/dL Urine Ketones Negative (Negative) mg/dL Urine Blood Negative (Negative) Urine Nitrite Negative (Negative) Ur Leukocyte Esterase Negative (Negative) Urine RBC 0-2 (0-2) /HPF Urine WBC 0-5 (0-5) /HPF Ur Squamous Epith Cells 6-10 (0-2) /HPF Urine Bacteria None Seen (None Seen) Hyaline Casts 0-2 (0-2) /LPF Urine Test NEGATIVE (NEGATIVE) Discharge Plan Discharge Clinical Impression: Acute migraine Patient Disposition: Home, Self-Care Instructions: Migraine Headache (ED) Additional Instructions: Urinalysis was negative. Urine test was negative. Your symptoms are consistent with a migraine. I want you to take the following 3 medications together every 6 hours as needed for headache, nausea or vomiting. Reglan (metoclopramide) in 10 mg, 1 pill Benadryl 25 mg, 2 pills Excedrin migraine, 2 pills. After you take these medications, lie down in a dark quiet room and try to fall asleep. These medications will make you sleepy, do not drive or work after taking these medications. Follow-up with your doctor in 2 days. Please return to the emergency department if your symptoms get worse or if you develop any symptoms that are concerning to you. Prescriptions: New metoclopramide HCl [Reglan] 10 mg tablet 10 mg PO Q6H PRN (Reason: nausea and vomiting) Qty: 14 0RF No Action (DME) lancets [FreeStyle Lancets] 28 gauge misc See Rx Instructions .MEDSUPPLY Qty: 100 6RF Rx Instructions: four times as day (DME) blood-glucose meter [FreeStyle [place] Lite] Kit See Rx Instructions .MEDSUPPLY Qty: 1 0RF Rx Instructions: four times a day (DME) FreeStyle Lite Strips Strip See Rx Instructions .MEDSUPPLY Qty: 150 6RF Rx Instructions: four times a day acetaminophen [Tylenol Extra Strength] 500 mg tablet 500 mg PO Q6H PRN (Reason: pain) Qty: 14 0RF Unisom (doxylamine) 25 mg tablet 25 mg PO BEDTIME PRN (Reason: sleep) Qty: 30 3RF ferrous sulfate 324 mg (65 mg iron) tablet,delayed release (DR/EC) 324 mg PO TID Qty: 180 4RF Vitamin Plus Low Iron 27 mg iron- 1 mg tablet 1 tab PO DAILY Qty: 30 11RF
[2023-02-02] MEDS: 0.9 % Sodium Chloride 1,000 ML 999 ML IV (11:00)
[2023-02-02] MEDS: diphenhydrAMINE HCL 50 MG/ML VIAL IVPUSH (11:00)
[2023-02-02] MEDS: Ketorolac Tromethamine 15 MG/ML VIAL IVPUSH (11:00)
[2023-02-02] MEDS: Metoclopramide HCl 10 MG/2 ML VIAL IVPUSH (11:01)
[2023-02-02 11:02] LABS: Appearance Urine Clear; Color Urine Yellow; Glucose Urine UA Negative (Negative); Leukocyte Esterase Urine Negative (Negative); Nitrite Urine Negative (Negative); PH 7.5 (5.0-9.0); Urine Blood Negative (Negative); Urine Ketones Negative (Negative); Urine Protein Negative (Neg-Trace)
[2023-02-02 11:07] LABS: Bacteria Urine None Seen (None Seen); Hyaline Casts Urine 0-2 /LPF (0-2); RBC Urine 0-2 /HPF (0-2); UPreg QC Valid YES; Urine Pregnancy NEGATIVE (NEGATIVE); WBC Urine 0-5 /HPF (0-5)
[2023-02-02 11:58] VITALS: BP 114/62; PULSE 64; RESP 14; O2SAT 99
== END 2023-02-02 13:03 | disposition home or self-care (01) ==
PROVIDERS: Emergency Provider Emergency Medicine Emergency Medical Services
DX: G43.909 Migraine, unspecified, not intractable, without status migrainosus (principal); Z79.899 Other long term (current) drug therapy
CPT/HCPCS: 81001; 81025; 96361; 96374; 96375; 99284; J1200; J1885; J2765

== ENCOUNTER 2024-03-30 17:02 | Emergency (ER) | payer OTHER, SELFPAY ==
--- NOTE | 2024-03-30 17:03 | ECG_ITS ---
Test Reason : cp Blood Pressure : / mmHG Vent. Rate : 062 BPM Atrial Rate : 062 BPM P-R Int : 154 ms QRS Dur : 076 ms QT Int : 374 ms P-R-T Axes : 015 032 004 degrees QTc Int : 379 ms Sinus rhythm with Premature ventricular complexes Abnormal ECG When compared with ECG of 11-MAR-2020 12:47, Premature ventricular complexes present Referred By: Generic ED Physician Electronically Signed By:KYLAH BAILEY
[2024-03-30 17:31] VITALS: BP 138/85; PULSE 62; RESP 16; TEMP 36.8; O2SAT 99; BMI 31.6
--- NOTE | 2024-03-30 17:31 | ED_ITS ---
HPI - General Adult General Chief complaint: Chest Pain Stated complaint: chest pain Related Data Previous Rx's ?Medication ?Instructions ?Recorded acetaminophen 500 mg tablet 500 mg PO Q6H PRN pain #14 tabs 01/02/21 (Tylenol Extra Strength) vitamin with calcium 1 tab PO DAILY #30 tabs 09/11/21 no.72-iron 27 mg-folic acid 1 mg tablet ( Vitamins Plus Low Iron) doxylamine succinate 25 mg tablet 25 mg PO BEDTIME PRN sleep #30 tabs 12/10/21 (Unisom (doxylamine)) ferrous sulfate 324 mg (65 mg 324 mg PO TID #180 tabs 01/29/22 iron) tablet,delayed release blood sugar diagnostic (FreeStyle #150 ea 02/11/22 Lite Strips) blood-glucose meter (FreeStyle #1 ea 02/11/22 [place] Lite kit) lancets 28 gauge (FreeStyle #100 ea 02/11/22 Lancets) metoclopramide HCl 10 mg tablet 10 mg PO Q6H PRN nausea and 02/02/23 (Reglan) vomiting #14 tabs Allergies Allergy/AdvReac Type Severity Reaction Status Date / Time No Known Allergies Allergy Verified 03/30/24 17:33 [No Known Allergies*] [facility] Past Medical History Medical History Complete GERD (gastroesophageal reflux disease) Migraine Missed with demise before 20 completed weeks of gestation No known health problems Family History Family History Mother Arthritis Lupus (systemic lupus erythematosus) History of depression Brother Autism disorder Social History Social History Household Members: Family Alcohol intake: never Patient Tobacco Use Status: Never used Tobacco Substance Use Type: Marijuana Trauma History: current partner a few mos ago. Special peyton needs: No Agree to transfusion: Yes Advance Directives: No Advance Directives Information Provided: No Physical Exam ED Vital Signs: BMI result Body Mass Index 31.6 Course Course Course Narrative: This is an RME done by DOMENICO Auguste: Additional HPI, ROS, PE not included below will be deferred to primary provider. 24 yo female pmh GDM, migraine, GERD, presents with very sharp chest pain since Wednesday on the left side and sob as well as palpitations. States it became unbearable today at work. Rates the pain 7.5/10 currently. Also states she notices brown/black phlegm. Denies recent travel and is not on control. Former marijuana smoker but states she stopped 1 month ago. Appearance: Alert.? Oriented X3.? No acute cardiopulmonary distress distress.? Head: Normocephalic, atraumatic, no step-offs or deformities Neck: Normal inspection.? Neck supple.? CVS: Pulses normal.? Respiratory: No respiratory distress.? Abdomen: Soft and nontender.? Skin: ? Normal skin color. Extremities: 5/5 strength to bilateral upper and lower extremities Neuro: Oriented X 3.? No motor deficit.? No sensory deficit. Medical Decision Making Lab Data 03/30/24 17:44 03/30/24 17:44 Labs: Lab Results 03/30/24 Range/Units 17:44 WBC 12.7 H (4.8-10.8) X10*3/uL RBC 4.35 D (4.20-5.50) X10*6/uL Hgb 12.8 D (12.0-16.0) g/dl Hct 37.8 D (37.0-47.0) % MCV 86.9 (80.0-98.0) fL MCH 29.4 (27.0-33.0) pg MCHC 33.9 (31.0-35.0) g/dl RDW 12.8 (11.0-16.0) % Plt Count 248 (160-400) X10*3/uL MPV 9.4 (9.4-12.3) fL Immature Gran % (Auto) 0.6 H (0.0-0.4) % Neut % (Auto) 60.9 (45-73) % Lymph % (Auto) 30.6 (20-40) % [place] % (Auto) 6.4 (2-11) % Eos % (Auto) 1.3 (0-4) % Baso % (Auto) 0.2 (0-2) % Lymph # (Auto) 3.9 (1.2-4.9) X10*3/uL [place] # (Auto) 0.8 (0.1-1.2) X10*3/uL Eos # (Auto) 0.2 (0.0-0.4) X10*3/uL Baso # (Auto) 0.0 (0.0-0.2) X10*3/uL Abs Immat Gran (auto) 0.07 H (0.00-0.03) X10*3/uL Absolute Neuts (auto) 7.7 (2.0-8.3) x10*3/uL Absolute Nucleated RBC 0.000 (0.0-0.012) X10*3/uL Nucleated RBC % (auto) 0.0 (0.0-0.2) /100WBC Sodium 141 (135-145) mmol/L Potassium 3.8 (3.3-5.1) mmol/L Chloride 108 (96-108) mmol/L Carbon Dioxide 23 (22-29) mmol/L Anion Gap 14 (12-20) BUN 10 (9-16) mg/dL Creatinine 0.74 (0.5-1.4) mg/dL Estim Creat Clear Calc 108.3 Estimated GFR > 60 Random Glucose 82 (60-115) mg/dL Calcium 9.8 (8.4-10.2) mg/dL Total Bilirubin 0.4 (0.0-1.0) mg/dL AST 23 (5-31) U/L ALT 20 (0-31) U/L Alkaline Phosphatase 46 (39-117) U/L Troponin I High Sens < 2.7 (<3.5-17.0) ng/L Total Protein 7.3 (6.5-8.0) g/dL Albumin 4.0 (3.5-5.0) g/dL Influenza Type A (PCR) NEGATIVE (Negative) Influenza Type B (PCR) NEGATIVE (Negative) RSV RNA Qual (PCR) NEGATIVE (Negative) SARS-CoV-2 RNA (RT-PCR) NEGATIVE (Negative) Discharge Plan Discharge Clinical Impression: Eloped from emergency department Patient Disposition: Left W/O Completing Treatment Prescriptions: No Action (DME) lancets [FreeStyle Lancets] 28 gauge misc See Rx Instructions .MEDSUPPLY Qty: 100 6RF Rx Instructions: four times as day (DME) blood-glucose meter [FreeStyle [place] Lite] Kit See Rx Instructions .MEDSUPPLY Qty: 1 0RF Rx Instructions: four times a day (DME) FreeStyle Lite Strips Strip See Rx Instructions .MEDSUPPLY Qty: 150 6RF Rx Instructions: four times a day acetaminophen [Tylenol Extra Strength] 500 mg tablet 500 mg PO Q6H PRN (Reason: pain) Qty: 14 0RF metoclopramide HCl [Reglan] 10 mg tablet 10 mg PO Q6H PRN (Reason: nausea and vomiting) Qty: 14 0RF Unisom (doxylamine) 25 mg tablet 25 mg PO BEDTIME PRN (Reason: sleep) Qty: 30 3RF ferrous sulfate 324 mg (65 mg iron) tablet,delayed release (DR/EC) 324 mg PO TID Qty: 180 4RF Vitamin Plus Low Iron 27 mg iron- 1 mg tablet 1 tab PO DAILY Qty: 30 11RF Discharge Date/Time: 03/31/24 01:03
[2024-03-30 17:54] LABS: MANUAL DIFF FLAG NO
[2024-03-30 18:09] LABS: Alanine Aminotransferase 20 U/L (0-31); Alkaline Phosphatase 46 U/L (39-117); Anion Gap 14 (12-20); Aspartate Amino Transferase 23 U/L (5-31); Bilirubin Total 0.4 mg/dL (0.0-1.0); Blood Urea Nitrogen 10 mg/dL (9-16); Calcium 9.8 mg/dL (8.4-10.2); Carbon Dioxide 23 mmol/L (22-29); Chloride 108 mmol/L (96-108); Creatinine Clr Calc Pharmacy 108.3; Estimated Glomerular Filt Rate > 60; Glucose Random 82 mg/dL (60-115); Potassium 3.8 mmol/L (3.3-5.1); Sodium 141 mmol/L (135-145); Total Protein 7.3 g/dL (6.5-8.0)
[2024-03-30 18:15] LABS: Basophils Percent Auto 0.2 % (0-2); Eosinophils Absolute Auto 0.2 X10*3/uL (0.0-0.4); Eosinophils Percent Auto 1.3 % (0-4); Hematocrit 37.8 % (37.0-47.0); Hemoglobin 12.8 g/dl (12.0-16.0); Imm Gran Abs Auto 0.07 X10*3/uL (0.00-0.03); Imm Gran Pct Auto 0.6 % (0.0-0.4); Lymphocytes Absolute Auto 3.9 X10*3/uL (1.2-4.9); Lymphocytes Percent Auto 30.6 % (20-40); Mean Corpuscular HGB Conc 33.9 g/dl (31.0-35.0); Mean Corpuscular Hemoglobin 29.4 pg (27.0-33.0); Mean Corpuscular Volume 86.9 fL (80.0-98.0); Mean Platelet Volume 9.4 fL (9.4-12.3); Monocytes Absolute Auto 0.8 X10*3/uL (0.1-1.2); Monocytes Percent Auto 6.4 % (2-11); Neutrophils Absolute Auto 7.7 x10*3/uL (2.0-8.3); Neutrophils Percent Auto 60.9 % (45-73); Platelet Count 248 X10*3/uL (160-400); Red Blood Count 4.35 X10*6/uL (4.20-5.50); Red Cell Distribution Width 12.8 % (11.0-16.0); White Blood Count 12.7 X10*3/uL (4.8-10.8)
[2024-03-30 18:20] LABS: Troponin-I High Sensitivity < 2.7 ng/L (<3.5-17.0)
[2024-03-30 18:32] LABS: Influenza A PCR NEGATIVE (Negative); Influenza B PCR NEGATIVE (Negative); Resp Syncy Virus RNA Qual PCR NEGATIVE (Negative); SARS COV2 PCR INHOUSE NEGATIVE (Negative)
== END 2024-03-31 01:03 | disposition left against medical advice (07) ==
PROVIDERS: Emergency Provider Emergency Medicine
DX: R07.9 Chest pain, unspecified (principal)
CPT/HCPCS: 0241U; 80053; 84484; 85025; 93005; 99283

== ENCOUNTER → 2024-03-30 17:03 | Outpatient (BNV) | payer OTHER, SELFPAY | PROVIDERS: Emergency Provider Emergency Medicine; Visit Provider Internal Medicine | DX: R94.31 Abnormal electrocardiogram [ECG] [EKG] (principal); R07.9 Chest pain, unspecified | CPT/HCPCS: 93010 ==

== ENCOUNTER 2024-07-17 08:17 | Emergency (ER) | payer OTHER, SELFPAY ==
--- NOTE | 2024-07-17 | ECG_ITS ---
Test Reason : EPIGASTRIC PAIN Blood Pressure : / mmHG Vent. Rate : 054 BPM Atrial Rate : 054 BPM P-R Int : 152 ms QRS Dur : 094 ms QT Int : 406 ms P-R-T Axes : 014 035 014 degrees QTc Int : 385 ms Sinus bradycardia Otherwise normal ECG When compared with ECG of 30-MAR-2024 17:01, Premature ventricular complexes are no longer Present Referred By: Generic ED Physician Electronically Signed By:MARBELLA NOEL
[2024-07-17 08:18] VITALS: BP 90/60; PULSE 62; RESP 20; TEMP 36.4; O2SAT 100
--- NOTE | 2024-07-17 08:34 | ED.GENADULT ---
HPI - General Adult General Chief complaint: General Medical Stated complaint: Stomach and Chest Pain Time Seen by Provider: 07/17/24 08:27 Source: patient Mode of arrival: ambulatory Limitations: no limitations History of Present Illness HPI narrative: 24 years old female presented with multiple complaints which including right-sided abdominal pain once a complaining of chest pain the abdominal pain started this morning. Chest pain yesterday. No exertional symptoms Onset (ago): hour(s) (8) Location: abdomen Radiation: non-radiation Severity: moderate Severity scale (1-10): 4 Quality: burning and aching Pain Consistency: constant Exacerbating factors: none Associated symptoms: denies other symptoms Related Data Previous Rx's ?Medication ?Instructions ?Recorded acetaminophen 500 mg tablet 500 mg PO Q6H PRN pain #14 tabs 01/02/21 (Tylenol Extra Strength) vitamin with calcium 1 tab PO DAILY #30 tabs 09/11/21 no.72-iron 27 mg-folic acid 1 mg tablet ( Vitamins Plus Low Iron) doxylamine succinate 25 mg tablet 25 mg PO BEDTIME PRN sleep #30 tabs 12/10/21 (Unisom (doxylamine)) ferrous sulfate 324 mg (65 mg 324 mg PO TID #180 tabs 01/29/22 iron) tablet,delayed release blood sugar diagnostic (FreeStyle #150 ea 02/11/22 Lite Strips) blood-glucose meter (FreeStyle #1 ea 02/11/22 [place] Lite kit) lancets 28 gauge (FreeStyle #100 ea 02/11/22 Lancets) metoclopramide HCl 10 mg tablet 10 mg PO Q6H PRN nausea and 02/02/23 (Reglan) vomiting #14 tabs ibuprofen 800 mg tablet 800 mg PO TID PRN pain #20 tabs 07/17/24 Allergies Allergy/AdvReac Type Severity Reaction Status Date / Time No Known Allergies Allergy Verified 07/17/24 08:22 [No Known Allergies*] Review of Systems Cardiovascular: Cardiovascular: Reports no additional cardiovascular complaints Respiratory: Respiratory: Reports no additional respiratory complaints [facility] Past Medical History [facility] Narrative: History of bradycardia, history of migraines ,hx of GERD Medical History Complete Missed with demise before 20 completed weeks of gestation GERD (gastroesophageal reflux disease) Migraine No known health problems Family History Family History Mother Arthritis Lupus (systemic lupus erythematosus) History of depression Brother Autism disorder Social History Social History Household Members: Family Alcohol intake: never Patient Tobacco Use Status: Never used Tobacco Smoked in Last 30 Days: No Use of substances other than those prescribed or required for medical reasons: No Substance Use Type: Marijuana Trauma History: current partner a few mos ago. Special peyton needs: No Agree to transfusion: Yes Advance Directives: No Advance Directives Information Provided: Yes Do you have a plan to hurt others: No Plan Patient : No Physical Exam ED Vital Signs: Vital Signs - 24 hr 07/17/24 08:18 07/17/24 11:09 07/17/24 11:10 Temperature 97.6 F 98.3 F 98.3 F Pulse Rate 62 64 64 Respiratory Rate 20 16 16 Blood Pressure 90/60 112/58 L 112/58 L Pulse Oximetry 100 99 99 Oxygen Delivery Method Room Air Room Air Room Air BMI result Body Mass Index 30.0 Const General: cooperative, comfortable and no acute distress Nutritional Appearance: average body habitus Orientation/consciousness: patient oriented x3 Limitations: no limitations HENMT Head: Yes normal to inspection Ears: hearing grossly normal bilaterally Face and sinus: Yes normal facial exam Mouth: Normal oral and palatal mucosa present Throat: Yes posterior oropharynx normal Neck Neck: Yes normal visual inspection and Yes full ROM Chest Chest palpation & inspection: normal inspection of the chest Resp Effort & Inspection: normal respiratory effort Auscultation: clear to auscultation bilaterally Cardio Jugular venous distension: no JVD Rate: regular rate Rhythm: regular rhythm GI Inspection: Yes normal to inspection Palpation (GI): Soft to palpation, not firm and nontender Skin General skin exam: no rashes or lesions noted Neuro General: patient oriented x3 Course Reevaluation(s) Reevaluation #1: She is feeling better this time UA is normal, labs are within normal limit. hcg negative anticipate discharge. I discussed with the patient possibility of CT by given the fact the symptoms are improved the given the fact that she is 24 years old the with the side to hold off on the CT, she is comfortable with that Time: 10:51 Medications Administered Discontinued Medications Generic Name Dose Route Start Last Admin Trade Name Yoselin PRN Reason Stop Dose Admin Sodium Chloride 1,000 mls @ 999 mls/hr 07/17/24 08:45 07/17/24 10:21 Ns IVCONT 07/17/24 09:45 Infused .Q1H1M NADEGE Infusion Ketorolac Tromethamine 15 mg 07/17/24 08:40 07/17/24 08:52 Ketorolac Tromethamine 15 Mg/Ml Vial IVPUSH 07/17/24 08:41 15 mg ONCE ONE Administration Medical Decision Making Medical Decision Making [facility] Narrative: Patient presented with abdominal pain Differential Diagnosis Differential Diagnoses: The differential diagnosis associated with the presentation includes Differential diagnosis kidney stone/ UTI/colitis Admission/Observation Consideration of admission/observation: Escalation of care including admission/observation considered Lab Data [facility] Lab Attestation statement: I reviewed the patient's lab results. 07/17/24 08:37 07/17/24 08:37 Labs: Lab Results 07/17/24 07/17/24 Range/Units 08:37 08:41 WBC 10.6 (4.8-10.8) X10*3/uL RBC 4.14 L (4.20-5.50) X10*6/uL Hgb 12.4 (12.0-16.0) g/dl Hct 36.6 L (37.0-47.0) % MCV 88.4 (80.0-98.0) fL MCH 30.0 (27.0-33.0) pg MCHC 33.9 (31.0-35.0) g/dl RDW 12.5 (11.0-16.0) % Plt Count 256 (160-400) X10*3/uL MPV 9.3 L (9.4-12.3) fL Immature Gran % (Auto) 0.3 (0.0-0.4) % Neut % (Auto) 60.5 (45-73) % Lymph % (Auto) 31.1 (20-40) % [place] % (Auto) 6.0 (2-11) % Eos % (Auto) 1.8 (0-4) % Baso % (Auto) 0.3 (0-2) % Lymph # (Auto) 3.3 (1.2-4.9) X10*3/uL [place] # (Auto) 0.6 (0.1-1.2) X10*3/uL Eos # (Auto) 0.2 (0.0-0.4) X10*3/uL Baso # (Auto) 0.0 (0.0-0.2) X10*3/uL Abs Immat Gran (auto) 0.03 (0.00-0.03) X10*3/uL Absolute Neuts (auto) 6.4 (2.0-8.3) x10*3/uL Absolute Nucleated RBC 0.000 (0.0-0.012) X10*3/uL Nucleated RBC % (auto) 0.0 (0.0-0.2) /100WBC Sodium 138 (135-145) mmol/L Potassium 4.4 (3.3-5.1) mmol/L Chloride 105 (96-108) mmol/L Carbon Dioxide 25 (22-29) mmol/L Anion Gap 12 (12-20) BUN 14 (9-16) mg/dL Creatinine 0.75 (0.5-1.4) mg/dL Estim Creat Clear Calc 112.4 Estimated GFR > 60 Random Glucose 119 H (60-115) mg/dL Calcium 10.1 (8.4-10.2) mg/dL Total Bilirubin 0.2 (0.0-1.0) mg/dL AST 17 (5-31) U/L ALT 15 (0-31) U/L Alkaline Phosphatase 43 (39-117) U/L Troponin I High Sens < 2.7 (<3.5-17.0) ng/L Total Protein 7.5 (6.5-8.0) g/dL Albumin 4.1 (3.5-5.0) g/dL Lipase 28 (8-78) U/L Beta HCG, Quant < 2 mIU/mL Urine Color Yellow Urine Appearance Clear Urine pH 6.0 (5.0-9.0) Ur Specific [place] 1.025 (1.005-1.025) Urine Protein Negative (Neg-Trace) mg/dL Urine Glucose (UA) Negative (Negative) mg/dL Urine Ketones Negative (Negative) mg/dL Urine Blood Negative (Negative) Urine Nitrite Negative (Negative) Ur Leukocyte Esterase Negative (Negative) Urine RBC 0-2 (0-2) /HPF Urine WBC 0-5 (0-5) /HPF Ur Squamous Epith Cells 6-10 (0-2) /HPF Urine Bacteria None Seen (None Seen) Hyaline Casts 0-2 (0-2) /LPF Independent Interpretation I performed an independent interpretation of an: EKG (Sinus bradycardia rate [address]-T changes) Discharge Plan Discharge Clinical Impression: Abdominal pain in female patient Patient Disposition: Home, Self-Care Instructions: Abdominal Pain (ED) Additional Instructions: Follow-up with your primary care physician return to the emergency room if you are worse Prescriptions: New ibuprofen 800 mg tablet 800 mg PO TID PRN (Reason: pain) Qty: 20 0RF No Action (DME) lancets [FreeStyle Lancets] 28 gauge misc See Rx Instructions .MEDSUPPLY Qty: 100 6RF Rx Instructions: four times as day (DME) blood-glucose meter [FreeStyle [place] Lite] Kit See Rx Instructions .MEDSUPPLY Qty: 1 0RF Rx Instructions: four times a day (DME) FreeStyle Lite Strips Strip See Rx Instructions .MEDSUPPLY Qty: 150 6RF Rx Instructions: four times a day acetaminophen [Tylenol Extra Strength] 500 mg tablet 500 mg PO Q6H PRN (Reason: pain) Qty: 14 0RF metoclopramide HCl [Reglan] 10 mg tablet 10 mg PO Q6H PRN (Reason: nausea and vomiting) Qty: 14 0RF Unisom (doxylamine) 25 mg tablet 25 mg PO BEDTIME PRN (Reason: sleep) Qty: 30 3RF ferrous sulfate 324 mg (65 mg iron) tablet,delayed release (DR/EC) 324 mg PO TID Qty: 180 4RF Vitamin Plus Low Iron 27 mg iron- 1 mg tablet 1 tab PO DAILY Qty: 30 11RF Referrals: Physician,Unknown J [Primary Care Provider] - 3 days Interventions: ED Discharge Assessment Last Done: 07/17/24 11:10 Discharge Date/Time: 07/17/24 11:10 Print Language: Moz[place]
--- OUTSIDE RECORDS SUMMARY | 2024-07-17 08:39 | XMS_ITS | Continuity of Care Document ---
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 prevent future UTIs: ??? Drink plenty of fluids. This includes water, juice, or other caffeine-free drinks. Fluids help flush bacteria out of your body. ??? Empty your bladder. Always empty your bladder when you feel the urge to pee. And always pee before going to sleep. Urine that stays in your bladder can lead to infection. Try to pee before and after sex as well. ??? Practice good personal hygiene. Wipe yourself from front to back after using the toilet. This helps keep bacteria from getting into the urethra. ???Use condoms during sex. These help prevent UTIs caused by sexually transmitted bacteria. Also don'tuse spermicides during sex. These can increase the risk for UTIs. Choose other forms of control instead. For women who tend to get UTIs after sex, a low dose of a preventive antibiotic may be used. Be sure to discuss this choice with your healthcare provider. ??? Try holistic supplements, such as cranberry tablets and D-mannose. These may help prevent UTIs. ??? Try topical vaginal estrogen.You can use this to help prevent UTIs if you have gone through menopause. ?? Follow-up care Follow up with your healthcare provider as directed. They may test to make sure the infection has cleared. If needed, more treatment may be started. ?? When to get medical advice Call your healthcare provider right away if any of the following occur: ??? Frequent urination ??? Pain or burning when passing urine ??? Fever of 100.4??F (38??C) or higher, or as directed by your healthcare provider ??? Urine looks dark, cloudy, or reddish in color. This may mean that blood is inthe urine. ??? Urine smells bad ??? Feeling pain even when not urinating ??? Tiredness ??? Pain in the belly (abdomen) area below the bellybutton, or in the back or side, below the ribs ??? Nausea orvomiting ??? Have a strong urge to urinate, but only a small amount of urine is passed ??? Uncomfortable pressure above the pubic bone ??? Feeling confused or very tired (in older adults) ?? Last Reviewed Date: 2022 ?? [id number] [employer]. All rights reserved. This information is not intended as a substitute for professional medical care. Always follow your healthcare professional's instructions. ?? * Juwan HERNANDEZ, Janessa Salinas: PERFORM Event Display: Patient Education Leaflets Authored Date: [id number] What Is Syncope? ?? [id number] What Is Syncope? Syncope is also known as fainting or a blackout. It's an abrupt and short-term loss of consciousness and motor tone. It's often caused by a sudden drop in blood flow to the brain or a lack of oxygen to the brain. It's then followed by complete and often rapid spontaneous recovery. Most people don???t need follow- up treatment. However, you need treatment for certain causes, such as a heart or neurological issue. Also seek treatment if you were injured when you fainted, such as a head injury. The heart pumps blood nonstop to the brain and the rest of the body. Understanding heart rate and blood pressure changes Your brain and body need a steady flow of oxygen-rich blood. Your heart rate and blood pressure change to keep that flow steady throughout all your activities. ??? The heart makes electrical signals that move through it on pathways. These signals set the heart rate. They also tell the heart when topump blood. ??? In response to your body???s needs, your brain may also trigger changes in your heart rate and blood pressure. Sensors in the body detect the amount of blood flow going to the brain and other parts of the body. If these sensors detect low blood flow, they signal the body to increasethe amount of fluid in the blood vessels??and increase the heart rate to provide more circulation. ??? The blood leaving the heart with each contraction supplies oxygen and nutrients as it flows in your brain. ?? Warning signs Syncope often happens suddenly. Warning signs include: ??? Dimmed, blackened, or tunnel vision ??? Lightheadedness ??? Sleepiness ??? Rapid heartbeat Some people may also feel nauseated or sweaty. But you may have no warning signs at all. After syncope, you get better quickly. But you may feel tired. Don't drive if you are having warning signs that you may faint. ?? Is it serious? Syncope is a common problem with many possible causes. Often these causes are not serious. For instance, syncope can be caused by standing for too long or sitting up too fast. In some cases, you may never faint again. But if you have syncope with a heart problem, it can be a warning sign of a more serious problem. For this reason, your healthcare provider may order several tests to look at heart function and rhythm. If you have had syncope, talk with your healthcare provider. In older adults, syncope may be a sign that a heart attack has happened. Don't delay seeking treatment. Even if the cause of syncope is not serious, there is a risk of injury from falling when you lose consciousness. When possible, finding a cause can reduce this risk. ?? Last Reviewed Date: 2024 ?? [id number] [employer]. All rights reserved. This information is not intended as a substitute for professional medical care. Always follow your healthcare professional's instructions. ?? Patient Care team information Care Team Personnel Name: Brody MONROE, Crissy Urbina Position: [facility] Physician - Pediatrics Member Role: PCP Address: Address: [address] [facility] [place] [address]- Care Team Related Persons Name: TAMANNA PORTILLO Address: home [address] [place] [address] Name: NIKKO TOLEDO Address: [address] [address] Name: KARY ECHEVERRIA Address: [address] Address: [address]
[2024-07-17 08:40] LABS: MANUAL DIFF FLAG NO
[2024-07-17 08:41] LABS: Basophils Percent Auto 0.3 % (0-2); Eosinophils Absolute Auto 0.2 X10*3/uL (0.0-0.4); Eosinophils Percent Auto 1.8 % (0-4); Hematocrit 36.6 % (37.0-47.0); Hemoglobin 12.4 g/dl (12.0-16.0); Imm Gran Abs Auto 0.03 X10*3/uL (0.00-0.03); Imm Gran Pct Auto 0.3 % (0.0-0.4); Lymphocytes Absolute Auto 3.3 X10*3/uL (1.2-4.9); Lymphocytes Percent Auto 31.1 % (20-40); Mean Corpuscular HGB Conc 33.9 g/dl (31.0-35.0); Mean Corpuscular Volume 88.4 fL (80.0-98.0); Mean Platelet Volume 9.3 fL (9.4-12.3); Monocytes Absolute Auto 0.6 X10*3/uL (0.1-1.2); Neutrophils Absolute Auto 6.4 x10*3/uL (2.0-8.3); Neutrophils Percent Auto 60.5 % (45-73); Platelet Count 256 X10*3/uL (160-400); Red Blood Count 4.14 X10*6/uL (4.20-5.50); Red Cell Distribution Width 12.5 % (11.0-16.0); White Blood Count 10.6 X10*3/uL (4.8-10.8)
[2024-07-17 08:47] LABS: Appearance Urine Clear; Color Urine Yellow; Glucose Urine UA Negative (Negative); Leukocyte Esterase Urine Negative (Negative); Nitrite Urine Negative (Negative); Specific Gravity - Urine 1.025 (1.005-1.025); Urine Blood Negative (Negative); Urine Ketones Negative (Negative); Urine Protein Negative (Neg-Trace)
[2024-07-17] MEDS: Ketorolac Tromethamine 15 MG/ML VIAL IVPUSH (08:52)
[2024-07-17] MEDS: 0.9 % Sodium Chloride 1,000 ML 999 ML IVCONT (08:53)
[2024-07-17 08:55] LABS: Alanine Aminotransferase 15 U/L (0-31); Albumin Level 4.1 g/dL (3.5-5.0); Alkaline Phosphatase 43 U/L (39-117); Anion Gap 12 (12-20); Aspartate Amino Transferase 17 U/L (5-31); Bilirubin Total 0.2 mg/dL (0.0-1.0); Blood Urea Nitrogen 14 mg/dL (9-16); Calcium 10.1 mg/dL (8.4-10.2); Carbon Dioxide 25 mmol/L (22-29); Chloride 105 mmol/L (96-108); Creatinine Clr Calc Pharmacy 112.4; Estimated Glomerular Filt Rate > 60; Glucose Random 119 mg/dL (60-115); Lipase 28 U/L (8-78); Potassium 4.4 mmol/L (3.3-5.1); Sodium 138 mmol/L (135-145); Total Protein 7.5 g/dL (6.5-8.0)
--- NOTE | 2024-07-17 08:56 | PC.NURSE ---
Pt presents to ED from home, reports Lower ABD pain shooting upward, describes as sharp, 7/10. Also reports chest pain and tightness across her chest. Has hx of similar episodes, reports she has had kidney infections in the past. Alert and oriented, breathing even and unlabored, skin warm and dry. Sinus kar on bedside cardiac cath tech.
[2024-07-17 09:01] LABS: Bacteria Urine None Seen (None Seen); Hyaline Casts Urine 0-2 /LPF (0-2); RBC Urine 0-2 /HPF (0-2); WBC Urine 0-5 /HPF (0-5)
[2024-07-17 09:05] LABS: HCG Quantitative < 2 mIU/mL; Troponin-I High Sensitivity < 2.7 ng/L (<3.5-17.0)
[2024-07-17 11:09] VITALS: BP 112/58; PULSE 64; RESP 16; TEMP 36.8; O2SAT 99
[2024-07-17 11:10] VITALS: BP 112/58; PULSE 64; RESP 16; TEMP 36.8; O2SAT 99
== END 2024-07-17 11:10 | disposition home or self-care (01) ==
PROVIDERS: Emergency Provider Emergency Medicine
DX: R10.9 Unspecified abdominal pain (principal); R10.13 Epigastric pain; R00.1 Bradycardia, unspecified; R11.0 Nausea; Z79.899 Other long term (current) drug therapy
CPT/HCPCS: 36415; 80053; 81001; 83690; 84484; 84702; 85025; 93005; 96361; 96374; 99284; 99285; J1885

== ENCOUNTER 2024-11-01 09:47 | Emergency (ER) | payer OTHER, SELFPAY ==
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
[2024-11-01 10:12] VITALS: BP 124/86; BP 126/91; PULSE 76; PULSE 86; RESP 18; TEMP 36.8; O2SAT 98; O2SAT 99; BMI 28.9
[2024-11-01 10:48] LABS: HCG Quantitative < 2 mIU/mL
[2024-11-01] MEDS: Acetaminophen 325 MG TABLET 975 MG PO (10:57)
[2024-11-01] MEDS: Ibuprofen 600 MG TABLET PO (14:04)
[2024-11-01 14:26] VITALS: BP 134/70; PULSE 66; RESP 16; TEMP 36.8; O2SAT 98
[2024-11-01 14:32] VITALS: BP 134/70; PULSE 66; RESP 16; TEMP 36.8; O2SAT 98
== END 2024-11-01 14:33 | disposition home or self-care (01) ==
PROVIDERS: Registered Nurse Emergency; Emergency Provider Emergency Medicine
DX: S00.93XA Contusion of unspecified part of head, initial encounter (principal); S39.012A Strain of muscle, fascia and tendon of lower back, initial encounter; V43.53XA Car driver injured in collision with pick-up truck in traffic accident, initial encounter; K21.9 Gastro-esophageal reflux disease without esophagitis; R10.2 Pelvic and perineal pain; W22.11XA Striking against or struck by driver side automobile airbag, initial encounter; Y93.89 Activity, other specified; Y92.414 Local residential or business street as the place of occurrence of the external cause; Y99.9 Unspecified external cause status
CPT/HCPCS: 36415; 70450; 72100; 72125; 84702; 99283; 99284

== ENCOUNTER → 2024-11-01 10:11 | Outpatient (BNV) | payer OTHER, SELFPAY | PROVIDERS: Emergency Provider Emergency Medicine; Visit Provider Radiology Diagnostic Radiology | DX: M54.2 Cervicalgia (principal); S09.90XA Unspecified injury of head, initial encounter; M54.9 Dorsalgia, unspecified | CPT/HCPCS: 70450; 72100; 72125 ==

== ENCOUNTER 2024-11-03 13:22 | Emergency (ER) | payer OTHER, SELFPAY ==
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
[2024-11-03 13:54] VITALS: BP 142/83; PULSE 71; RESP 16; TEMP 36.6; O2SAT 99; BMI 31.8
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
[2024-11-03] MEDS: Acetaminophen 325 MG TABLET 975 MG PO (15:58)
--- NOTE | 2024-11-03 15:59 | PC.NURSE ---
pt a&ox3, vss, pt medicated for 8 headache, call jeffers within reach, plan of care ongoing
[2024-11-03 16:25] VITALS: BP 119/60; PULSE 73; RESP 16; TEMP 36.3; O2SAT 99
== END 2024-11-03 16:30 | disposition home or self-care (01) ==
PROVIDERS: Emergency Provider Emergency Medicine
DX: S06.0X0A Concussion without loss of consciousness, initial encounter (principal); V43.52XA Car driver injured in collision with other type car in traffic accident, initial encounter; W22.10XA Striking against or struck by unspecified automobile airbag, initial encounter; Y92.414 Local residential or business street as the place of occurrence of the external cause; Y93.9 Activity, unspecified; Y99.9 Unspecified external cause status; R51.9 Headache, unspecified; R11.2 Nausea with vomiting, unspecified; R41.0 Disorientation, unspecified
CPT/HCPCS: 70450; 99283; 99284

== ENCOUNTER → 2024-11-03 13:58 | Outpatient (BNV) | payer OTHER, SELFPAY | PROVIDERS: Emergency Provider Emergency Medicine; Visit Provider Nuclear Medicine | DX: R51.9 Headache, unspecified (principal); R11.10 Vomiting, unspecified | CPT/HCPCS: 70450 ==

== ENCOUNTER 2024-11-10 10:03 | Emergency (ER) | payer OTHER, SELFPAY ==
--- NOTE | ~2024-11-10 | XR_ITS ---
EXAMINATION: XR CHEST CLINICAL INFORMATION: cp COMPARISON: 12/02/2018. TECHNIQUE: 2 views of the chest were obtained. FINDINGS: The cardiac, hilar, and mediastinal contours are normal. The lungs are clear bilaterally. There is no pneumothorax or pleural effusion. There is no focal osseous or soft tissue abnormality. XR/XR chest 2V IMPRESSION: Normal chest. Electronically signed by: Wilder Becker MD 11/10/2024 12:42 [facility]
--- NOTE | ~2024-11-10 | CT_ITS ---
EXAMINATION: CT ABDOMEN AND PELVIS WITH CONTRAST CLINICAL INFORMATION: Diffuse abdominal pain, greater on the left, in the left suprapubic region. COMPARISON: No prior CT. TECHNIQUE: Multidetector volumetric images were obtained from the superior aspect of the liver through the pubic symphysis following administration 85 mL of Omnipaque 350 intravenous contrast. Sagittal and coronal reformatted images were obtained on the technologist's workstation. Oral contrast: No This CT examination was performed using dose optimization techniques as appropriate, variously including the following: *Automated exposure control *Adjustment of mA and/or kV according to patient size (this includes techniques or standardized protocols for targeted exams where dose is matched to indication/reason for exam; i.e. extremities or head) *Use of iterative reconstruction technique DLP: 572 mGy-cm FINDINGS: LUNG BASES: The visualized lung bases are unremarkable. LIVER, GALLBLADDER, AND BILIARY TREE: The liver is normal in size, shape, and attenuation. No focal hepatic lesion or biliary ductal dilatation is present. The gallbladder is unremarkable with no evidence of radiopaque gallstones, gallbladder wall thickening, or obvious pericholecystic inflammatory changes. PANCREAS: Unremarkable. SPLEEN: Unremarkable. ADRENAL GLANDS: Unremarkable. KIDNEYS AND URETERS: The kidneys are normal in size, shape, and attenuation. No hydronephrosis, hydroureter, or calculi seen. No perinephric stranding. BLADDER: Unremarkable. GASTROINTESTINAL TRACT: The small and large bowel are unremarkable. The appendix is unremarkable. ABDOMINAL WALL: No significant hernia is appreciated. LYMPH NODES: Normal. VASCULAR: Unremarkable. PELVIC VISCERA: -Left ovary is positioned somewhat ventrally, and contains a mildly hyperattenuating 1.5 x 4.3 x 4.0 cm hemorrhagic cyst. There is a small amount of abutting mildly hyperattenuating fluid in the left adnexa and cul-de-sac suggesting rupture. -Right ovary is normal. -Uterus is normal. OSSEOUS STRUCTURES: -No suspicious lytic or blastic bone lesions. Bone island in the left ilium. Normal hip and SI joints. CT/CT abdomen pelvis w IV con IMPRESSION: 1. There is a 1.5 x 4.3 x 4.0 cm hemorrhagic cyst in the left ovary, which is positioned somewhat ventrally. There is a small amount of abutting left adnexal and pelvic mildly high attenuating fluid suggesting rupture. 2. Remainder of the examination is normal. Electronically signed by: Wilder Becker MD 11/10/2024 02:42 PM DENIA
[2024-11-10 10:07] VITALS: BP 146/85; PULSE 64; RESP 16; TEMP 37; O2SAT 97; BMI 31.5
--- NOTE | 2024-11-10 10:10 | ECG_ITS ---
Test Reason : CP Blood Pressure : */* mmHG Vent. Rate : 62 BPM Atrial Rate : 62 BPM P-R Int : 154 ms QRS Dur : 86 ms QT Int : 390 ms P-R-T Axes : 46 31 43 degrees QTcB Int : 395 ms Normal sinus rhythm Normal ECG When compared with ECG of 17-Jul-2024 08:25, No significant change was found Referred By: Generic ED Physician Electronically Signed By: Andrew Duncan
[2024-11-10 10:31] LABS: MANUAL DIFF FLAG NO
[2024-11-10 10:34] LABS: Appearance Urine Clear; Basophils Percent Auto 0.3 % (0-2); Color Urine Yellow; Eosinophils Absolute Auto 0.2 X10*3/uL (0.0-0.4); Eosinophils Percent Auto 1.3 % (0-4); Glucose Urine UA Negative (Negative); Hematocrit 38.4 % (37.0-47.0); Hemoglobin 13.3 g/dl (12.0-16.0); Imm Gran Abs Auto 0.03 X10*3/uL (0.00-0.03); Imm Gran Pct Auto 0.3 % (0.0-0.4); Leukocyte Esterase Urine Negative (Negative); Lymphocytes Absolute Auto 3.9 X10*3/uL (1.2-4.9); Mean Corpuscular HGB Conc 34.6 g/dl (31.0-35.0); Mean Corpuscular Hemoglobin 29.4 pg (27.0-33.0); Mean Corpuscular Volume 84.8 fL (80.0-98.0); Mean Platelet Volume 9.4 fL (9.4-12.3); Monocytes Absolute Auto 0.6 X10*3/uL (0.1-1.2); Neutrophils Absolute Auto 6.7 x10*3/uL (2.0-8.3); Neutrophils Percent Auto 59.1 % (45-73); Nitrite Urine Negative (Negative); PH 5.5 (5.0-9.0); Platelet Count 264 X10*3/uL (160-400); Red Blood Count 4.53 X10*6/uL (4.20-5.50); Red Cell Distribution Width 12.8 % (11.0-16.0); Specific Gravity - Urine 1.025 (1.005-1.025); Urine Blood Negative (Negative); Urine Ketones Negative (Negative); Urine Protein Negative (Neg-Trace); White Blood Count 11.4 X10*3/uL (4.8-10.8)
[2024-11-10 10:36] LABS: UPreg QC Valid YES; Urine Pregnancy NEGATIVE (NEGATIVE)
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
[2024-11-10 11:03] LABS: Alanine Aminotransferase 24 U/L (0-31); Albumin Level 4.3 g/dL (3.5-5.0); Alkaline Phosphatase 41 U/L (39-117); Anion Gap 8 (12-20); Aspartate Amino Transferase 25 U/L (5-31); Bilirubin Direct 0.1 mg/dL (0.0-0.5); Bilirubin Total 0.3 mg/dL (0.0-1.0); Blood Urea Nitrogen 10 mg/dL (9-16); Calcium 9.8 mg/dL (8.4-10.2); Carbon Dioxide 26 mmol/L (22-29); Chloride 109 mmol/L (96-108); Creatinine Clr Calc Pharmacy 106.7; Estimated Glomerular Filt Rate > 60; Glucose Random 127 mg/dL (60-115); Lipase 21 U/L (8-78); Potassium 4.2 mmol/L (3.3-5.1); Sodium 139 mmol/L (135-145); Total Protein 7.8 g/dL (6.5-8.0)
[2024-11-10 11:04] LABS: HCG Quantitative < 2 mIU/mL
[2024-11-10] MEDS: 0.9 % Sodium Chloride 1,000 ML 999 ML IV (12:49)
[2024-11-10] MEDS: ondansetron HCL 4 MG/2 ML VIAL IVPUSH (12:52)
[2024-11-10] MEDS: Ketorolac Tromethamine 15 MG/ML VIAL IVPUSH (12:52)
[2024-11-10 13:13] VITALS: BP 125/66; PULSE 72; RESP 17; TEMP 37.2; O2SAT 100
[2024-11-10] MEDS: iohexoL 350 MG/ML 100 ML INFUS..BTL 85 ML IV (13:36)
[2024-11-10 15:34] VITALS: BP 125/66; PULSE 72; RESP 17; TEMP 37.2; O2SAT 100
== END 2024-11-10 15:35 | disposition home or self-care (01) ==
PROVIDERS: Emergency Provider Emergency Medicine
DX: N83.202 Unspecified ovarian cyst, left side (principal); K66.1 Hemoperitoneum; R07.89 Other chest pain; R10.2 Pelvic and perineal pain; R35.0 Frequency of micturition; R11.2 Nausea with vomiting, unspecified; Z79.899 Other long term (current) drug therapy
CPT/HCPCS: 36415; 71046; 74177; 80048; 80076; 81003; 81025; 83690; 84702; 85025; 93005; 99284; J1885; J2405; Q9967

== ENCOUNTER → 2024-11-10 10:10 | Outpatient (BNV) | payer OTHER, SELFPAY | PROVIDERS: Emergency Provider Emergency Medicine; Visit Provider Internal Medicine Cardiovascular Disease | DX: R07.9 Chest pain, unspecified (principal) | CPT/HCPCS: 93010 ==

== ENCOUNTER → 2024-11-10 12:16 | Outpatient (BNV) | payer OTHER, SELFPAY | PROVIDERS: Emergency Provider Emergency Medicine; Visit Provider Radiology Diagnostic Radiology | DX: N83.202 Unspecified ovarian cyst, left side (principal); R07.9 Chest pain, unspecified | CPT/HCPCS: 71046; 74177 ==

== ENCOUNTER 2025-03-24 18:56 | Emergency (ER) | payer OTHER, SELFPAY ==
--- NOTE | ~2025-03-24 | US_ITS ---
CLINICAL HISTORY: lower abdominal pain and cramping after fall Ultrasound OB first trimester Comparison: None Findings: Single live intrauterine . CRL: 1.0 cm. EGA: 7 weeks and 1 day. RICHARD: 10/05/25. Previously established gestational age: N/A. Normal yolk sac. FHR: 155 bpm. No subchorionic bleed. Normal uterus and ovaries. Right corpus luteum. No free fluid. Impression: Single live intrauterine estimated at 7 weeks and 1 day gestational age by today's ultrasound criteria. This document has been electronically signed by: Shanice Bowie MD on 03/24/2025 20:30:13
[2025-03-24 19:01] VITALS: BP 121/69; PULSE 79; RESP 16; TEMP 36.7; O2SAT 97; BMI 32.0
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
[2025-03-24 19:20] LABS: MANUAL DIFF FLAG NO
[2025-03-24 19:27] LABS: Appearance Urine Cloudy; Color Urine Yellow; Glucose Urine UA Negative (Negative); Leukocyte Esterase Urine Negative (Negative); Nitrite Urine Negative (Negative); PH 6.5 (5.0-9.0); Specific Gravity - Urine >= 1.030 (1.005-1.025); Urine Blood Negative (Negative); Urine Ketones Trace mg/dL (Negative); Urine Protein Negative (Neg-Trace)
[2025-03-24 19:27] LABS: Basophils Percent Auto 0.3 % (0-2); Eosinophils Absolute Auto 0.1 X10*3/uL (0.0-0.4); Eosinophils Percent Auto 0.7 % (0-4); Hematocrit 35.5 % (37.0-47.0); Hemoglobin 12.1 g/dl (12.0-16.0); Imm Gran Abs Auto 0.05 X10*3/uL (0.00-0.03); Imm Gran Pct Auto 0.4 % (0.0-0.4); Lymphocytes Absolute Auto 3.7 X10*3/uL (1.2-4.9); Lymphocytes Percent Auto 29.1 % (20-40); Mean Corpuscular HGB Conc 34.1 g/dl (31.0-35.0); Mean Corpuscular Hemoglobin 29.5 pg (27.0-33.0); Mean Corpuscular Volume 86.6 fL (80.0-98.0); Mean Platelet Volume 9.3 fL (9.4-12.3); Monocytes Absolute Auto 0.6 X10*3/uL (0.1-1.2); Neutrophils Absolute Auto 8.1 x10*3/uL (2.0-8.3); Neutrophils Percent Auto 64.5 % (45-73); Platelet Count 263 X10*3/uL (160-400); White Blood Count 12.6 X10*3/uL (4.8-10.8)
[2025-03-24 19:29] LABS: Bacteria Urine 1+ (None Seen); Hyaline Casts Urine 0-2 /LPF (0-2); RBC Urine 0-2 /HPF (0-2); WBC Urine 0-5 /HPF (0-5)
--- OUTSIDE RECORDS SUMMARY | 2025-03-24 19:34 | XMS_ITS | Encounter Summary ---
Author Organization [facility] Address [address] [place] [address] Care Team Providers Care Warehouse Traffic Supervisor Name Role Phone Rishi Byers MD Primary Care Provider [phone] Reason for Referral * Imaging (Routine) - Authorized Specialty Diagnoses / Procedures Referred By Contac t Referred To Contact Radiology Diagnoses Positive blood test Procedures US OB Less 14 Wks Single or First Gestation Danica Monroy CNM [address] [place] [address] Phone: tel: fax: [address] [phone] Phone: tel: Referral ID Status Reason Start Date Expiration Date V isits Requested Visits Authorized [id number] Authorized 03/16/2025 03/16/2026 1 1 Reason for Visit * Imaging (Routine) - Authorized Specialty Diagnoses / Procedures Referred By Contac t Referred To Contact Radiology Diagnoses Positive blood test Procedures US OB Less 14 Wks Single or First Gestation Danica Monroy CNM [address] [place] [address] Phone: tel: fax: [address] [phone] Phone: tel: Referral ID Status Reason Start Date Expiration Date V isits Requested Visits Authorized [id number] Authorized 03/16/2025 03/16/2026 1 1 Encounter Details Date Type Department Care Team (Latest Contact Info) Description 03/21/2025 1:00 PM EDT - 03/21/2025 11:59 PM EDT Hospital Encounter [facility] Ultrasound [address] [place] [id number] Positive blood test Discharge Disposition: Home or Self Care Social History Tobacco Use Types Packs/Day Years Used Date Smoking Tobacco: Never Smokeless Tobacco: Never Alcohol Use Standard Drinks/Week Comments Not Currently 0 (1 standard drink = 0.6 oz pur e alcohol) STOPPED WITH + HCG Comments Yes Sex and Gender Information Value Date Recorded Sex Assigned at Not on file Legal Sex Female 4:29 AM EST Gender Identity Not on file Sexual Orientation Not on file 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 90 each 03/16/2025 ondansetron ODT (ZOFRAN-ODT) 4 mg disintegrating tablet TAKE 1 TABLET BY MOUTH EVERY 6 HOURS FOR 14 DAYS NEEDED FOR NAUSEA & VOMITING 03/10/2025 WesTab Plus 27 mg iron- 1 mg tablet Take 1 tablet by mouth 1 (one) time each day. 03/09/2025 documented as of this encounter Discharge Disposition Disposition Code Departure Means Destination Home or Self Care documented in this encounter Plan of Treatment Not on file documented as of this encounter Procedures Procedure Name Priority Date/Time Associated Diagnosis Comments US OB LESS 14 WKS SINGLE OR FIRST GESTATION Routine 03/21/2025 1:37 PM EDT Positive blood test documented in this encounter Results * US OB Less 14 Wks Single or First Gestation (03/21/2025 1:37 PM EDT) Anatomical Region Laterality Modality Body Ultrasound 03/22/2025 8:39 AM EDT Impressions 03/22/2025 8:48 AM EDT Live single uterine gestation. The best estimated gestational age based upon the sonographic measurements is 7 weeks 2 days which yields an EDC of 11/05/25 -------- FINAL REPORT -------- Dictated By: Ramon Nam Dictated Date: 03/22/2025 08:39 ET Assigned Physician: Ramon Nam Reviewed and Electronically Signed By: Ramon Nam Signed Date: 03/22/2025 08:48 ET Workstation ID: [id number] Transcribed By: Self Edit Transcribed Date: 03/22/2025 08:39 ET Narrative 03/22/2025 8:48 AM EDT EXAM: EARLY OBSTETRIC ULTRASOUND CLINICAL INFORMATION: Uncertain dating. ??Positive beta hCG TECHNIQUE: Transcutaneous pelvic ultrasound. The patient declined transvaginal scan Color mapping was performed. Doppler spectral analysis was performed. Comparison: No prior studies are available for comparison. FINDINGS: Quality: Adequate Expected region of vagina: No suspicious abnormality Cervix: The estimated cervical length is 3.9 cm. ??No abnormality demonstrated Uterine position: Anteverted Uterine size: 8.9 x 5.3 x 5.9 cm Endometrium: There is no abnormality of the endometrium. ??There is a smooth intrauterine gestational sac which appears appropriately positioned. Intrauterine contents: ?? There is an intrauterine gestational sac which appears appropriately positioned within the endometrial cavity. ??Smooth contours. Placenta: ??No discrete placenta demonstrated. ??Uniform decidual reaction. Yolk sac: There is a smooth yolk sac present. pole: ??A pole is demonstrated. ??No gross anomalies. cardiac activity: ??Regular cardiac activity was demonstrated Biometrics: Gestational sac size: Not documented Yolk sac size: ??0.4 cm Watts-rump length: ??1.15 cm cardiac rate: ??138 bpm The estimated gestational age based on menstrual datin weeks zero days The estimated gestational age based upon the aggregate sonographic measurements: ??7 weeks 2 days EDC: Based upon the sonographic dating is 11/05/25 somatic activity documented: ??Not documented survey: Early gestational age precludes survey. ??No gross abnormality. Myometrium: No suspicious abnormalities Uterine contour: Small Right ovary: Not visualized. ??No suspicious right adnexal mass or collection. Left ovary: Not visualized. ??No suspicious adnexal mass or collection Free fluid: None. Procedure Note Ramon Nam MD - 03/22/2025 EXAM: EARLY OBSTETRIC ULTRASOUND CLINICAL INFORMATION: Uncertain dating. Positive beta hCG TECHNIQUE: Transcutaneous pelvic ultrasound. The patient declined transvaginal scan Color mapping was performed. Doppler spectral analysis was performed. Comparison: No prior studies are available for comparison. FINDINGS: Quality: Adequate Expected region of vagina: No suspicious abnormality Cervix: The estimated cervical length is 3.9 cm. No abnormalitydemonstrated Uterine position: Anteverted Uterine size: 8.9 x 5.3 x 5.9 cm Endometrium: There is no abnormality of the endometrium. There is asmooth intrauterine gestational sac which appears appropriatelypositioned. Intrauterine contents: There is an intrauterine gestational sac whichappears appropriately positioned within the endometrial cavity. Smoothcontours. Placenta: No discrete placenta demonstrated. Uniform decidualreaction. Yolk sac: There is a smooth yolk sac present. pole: A pole is demonstrated. No gross anomalies. cardiac activity: Regular cardiac activity was demonstrated Biometrics: Gestational sac size: Not documented Yolk sac size: 0.4 cm Watts-rump length: 1.15 cm cardiac rate: 138 bpm The estimated gestational age based on menstrual datin weeks zerodays The estimated gestational age based upon the aggregate sonographicmeasurements: 7 weeks 2 days EDC: Based upon the sonographic dating is 11/05/25 somatic activity documented: Not documented survey: Early gestational age precludes survey. No grossabnormality. Myometrium: No suspicious abnormalities Uterine contour: Small Right ovary: Not visualized. No suspicious right adnexal mass orcollection. Left ovary: Not visualized. No suspicious adnexal mass or collection Free fluid: None. IMPRESSION: Live single uterine gestation. The best estimated gestational age based upon the sonographic measurementsis 7 weeks 2 days which yields an EDC of 11/05/25 -------- FINAL REPORT -------- Dictated By: Ramon Nam Dictated Date: 03/22/2025 08:39 ET Assigned Physician: Ramon Nam Reviewed and Electronically Signed By: Ramon Nam Signed Date: 03/22/2025 08:48 ET Workstation ID: [id number] Transcribed By: Self Edit Transcribed Date: 03/22/2025 08:39 ET us Danica Monroy CNPat IMG OB US PROCEDURES Final Re sult documented in this encounter Visit Diagnoses Diagnosis Positive blood test documented in this encounter Care Teams Warehouse Traffic Supervisor Relationship Specialty Start Date End Date Rishi Byers MD [address] [place] [address] [address] [place], [place] PCP - General Internal Medicine 08/28/21 documented as of this encounter
[2025-03-24 19:44] LABS: Alanine Aminotransferase 19 U/L (0-31); Albumin Level 4.1 g/dL (3.5-5.0); Alkaline Phosphatase 35 U/L (39-117); Anion Gap 12 (12-20); Aspartate Amino Transferase 23 U/L (5-31); Bilirubin Total 0.2 mg/dL (0.0-1.0); Blood Urea Nitrogen 10 mg/dL (9-16); Calcium 9.4 mg/dL (8.4-10.2); Carbon Dioxide 21 mmol/L (22-29); Chloride 105 mmol/L (96-108); Creatinine Clr Calc Pharmacy 140.3; Estimated Glomerular Filt Rate > 60; Glucose Random 141 mg/dL (60-115); Lipase 20 U/L (8-78); Potassium 3.8 mmol/L (3.3-5.1); Sodium 134 mmol/L (135-145); Total Protein 7.3 g/dL (6.5-8.0)
[2025-03-24 20:00] LABS: HCG Quantitative 56001 mIU/mL
[2025-03-24] MEDS: Acetaminophen 325 MG TABLET 975 MG PO (20:10)
[2025-03-24] MEDS: Lidocaine 4 % Patch ADH..PATCH 1 PATCH TRANSDERMA (20:10)
[2025-03-24 20:30] VITALS: BP 122/64; PULSE 88; RESP 18; TEMP 36.7; O2SAT 97
[2025-03-24 20:38] VITALS: BP 122/64; PULSE 88; RESP 18; TEMP 36.7; O2SAT 97
== END 2025-03-24 20:40 | disposition home or self-care (01) ==
PROVIDERS: Physician Assistant; Emergency Provider Emergency Medicine
DX: O26.891 Other specified pregnancy related conditions, first trimester (principal); O26.91 Pregnancy related conditions, unspecified, first trimester; Z3A.10 10 weeks gestation of pregnancy; R10.2 Pelvic and perineal pain; Z79.899 Other long term (current) drug therapy
CPT/HCPCS: 36415; 76801; 80053; 81001; 83690; 84702; 85025; 87086; 99284

== ENCOUNTER → 2025-03-24 19:00 | Outpatient (BNV) | payer OTHER, SELFPAY | PROVIDERS: Emergency Provider Emergency Medicine; Visit Provider Radiology Diagnostic Radiology | DX: O26.891 Other specified pregnancy related conditions, first trimester (principal); R10.30 Lower abdominal pain, unspecified; Z3A.01 Less than 8 weeks gestation of pregnancy | CPT/HCPCS: 76801 ==

== ENCOUNTER 2025-03-31 20:15 | Emergency (ER) | payer OTHER, SELFPAY ==
[2025-03-31 20:16] VITALS: BP 132/86; PULSE 60; RESP 16; TEMP 36.6; O2SAT 98; BMI 31.2
--- NOTE | 2025-03-31 20:17 | ED_ITS ---
HPI - General Adult General Chief complaint: Nausea/Vomiting/Diarrhea Stated complaint: abd pain//chest pain Time Seen by Provider: 03/31/25 21:41 Related Data Previous Rx's ?Medication ?Instructions ?Recorded acetaminophen 500 mg tablet 500 mg PO Q6H PRN pain #14 tabs 01/02/21 (Tylenol Extra Strength) vitamin with calcium 1 tab PO DAILY #30 tabs 09/11/21 no.72-iron 27 mg-folic acid 1 mg tablet ( Vitamins Plus Low Iron) doxylamine succinate 25 mg tablet 25 mg PO BEDTIME PRN sleep #30 tabs 12/10/21 (Unisom (doxylamine)) ferrous sulfate 324 mg (65 mg 324 mg PO TID #180 tabs 01/29/22 iron) tablet,delayed release blood sugar diagnostic (FreeStyle #150 ea 02/11/22 Lite Strips) blood-glucose meter (FreeStyle #1 ea 02/11/22 [place] Lite kit) lancets 28 gauge (FreeStyle #100 ea 02/11/22 Lancets) metoclopramide HCl 10 mg tablet 10 mg PO Q6H PRN nausea and 02/02/23 (Reglan) vomiting #14 tabs ibuprofen 800 mg tablet 800 mg PO TID PRN pain #20 tabs 07/17/24 cyclobenzaprine 10 mg tablet 10 mg PO TID PRN muscle spasm #10 11/01/24 tabs ibuprofen 600 mg tablet 600 mg PO Q6H PRN pain #14 tabs 11/01/24 lidocaine 5 % topical patch 1 patch topical DAILY #15 ea 11/01/24 lidocaine 5 % topical patch 1 patch topical DAILY #30 ea 03/24/25 prochlorperazine maleate 5 mg 5 mg PO TID PRN nausea and 04/01/25 tablet (Compazine) vomiting #10 tabs Allergies Allergy/AdvReac Type Severity Reaction Status Date / Time No Known Allergies Allergy Verified 03/31/25 20:21 [No Known Allergies*] [facility] Past Medical History Medical History Complete Missed with demise before 20 completed weeks of gestation GERD (gastroesophageal reflux disease) Migraine No known health problems Family History Family History Mother Arthritis Lupus (systemic lupus erythematosus) History of depression Brother Autism disorder Social History Social History Household Members: Family Alcohol intake: never Patient Tobacco Use Status: Never used Tobacco Smoked in Last 30 Days: No Use of substances other than those prescribed or required for medical reasons: No Substance Use Type: Marijuana Trauma History: current partner a few mos ago. Special peyton needs: No Agree to transfusion: Yes Advance Directives: No Advance Directives Information Provided: No Patient : Yes Physical Exam ED Vital Signs: Vital Signs - 24 hr 03/31/25 20:16 03/31/25 21:12 04/01/25 00:19 Temperature 98 F 98.1 F Pulse Rate 60 67 77 Respiratory Rate 16 18 18 Blood Pressure 132/86 119/75 128/63 Pulse Oximetry 98 96 98 Oxygen Delivery Method Room Air Room Air Room Air BMI result Body Mass Index 31.2 Course Course Course Narrative: RME performed by Tamara Euceda PA-C. Patient is a 25 year old assigned female at presenting to the emergency department with nausea, vomiting, and . Detailed physical exam and review of systems are deferred to the loan servicing representative. Labs ordered. Patient placed back in the waiting room pending room availability and results. Patient seen and dispositioned by Dr. Ness. Please refer to her note from same visit date. Medications Administered Discontinued Medications Generic Name Dose Route Start Last Admin Trade Name Freq PRN Reason Stop Dose Admin Lactated Ringer's 2,000 mls @ 999 mls/hr 03/31/25 22:00 04/01/25 00:26 Lr IV 04/01/25 00:00 0 mls/hr .Q2H1M NADEGE Infusion Morphine Sulfate 1 mg 03/31/25 22:46 03/31/25 22:50 Morphine Sulfate 2 Mg/Ml Cartridge IVPUSH 03/31/25 22:47 1 mg ONCE ONE Administration Protocol Prochlorperazine Edisylate 10 mg 03/31/25 21:49 03/31/25 22:31 Prochlorperazine Edisylate 10 Mg/2 Ml Vial IVPUSH 03/31/25 21:50 10 mg ONCE ONE Administration Medical Decision Making Lab Data 03/31/25 20:37 03/31/25 20:37 Labs: Lab Results 03/31/25 Range/Units 20:37 WBC 12.9 H (4.8-10.8) X10*3/uL RBC 4.19 L (4.20-5.50) X10*6/uL Hgb 12.4 (12.0-16.0) g/dl Hct 35.6 L (37.0-47.0) % MCV 85.0 (80.0-98.0) fL MCH 29.6 (27.0-33.0) pg MCHC 34.8 (31.0-35.0) g/dl RDW 12.8 (11.0-16.0) % Plt Count 274 (160-400) X10*3/uL MPV 9.0 L (9.4-12.3) fL Immature Gran % (Auto) 0.3 (0.0-0.4) % Neut % (Auto) 67.9 (45-73) % Lymph % (Auto) 26.1 (20-40) % [place] % (Auto) 5.0 (2-11) % Eos % (Auto) 0.5 (0-4) % Baso % (Auto) 0.2 (0-2) % Lymph # (Auto) 3.4 (1.2-4.9) X10*3/uL [place] # (Auto) 0.6 (0.1-1.2) X10*3/uL Eos # (Auto) 0.1 (0.0-0.4) X10*3/uL Baso # (Auto) 0.0 (0.0-0.2) X10*3/uL Abs Immat Gran (auto) 0.04 H (0.00-0.03) X10*3/uL Absolute Neuts (auto) 8.8 H (2.0-8.3) x10*3/uL Absolute Nucleated RBC 0.000 (0.0-0.012) X10*3/uL Nucleated RBC % (auto) 0.0 (0.0-0.2) /100WBC Sodium 140 (135-145) mmol/L Potassium 3.9 (3.3-5.1) mmol/L Chloride 106 (96-108) mmol/L Carbon Dioxide 25 (22-29) mmol/L Anion Gap 13 (12-20) BUN 10 (9-16) mg/dL Creatinine 0.60 (0.5-1.4) mg/dL Estim Creat Clear Calc 131.4 Estimated GFR > 60 Random Glucose 84 (60-115) mg/dL Calcium 10.2 D (8.4-10.2) mg/dL Magnesium 1.9 (1.6-2.6) mg/dL Total Bilirubin 0.5 (0.0-1.0) mg/dL AST 23 (5-31) U/L ALT 21 (0-31) U/L Alkaline Phosphatase 37 L (39-117) U/L Troponin I High Sens < 2.7 (<3.5-17.0) ng/L Total Protein 8.0 (6.5-8.0) g/dL Albumin 4.6 (3.5-5.0) g/dL Beta HCG, Quant 093322 mIU/mL Urine Color Dark Yellow Urine Appearance Clear Urine pH 6.0 (5.0-9.0) Ur Specific [place] >= 1.030 H (1.005-1.025) Urine Protein 30 (1+) H (Neg-Trace) mg/dL Urine Glucose (UA) Negative (Negative) mg/dL Urine Ketones >=160 (Negative) mg/dL Urine Blood Negative (Negative) Urine Nitrite Negative (Negative) Ur Leukocyte Esterase Negative (Negative) Urine RBC 0-2 (0-2) /HPF Urine WBC 0-5 (0-5) /HPF Ur Squamous Epith Cells 11-20 (0-2) /HPF Urine Bacteria 1+ (None Seen) Hyaline Casts 3-5 (0-2) /LPF Urine Opiates Screen Not Detected (Not Detect) Ur Buprenorphine Scrn Not Detected (Not Detect) ng/mL Ur Oxycodone Screen Not Detected (Not Detect) ng/mL Urine Methadone Screen Not Detected (Not Detect) ng/mL Urine Fentanyl Screen Not Detected (Not Detect) Ur Barbiturates Screen Not Detected (Not Detect) Ur Phencyclidine Scrn Not Detected (Not Detect) Ur Amphetamines Screen Not Detected (Not Detect) U Benzodiazepines Scrn Not Detected (Not Detect) Urine Cocaine Screen Not Detected (Not Detect) U Marijuana (THC) Screen POSITIVE H (Not Detect) Discharge Plan Discharge Clinical Impression: Nausea and vomiting during Patient Disposition: Left Against Medical Advice Instructions: Acute Nausea and Vomiting (ED) Additional Instructions: Please follow-up with your primary care physician tomorrow. If you have any worsening or new symptoms, please return to the emergency room or call 911 Prescriptions: New prochlorperazine maleate [Compazine] 5 mg tablet 5 mg PO TID PRN (Reason: nausea and vomiting) Qty: 10 0RF No Action (DME) lancets [FreeStyle Lancets] 28 gauge misc See Rx Instructions .MEDSUPPLY Qty: 100 6RF Rx Instructions: four times as day (DME) blood-glucose meter [FreeStyle [place] Lite] Kit See Rx Instructions .MEDSUPPLY Qty: 1 0RF Rx Instructions: four times a day (DME) FreeStyle Lite Strips Strip See Rx Instructions .MEDSUPPLY Qty: 150 6RF Rx Instructions: four times a day acetaminophen [Tylenol Extra Strength] 500 mg tablet 500 mg PO Q6H PRN (Reason: pain) Qty: 14 0RF ibuprofen 800 mg tablet 800 mg PO TID PRN (Reason: pain) Qty: 20 0RF metoclopramide HCl [Reglan] 10 mg tablet 10 mg PO Q6H PRN (Reason: nausea and vomiting) Qty: 14 0RF cyclobenzaprine 10 mg tablet 10 mg PO TID PRN (Reason: muscle spasm) Qty: 10 0RF lidocaine 5 % adhesive patch,medicated 1 patch topical DAILY Qty: 15 0RF Rx Instructions: leave on most painful area for up to 12 hrs ibuprofen 600 mg tablet 600 mg PO Q6H PRN (Reason: pain) Qty: 14 0RF lidocaine 5 % adhesive patch,medicated 1 patch topical DAILY Qty: 30 0RF Rx Instructions: leave on most painful area for up to 12 hrs Unisom (doxylamine) 25 mg tablet 25 mg PO BEDTIME PRN (Reason: sleep) Qty: 30 3RF ferrous sulfate 324 mg (65 mg iron) tablet,delayed release (DR/EC) 324 mg PO TID Qty: 180 4RF Vitamin Plus Low Iron 27 mg iron- 1 mg tablet 1 tab PO DAILY Qty: 30 11RF Interventions: ED Discharge Assessment Last Done: 04/01/25 00:19 Discharge Date/Time: 04/01/25 00:32 Print Language: Icelandic
--- OUTSIDE RECORDS SUMMARY | 2025-03-31 20:43 | XMS_ITS | Clinical Summary ---
Author Organization [employer] Address [address] [place] [address] Care Team Providers Care Geoduck Diver Name Role Phone Unavailable Primary Care Provider Unavailabl e Allergies No known active allergies Medications ondansetron (Zofran) 4 MG tablet 1 tablet in the morning. Active Active Problems Problem Noted Date Diagnosed Date Migraine with aura and with status migrainosus, not intractable 06/30/2023 Myopia of both eyes 03/12/2023 Social History Tobacco Use Types Packs/Day Years Used Date Smoking Tobacco: Former Cigarettes Tobacco Cessation:Counseling Given: Not Answered Comments:Former smoker Marijuana for 3 years Comments Unknown Sex and Gender Information Value Date Recorded Sex Assigned at Female 03/19/2023 2:49 PM EDT Legal Sex Female 8:39 PM EDT Gender Identity Choose not to disclose 2:49 PM EDT Sexual Orientation Choose not to disclose 2022 2:49 PM EDT Last Filed Vital Signs Vital Sign Reading Time Taken Comments Blood Pressure 100/62 06/30/2023 2:39 PM EDT Pulse - - Temperature 36.2 ??C (97.1 ??F) 06/30/2023 2:39 PM ED T Respiratory Rate - - Oxygen Saturation - - Inhaled Oxygen Concentration - - Weight - - Height - - Body Mass Index - - Plan of Treatment Health Maintenance Due Date Last Done Comments Depression Screening 1999 HIV Screening 1999 SDOH Screening 1999 Disability Screening 1999 Alcohol/Substance Use Screening 2011 Family Planning (PISQ) 2014 Hepatitis C Screening 2017 Pap Smear 2020 COVID-19 Vaccine ( season) 2024 Influenza Vaccine (#1) 2024 9, 11/17/2018, 07/16/2016, Additional history exists Tobacco Screening 08/08/2025 08/08/2024 DTaP/Tdap/Td Vaccines (8 - Td or Tdap) 03/13/2032 03/13/2022, 04/09/2011, 04/03/2004, Additional history exists Zoster Vaccines (1 of 2) 2049 RSV Patients and Patients Aged 60 years or older (1 - 1-dose 75+ series) 2074 HIB Vaccines Completed 09/06/2000, 12/02, 1999, Additional history exists Hepatitis B Vaccines Completed 09/06/2000, 1999, 1999 IPV Vaccines Completed 04/03/2004, 03/01, 1999, Additional history exists HPV Vaccines Completed 09/02/2012, 11/2011, 04/09/2011 Hepatitis A Vaccines Completed 10/02/2014, 04/09/20 11 Meningococcal Vaccine Completed 12/19/2015 , 12/19/2015, 04/09/2011 Meningococcal B Vaccine Aged Out No l onger eligible based on patient's age to complete this topic Pneumococcal Vaccine: Pediatrics (0 to 5 Years) and At-Risk Patients (6 to 49) Years) Aged Out No longer eligible based on patient's age to complete this topic RSV under 20 months Aged Out No longe r eligible based on patient's age to complete this topic Rotavirus Vaccines Aged Out No longer eligible based on patient's age to complete this topic Insurance [facility]
[2025-03-31 20:45] LABS: MANUAL DIFF FLAG NO
[2025-03-31 20:49] LABS: Appearance Urine Clear; Basophils Percent Auto 0.2 % (0-2); Color Urine Dark Yellow; Eosinophils Absolute Auto 0.1 X10*3/uL (0.0-0.4); Eosinophils Percent Auto 0.5 % (0-4); Glucose Urine UA Negative (Negative); Hematocrit 35.6 % (37.0-47.0); Hemoglobin 12.4 g/dl (12.0-16.0); Imm Gran Abs Auto 0.04 X10*3/uL (0.00-0.03); Imm Gran Pct Auto 0.3 % (0.0-0.4); Leukocyte Esterase Urine Negative (Negative); Lymphocytes Absolute Auto 3.4 X10*3/uL (1.2-4.9); Lymphocytes Percent Auto 26.1 % (20-40); Mean Corpuscular HGB Conc 34.8 g/dl (31.0-35.0); Mean Corpuscular Hemoglobin 29.6 pg (27.0-33.0); Monocytes Absolute Auto 0.6 X10*3/uL (0.1-1.2); Neutrophils Absolute Auto 8.8 x10*3/uL (2.0-8.3); Neutrophils Percent Auto 67.9 % (45-73); Nitrite Urine Negative (Negative); Platelet Count 274 X10*3/uL (160-400); Red Blood Count 4.19 X10*6/uL (4.20-5.50); Red Cell Distribution Width 12.8 % (11.0-16.0); Specific Gravity - Urine >= 1.030 (1.005-1.025); UMIC TRIGGER UACC YES; Urine Blood Negative (Negative); Urine Ketones >=160 mg/dL (Negative); Urine Protein 30 (1+) mg/dL (Neg-Trace); White Blood Count 12.9 X10*3/uL (4.8-10.8)
[2025-03-31 20:51] LABS: Bacteria Urine 1+ (None Seen); RBC Urine 0-2 /HPF (0-2); WBC Urine 0-5 /HPF (0-5)
[2025-03-31 21:08] LABS: Alanine Aminotransferase 21 U/L (0-31); Albumin Level 4.6 g/dL (3.5-5.0); Alkaline Phosphatase 37 U/L (39-117); Anion Gap 13 (12-20); Aspartate Amino Transferase 23 U/L (5-31); Bilirubin Total 0.5 mg/dL (0.0-1.0); Blood Urea Nitrogen 10 mg/dL (9-16); Calcium 10.2 mg/dL (8.4-10.2); Carbon Dioxide 25 mmol/L (22-29); Chloride 106 mmol/L (96-108); Creatinine Clr Calc Pharmacy 131.4; Estimated Glomerular Filt Rate > 60; Glucose Random 84 mg/dL (60-115); Magnesium 1.9 mg/dL (1.6-2.6); Potassium 3.9 mmol/L (3.3-5.1); Sodium 140 mmol/L (135-145)
[2025-03-31 21:12] VITALS: BP 119/75; PULSE 67; RESP 18; O2SAT 96
[2025-03-31 21:28] LABS: HCG Quantitative 130171 mIU/mL
--- NOTE | 2025-03-31 21:44 | ECG_ITS ---
Test Reason : CP Blood Pressure : */* mmHG Vent. Rate : 62 BPM Atrial Rate : 62 BPM P-R Int : 150 ms QRS Dur : 88 ms QT Int : 370 ms P-R-T Axes : 14 25 4 degrees QTcB Int : 375 ms Normal sinus rhythm with sinus arrhythmia Possible Inferior infarct , age undetermined Abnormal ECG When compared with ECG of 10-Nov-2024 10:24, Borderline criteria for Inferior infarct are now Present T wave inversion now evident in Inferior leads Nonspecific T wave abnormality now evident in Anterior leads Referred By: Lacy Ness Electronically Signed By: EPI TAVERAS MD
--- NOTE | 2025-03-31 21:52 | ED.NAVMDI ---
HPI - Nausea/Vomiting/Diarrhea General Chief complaint: Nausea/Vomiting/Diarrhea Stated complaint: abd pain//chest pain Time Seen by Provider: 03/31/25 21:41 Source: patient Mode of arrival: ambulatory Limitations: no limitations History of Present Illness ED Provider: Dr. Lacy Ness HPI Narrative: Patient is currently a at approximately 8 weeks of gestational age. Patient comes to the emergency room complaining of nausea and vomiting throughout this , no diarrhea, complaining of abdominal cramping since this morning. Patient has been taking sublingual Zofran without any relief. Patient denies any vaginal bleeding or spotting. Patient states that her urine looks much darker than usual. Denies dysuria. Patient states that she is very concerned about possibly having a miscarriage. Patient states that her 1st , she was 8 weeks of gestational age, had severe nausea, vomiting and abdominal cramping with the vaginal bleeding. An ultrasound was done and it was determined that the patient had a missed , a needed vaginal medication (misoprostol). Earlier today when patient was in triage, she complained of left-sided chest pain. At this time patient denies chest pain, no shortness of breath, no lower extremity edema or pain. Related Data Previous Rx's ?Medication ?Instructions ?Recorded acetaminophen 500 mg tablet 500 mg PO Q6H PRN pain #14 tabs 01/02/21 (Tylenol Extra Strength) vitamin with calcium 1 tab PO DAILY #30 tabs 09/11/21 no.72-iron 27 mg-folic acid 1 mg tablet ( Vitamins Plus Low Iron) doxylamine succinate 25 mg tablet 25 mg PO BEDTIME PRN sleep #30 tabs 12/10/21 (Unisom (doxylamine)) ferrous sulfate 324 mg (65 mg 324 mg PO TID #180 tabs 01/29/22 iron) tablet,delayed release blood sugar diagnostic (FreeStyle #150 ea 02/11/22 Lite Strips) blood-glucose meter (FreeStyle #1 ea 02/11/22 [place] Lite kit) lancets 28 gauge (FreeStyle #100 ea 02/11/22 Lancets) metoclopramide HCl 10 mg tablet 10 mg PO Q6H PRN nausea and 02/02/23 (Reglan) vomiting #14 tabs ibuprofen 800 mg tablet 800 mg PO TID PRN pain #20 tabs 07/17/24 cyclobenzaprine 10 mg tablet 10 mg PO TID PRN muscle spasm #10 11/01/24 tabs ibuprofen 600 mg tablet 600 mg PO Q6H PRN pain #14 tabs 11/01/24 lidocaine 5 % topical patch 1 patch topical DAILY #15 ea 11/01/24 lidocaine 5 % topical patch 1 patch topical DAILY #30 ea 03/24/25 prochlorperazine maleate 5 mg 5 mg PO TID PRN nausea and 04/01/25 tablet (Compazine) vomiting #10 tabs Allergies Allergy/AdvReac Type Severity Reaction Status Date / Time No Known Allergies Allergy Verified 03/31/25 20:21 [No Known Allergies*] Review of Systems Review of Systems: Constitutional : No Weight loss, No Fever, No Chills, No Night Sweats, No Fatigue, No Malaise ENT/Mouth : No Hearing loss, No Ear Pain, No Nasal Congestion, No Sinus Pain, No Hoarseness, No sore throat, No Rhinorrhea, No Swallowing Difficulty Eyes: No Eye Pain, No Swelling, No Redness, No Foreign Body, No Discharge, No Vision Changes Cardiovascular : No Chest Pain, No SOB, No Dyspnea on Exertion, No Orthopnea, No Edema, No Palpitations Respiratory : No Cough, No Sputum, No Wheezing, No Smoke Exposure, No Dyspnea Gastrointestinal : Complaining of nausea and vomiting, No Diarrhea, No Constipation, complaining of abdominal/suprapubic cramping Genitourinary : Denies vaginal bleeding, No Dysuria, complaining of dark looking urine, No Urinary Frequency, No Hematuria, No Urinary Incontinence, No Urgency, No Flank Pain, No Urinary Flow Changes, No Hesitancy Musculoskeletal : No joint pain, No Myalgias, No Joint Swelling Skin : No Skin Lesions, No rash Neuro : No Weakness, No Numbness, No Paresthesias, No Loss of Consciousness, No Dizziness, No Headache Psych : No Anxiety/Panic, No Depression, No SI/HI/AH/VH, No Social Issues, Heme/Lymph: No Bruising, No Bleeding,No Lymphadenopathy Endocrine : No Polyuria, No Polydipsia, No Temperature Intolerance PMFSH Past Medical History Medical History Complete Missed with demise before 20 completed weeks of gestation GERD (gastroesophageal reflux disease) Migraine No known health problems Family History Family History Mother Arthritis Lupus (systemic lupus erythematosus) History of depression Brother Autism disorder Social History Social History Household Members: Family Alcohol intake: never Patient Tobacco Use Status: Never used Tobacco Smoked in Last 30 Days: No Use of substances other than those prescribed or required for medical reasons: No Substance Use Type: Marijuana Trauma History: current partner a few mos ago. Special peyton needs: No Agree to transfusion: Yes Advance Directives: No Advance Directives Information Provided: No Patient : Yes Physical Exam Vital Signs: Vital Signs: Last Vital Signs Temp 98 F 03/31/25 20:16 Pulse 67 03/31/25 21:12 Resp 18 03/31/25 21:12 BP 119/75 03/31/25 21:12 Pulse Ox 96 03/31/25 21:12 O2 Del Method Room Air 03/31/25 21:12 BMI result Body Mass Index 31.2 Const: Other: Appearance: Alert. Oriented X3. No acute distress. Eyes: Pupils equal, round and reactive to light. ENT: Pharynx normal. Neck: Normal inspection. Neck supple. No lymph nodes noted. No crepitus CVS: Normal heart rate and rhythm. Pulses normal. Normal S1 and S2 Respiratory: No respiratory distress. Breath sounds normal. No Wheezing. No rales Abdomen: Soft, mild discomfort to palpation in all quadrants, no rebound or guarding,. No distention. Skin: Skin warm and dry. Normal skin color. Normal skin turgor. Extremities: No lower extremity edema. No Lacerations. No Rash Neuro: Oriented X 3. No motor deficit. No sensory deficit. Moving all extremities. No slurred speech. CN 2 through 12 grossly intact Psych: calm, cooperative, a bit anxious Course Course Course Narrative: My interpretation of labs: Patient's white blood cell count 12.9, reactive leukocytosis secondary to , normal chemistry, glucose 84, normal LFTs, hCG 130,000, 171, urine with proteinuria Patient receiving IV fluids, Compazine Ultrasound pending Medications Administered Discontinued Medications Generic Name Dose Route Start Last Admin Trade Name Freq PRN Reason Stop Dose Admin Lactated Ringer's 2,000 mls @ 999 mls/hr 03/31/25 22:00 03/31/25 22:30 Lr IV 04/01/25 00:00 999 mls/hr .Q2H1M NADEGE Administration Morphine Sulfate 1 mg 03/31/25 22:46 03/31/25 22:50 Morphine Sulfate 2 Mg/Ml Cartridge IVPUSH 03/31/25 22:47 1 mg ONCE ONE Administration Protocol Prochlorperazine Edisylate 10 mg 03/31/25 21:49 03/31/25 22:31 Prochlorperazine Edisylate 10 Mg/2 Ml Vial IVPUSH 03/31/25 21:50 10 mg ONCE ONE Administration Medical Decision Making Medical Decision Making [facility] Narrative: Interpretation of labs: No significant abnormality in patient's hematology and chemistry, LFTs normal, hCG 130,171, urinalysis has proteinuria, no urinary tract infection Patient's past medical history, history of missed at 8 weeks of gestational age, it would be best to do an ultrasound today. I was informed by the patient's nurse that the patient is not going to stay for the ultrasound. I spoke with the patient, discussed with the patient that we will not now she has a missed again. Patient states that she has been getting several phone calls from her neurology tech and has no one to take care of her young child at home. Patient states that she will follow-up with her OBGYN. Patient states that overall she feels much better, at this time she has no nausea vomiting or abdominal pain or pressure. Differential Diagnosis Differential Diagnoses: The differential diagnosis associated with the presentation includes (Hyperemesis, missed , gastroenteritis) Lab Data [facility] Lab Attestation statement: I reviewed the patient's lab results. 03/31/25 20:37 03/31/25 20:37 Labs: Lab Results 03/31/25 Range/Units 20:37 WBC 12.9 H (4.8-10.8) X10*3/uL RBC 4.19 L (4.20-5.50) X10*6/uL Hgb 12.4 (12.0-16.0) g/dl Hct 35.6 L (37.0-47.0) % MCV 85.0 (80.0-98.0) fL MCH 29.6 (27.0-33.0) pg MCHC 34.8 (31.0-35.0) g/dl RDW 12.8 (11.0-16.0) % Plt Count 274 (160-400) X10*3/uL MPV 9.0 L (9.4-12.3) fL Immature Gran % (Auto) 0.3 (0.0-0.4) % Neut % (Auto) 67.9 (45-73) % Lymph % (Auto) 26.1 (20-40) % [place] % (Auto) 5.0 (2-11) % Eos % (Auto) 0.5 (0-4) % Baso % (Auto) 0.2 (0-2) % Lymph # (Auto) 3.4 (1.2-4.9) X10*3/uL [place] # (Auto) 0.6 (0.1-1.2) X10*3/uL Eos # (Auto) 0.1 (0.0-0.4) X10*3/uL Baso # (Auto) 0.0 (0.0-0.2) X10*3/uL Abs Immat Gran (auto) 0.04 H (0.00-0.03) X10*3/uL Absolute Neuts (auto) 8.8 H (2.0-8.3) x10*3/uL Absolute Nucleated RBC 0.000 (0.0-0.012) X10*3/uL Nucleated RBC % (auto) 0.0 (0.0-0.2) /100WBC Sodium 140 (135-145) mmol/L Potassium 3.9 (3.3-5.1) mmol/L Chloride 106 (96-108) mmol/L Carbon Dioxide 25 (22-29) mmol/L Anion Gap 13 (12-20) BUN 10 (9-16) mg/dL Creatinine 0.60 (0.5-1.4) mg/dL Estim Creat Clear Calc 131.4 Estimated GFR > 60 Random Glucose 84 (60-115) mg/dL Calcium 10.2 D (8.4-10.2) mg/dL Magnesium 1.9 (1.6-2.6) mg/dL Total Bilirubin 0.5 (0.0-1.0) mg/dL AST 23 (5-31) U/L ALT 21 (0-31) U/L Alkaline Phosphatase 37 L (39-117) U/L Troponin I High Sens < 2.7 (<3.5-17.0) ng/L Total Protein 8.0 (6.5-8.0) g/dL Albumin 4.6 (3.5-5.0) g/dL Beta HCG, Quant [id number] mIU/mL Urine Color Dark Yellow Urine Appearance Clear Urine pH 6.0 (5.0-9.0) Ur Specific [place] >= 1.030 H (1.005-1.025) Urine Protein 30 (1+) H (Neg-Trace) mg/dL Urine Glucose (UA) Negative (Negative) mg/dL Urine Ketones >=160 (Negative) mg/dL Urine Blood Negative (Negative) Urine Nitrite Negative (Negative) Ur Leukocyte Esterase Negative (Negative) Urine RBC 0-2 (0-2) /HPF Urine WBC 0-5 (0-5) /HPF Ur Squamous Epith Cells 11-20 (0-2) /HPF Urine Bacteria 1+ (None Seen) Hyaline Casts 3-5 (0-2) /LPF Urine Opiates Screen Not Detected (Not Detect) Ur Buprenorphine Scrn Not Detected (Not Detect) ng/mL Ur Oxycodone Screen Not Detected (Not Detect) ng/mL Urine Methadone Screen Not Detected (Not Detect) ng/mL Urine Fentanyl Screen Not Detected (Not Detect) Ur Barbiturates Screen Not Detected (Not Detect) Ur Phencyclidine Scrn Not Detected (Not Detect) Ur Amphetamines Screen Not Detected (Not Detect) U Benzodiazepines Scrn Not Detected (Not Detect) Urine Cocaine Screen Not Detected (Not Detect) U Marijuana (THC) Screen POSITIVE H (Not Detect) Discharge Plan Discharge Clinical Impression: Nausea and vomiting during Patient Disposition: Left Against Medical Advice Instructions: Acute Nausea and Vomiting (ED) Additional Instructions: Please follow-up with your primary care physician tomorrow. If you have any worsening or new symptoms, please return to the emergency room or call 911 Prescriptions: New prochlorperazine maleate [Compazine] 5 mg tablet 5 mg PO TID PRN (Reason: nausea and vomiting) Qty: 10 0RF No Action (DME) lancets [FreeStyle Lancets] 28 gauge misc See Rx Instructions .MEDSUPPLY Qty: 100 6RF Rx Instructions: four times as day (DME) blood-glucose meter [FreeStyle [place] Lite] Kit See Rx Instructions .MEDSUPPLY Qty: 1 0RF Rx Instructions: four times a day (DME) FreeStyle Lite Strips Strip See Rx Instructions .MEDSUPPLY Qty: 150 6RF Rx Instructions: four times a day acetaminophen [Tylenol Extra Strength] 500 mg tablet 500 mg PO Q6H PRN (Reason: pain) Qty: 14 0RF ibuprofen 800 mg tablet 800 mg PO TID PRN (Reason: pain) Qty: 20 0RF metoclopramide HCl [Reglan] 10 mg tablet 10 mg PO Q6H PRN (Reason: nausea and vomiting) Qty: 14 0RF cyclobenzaprine 10 mg tablet 10 mg PO TID PRN (Reason: muscle spasm) Qty: 10 0RF lidocaine 5 % adhesive patch,medicated 1 patch topical DAILY Qty: 15 0RF Rx Instructions: leave on most painful area for up to 12 hrs ibuprofen 600 mg tablet 600 mg PO Q6H PRN (Reason: pain) Qty: 14 0RF lidocaine 5 % adhesive patch,medicated 1 patch topical DAILY Qty: 30 0RF Rx Instructions: leave on most painful area for up to 12 hrs Unisom (doxylamine) 25 mg tablet 25 mg PO BEDTIME PRN (Reason: sleep) Qty: 30 3RF ferrous sulfate 324 mg (65 mg iron) tablet,delayed release (DR/EC) 324 mg PO TID Qty: 180 4RF Vitamin Plus Low Iron 27 mg iron- 1 mg tablet 1 tab PO DAILY Qty: 30 11RF Print Language: Urdu
[2025-03-31 22:08] LABS: Troponin-I High Sensitivity < 2.7 ng/L (<3.5-17.0)
[2025-03-31 22:10] LABS: Amphetamine Screen Urine Not Detected (Not Detect); Barbiturates, Urine Not Detected (Not Detect); Benzodiazepines Screen Urine Not Detected (Not Detect); Buprenorphine Scr Not Detected (Not Detect); Cannabinoid Screen Urine POSITIVE (Not Detect); Cocaine Screen Urine Not Detected (Not Detect); Fentanyl, urine Not Detected (Not Detect); Methadone Screen, Urine Not Detected (Not Detect); Opiate Screen Urine Not Detected (Not Detect); Oxycodone Screen Urine Not Detected (Not Detect); Phencyclidine Screen Urine Not Detected (Not Detect)
[2025-03-31] MEDS: Lactated Ringers 2,000 ML 999 ML IV (22:30)
[2025-03-31] MEDS: Prochlorperazine Edisylate 10 MG/2 ML VIAL IVPUSH (22:31)
[2025-03-31] MEDS: Morphine Sulfate 2 MG/ML CARTRIDGE 1 MG IVPUSH (22:50)
[2025-04-01 00:19] VITALS: BP 128/63; PULSE 77; RESP 18; TEMP 36.7; O2SAT 98
--- NOTE | 2025-04-02 21:58 | PC.NURSE ---
late entry, PT did not complete full infusion of IV fluids. 1000ml or 2,000 ml infusion. unable to end, only pause
== END 2025-04-01 00:32 | disposition left against medical advice (07) ==
PROVIDERS: Physician Assistant Medical; Emergency Provider Emergency Medicine
DX: O21.9 Vomiting of pregnancy, unspecified (principal); Z3A.01 Less than 8 weeks gestation of pregnancy; Z53.29 Procedure and treatment not carried out because of patient's decision for other reasons
CPT/HCPCS: 36415; 80053; 80307; 81001; 83735; 84484; 84702; 85025; 93005; 96361; 96374; 96375; 99284; J0737; J2270; J7120

== ENCOUNTER → 2025-03-31 21:44 | Outpatient (BNV) | payer OTHER, SELFPAY | PROVIDERS: Emergency Provider Emergency Medicine; Visit Provider Internal Medicine Cardiovascular Disease | DX: I49.9 Cardiac arrhythmia, unspecified (principal) | CPT/HCPCS: 93010 ==